=== PATIENT | female | born 1945 | race Caucasian/White ===

== ENCOUNTER 2020-02-13 14:37 | Inpatient (IN) | payer MEDICARE, SELFPAY ==
[2020-02-13] VITALS (9 sets, daily range): BP systolic 127–149; BP diastolic 56–79; PULSE 77–98; RESP 15–20; TEMP 36.7–37; O2SAT 92–97; BMI 31.6
--- NOTE | 2020-02-13 14:53 | XR_ITS ---
WS: [id number] XR chest 1V [id number] REASON FOR EXAM: coughing up blood FINDINGS: Infiltrate is noted in the right lower lung. This was not seen on August 14, 2019. There appears to be mild nodules now seen in both lung grajeda. The heart is not enlarged. [place] the hilum is and apices are normal. XR/XR chest 1V 00312 IMPRESSION: Infiltrate in the right lower lung Small nodules are now seen in both lung grajeda Follow-up evaluation after therapy for the infiltrate recommended.
[2020-02-13 15:57] LABS: Basophils # 0.1 10^3/uL (0.0-0.1); Basophils % 1.1 %; Eosinophils # 0.1 10^3/uL (0.0-0.8); Eosinophils % 0.7 %; Hematocrit 41.9 % (37.0-47.0); Hemoglobin 13.1 g/dL (11.5-15.3); Lymphocytes # 1.1 10^3/uL (0.8-4.8); Lymphocytes % 13.5 %; Mean Corpuscular HGB Conc 31.3 g/dL (30.0-36.0); Mean Corpuscular Hemoglobin 29.9 pg (28.0-34.0); Mean Corpuscular Volume 95.7 fL (81-99); Mean Platelet Volume 10.1 fL (7.4-10.4); Monocytes # 0.5 10^3/uL (0.2-0.9); Monocytes % 6.1 %; Neutrophils # 6.3 10^3/uL (1.8-7.7); Neutrophils % 78.4 %; Nucleated Red Blood Cells % 0 %; Platelet Count 317 10^3/cmm (130-400); Red Blood Count 4.38 10^6/uL (4.1-5.3); Red Cell Distribution Width 13.5 % (12.1-15.1); White Blood Count 8.1 10^3/uL (4.0-10.0)
--- NOTE | 2020-02-13 16:06 | CTR_ITS ---
PROCEDURE INFORMATION: Exam: CT Angiography Chest With Contrast Exam date and time: 02/13/2020 4:12 PM Age: 74 years old Clinical indication: Shortness of breath; Additional info: Dyspnea TECHNIQUE: Imaging protocol: Computed tomographic angiography of the chest with intravenous contrast. 3D rendering: MIP and/or 3D reconstructed images were created by the technologist. Total DLP: 558.18 mGy-cm Radiation optimization: All CT scans at this facility use at least one of these dose optimization techniques: automated exposure control; mA and/or kV adjustment per patient size (includes targeted exams where dose is matched to clinical indication); or iterative reconstruction. Contrast material: VISI 320; Contrast volume: 95 ml; Contrast route: LT AC; COMPARISON: CTA Chest-Pulmonary Emb [id number] 08/15/2019 5:34 PM FINDINGS: Pulmonary arteries: There is no evidence of filling defects within the pulmonary arterial circulation to suggest pulmonary embolism. Aorta: Unremarkable. No aortic aneurysm. No aortic dissection. Lungs: There is partial atelectasis of the right lower lobe medially at the right lung base. There is some bronchial wall thickening in peribronchial infiltrate and consolidation in the right lower lobe consistent with bronchopneumonia. There is also a tree-in-bud type pattern of centrilobular opacities which may represent some infectious bronchiolitis. There are scattered lobules throughout both lungs with an upper lobe predominance demonstrating ground-glass opacities which could represent some pneumonitis including viral pneumonitis. There is a new ill-defined 6 mm size nodule in the left lower lobe on image number 252 series 2 which is likely inflammatory. There is mild lobular septal thickening of the lung bases which may represent some interstitial edema. Left lower lobe pneumonia demonstrated on the previous examination has cleared. Pleural space: There are small bilateral pleural effusions. Heart: Unremarkable. No cardiomegaly. No pericardial effusion. Lymph nodes: There is mild hilar, subcarinal mediastinal adenopathy with many small mediastinal lymph nodes measuring up to 8 x 14 mm. This represents an increase from 08/15/2019. Bones/joints: Unremarkable. No acute fracture. Soft tissues: Unremarkable. CT/CT angio chest PE protcl [id number] IMPRESSION: 1. Findings of infectious bronchiolitis and bronchopneumonia in the right lower lobe. 2. Scattered bilateral ground-glass opacities which could represent additional areas of pneumonitis 3. Possible interstitial edema at the lung bases 4. Right lower lobe atelectasis 5. Small bilateral pleural effusions. 6. Mild hilar and mediastinal adenopathy which may be reactive. 7. New left lower lobe nodule, follow-up according to Fleischner society guidelines is recommended. For patients at low risk (minimal or absent history of smoking and of other known risk factors), recommend CT at 6-12 months, then consider CT at 18-24 months. For patients at high risk (history of smoking or of other known risk factors), recommend CT at 6-12 months, then CT at 18-24 months. (Sage et al., Fleischner Society, 2017) 8. No evidence of pulmonary embolism. COMMENTS: Findings were discussed with vito Pritchett at 02/13/2020 5:55 PM CDT. Radiation Dose CTDIVOL = (mGy): DLP = 558.18 (mGy-cm)
--- NOTE | 2020-02-13 16:07 | ECG_ITS ---
Measurements Intervals [place] Rate: 75 P: 71 TN: 156 QRS: -44 QRSD: 137 T: 120 QT: 449 QTc: 502 SINUS RHYTHM POSSIBLE LEFT ATRIAL ENLARGEMENT [-0.1mV P WAVE IN V1/V2] LEFT AXIS DEVIATION [QRS AXIS < -30] LEFT BUNDLE BRANCH BLOCK [120+ ms QRS DURATION, 80+ ms Q/S IN V1/V2, 85+ ms R IN I/ I/ I/ I/aVL/V5/V6] Compared to ECG 08/14/2019 18:01:36 No significant changes Electronically Signed On 02-14-2020 12:41:14 CDT by Jody Elaine [id number] f
[2020-02-13 16:10] LABS: Alanine Aminotransferase 14 U/L (0-33); Albumin Level 3.3 g/dL (3.5-5.2); Alkaline Phosphatase 82 IU/L (35-105); Aspartate Amino Transferase 22 U/L (0-32); Blood Urea Nitrogen 20 mg/dL (8-23); Calcium 10.1 mg/dL (8.5-10.5); Carbon Dioxide 26 mmol/L (22-29); Chloride 105 mmol/L (98-107); Creatinine Clr Calc Pharmacy 35.6719; Globulin 3.3 g/dL (1.3-4.6); Glucose 113 mg/dL (65-115); Osmolality Calculated 289 mOsm/kg (285-295); Sodium 141 mmol/L (136-145); Total Bilirubin 0.4 mg/dL (0.15-1.2); Total Protein 6.6 g/dL (6.6-8.7)
--- NOTE | 2020-02-13 16:16 | ED_ITS ---
HPI - General Adult General: Chief complaint: General Medical Stated complaint: coughing up blood Time Seen by Provider: 02/13/20 15:43 Source: patient Mode of arrival: ambulatory Limitations: no limitations History of Present Illness: HPI narrative: 74-year-old female who states she has had a cough over the last 2 days. She states she had a coughing fit today and started coughing up some blood. States the blood was bright red in nature. She had slight shortness of breath and low-grade fevers. Denies any worsening improving factors. Denies any vomiting. She denies any chest pain. Onset (ago): hour(s) Severity: moderate Associated symptoms: Deny chest pain, dyspnea, headache(s), nausea, rash or vomiting Review of Systems Const: Denies: fever, chills, body aches or change in appetite Eyes: Denies: blurry vision or eye discomfort ENMT: Denies: throat pain or dental pain Card: Denies: chest pain Resp: Reports: productive cough and coughing up blood; Denies: shortness of breath GI: Denies: abdominal pain, nausea, vomiting or diarrhea : Denies: painful urination Musc: Denies: neck pain or back pain Skin/Breast: Denies: rash Neuro: Denies: headache Psych: Denies: depression Gume/Lymph: Denies: easy bruising All/Imm: Denies: hives PFS ED PFSH: Medical History Chest pain CKD (chronic kidney disease) Hyperlipidemia Hypothyroidism LBBB (left bundle branch block) SVT (supraventricular tachycardia) Social History Smoking and tobacco status: never smoked Alcohol intake: never Physical Exam Const: COMMON NORMALS: no apparent distress, oriented x3 and healthy appearing HENMT: COMMON NORMALS: normocephalic and head/scalp atraumatic HEAD & SCALP: normocephalic and atraumatic Eye: COMMON NORMALS: PERRL and EOMs intact bilaterally PUPIL: Yes PERRL Neck/C-Spine: COMMON NORMALS: full ROM and supple Chest: COMMONS NORMALS: inspection of chest normal and palpation of chest normal Resp: COMMON NORMALS: normal respiratory effort, no retractions and no use of accessory muscles OTHER: rales in RLL Cardio: COMMON NORMALS: regular rate, regular rhythm and no murmurs RATE: regular rate RHYTHM: regular rhythm GI: COMMON NORMALS: normal to inspection, nondistended, normoactive bowel sounds, soft to palpation, non-tender and no masses PALPATION: Yes soft Extremity: COMMON NORMALS: normal to inspection and full ROM Neuro: COMMON NORMALS: oriented x3, moves all extremities and no focal motor deficits Psych: COMMON NORMALS: mental status grossly normal, thought process normal and cooperative THOUGHT PROCESS: normal thought process Skin: COMMON NORMALS: no rashes or lesions noted and no wounds GENERAL SKIN EXAM: no rashes or lesions noted Course Vital Signs: Vital signs: Vital Signs Temperature 98.1 F 02/13/20 14:43 Pulse Rate 83 02/13/20 18:00 Respiratory Rate 15 02/13/20 18:00 Blood Pressure 137/71 02/13/20 18:00 Pulse Oximetry 94 02/13/20 18:00 MDM - General Adult MDM Narrative: Medical decision making narrative: Patient presents here with cough hemoptysis. Patient's CT shows a pneumonia. Patient is well-appearing here and is in no extreme distress. Patient started on IV antibiotics I spoke to the hospitalist and will admit at this time. Lab Data: Labs: Lab Results 02/13/20 02/13/20 02/13/20 Range/Units 15:50 15:50 15:50 WBC 8.1 (4.0-10.0) 10^3/ uL RBC 4.38 (4.1-5.3) 10^6/u L Hgb 13.1 (11.5-15.3) g/dL Hct 41.9 (37.0-47.0) % MCV 95.7 (81-99) fL MCH 29.9 (28.0-34.0) pg MCHC 31.3 (30.0-36.0) g/dL RDW 13.5 (12.1-15.1) % Plt Count 317 (130-400) 10^3/c mm MPV 10.1 (7.4-10.4) fL Neut % (Auto) 78.4 % Lymph % (Auto) 13.5 % [place] % (Auto) 6.1 % Eos % (Auto) 0.7 % Baso % (Auto) 1.1 % Neut # (Auto) 6.3 (1.8-7.7) 10^3/u L Lymph # (Auto) 1.1 (0.8-4.8) 10^3/u L [place] # (Auto) 0.5 (0.2-0.9) 10^3/u L Eos # (Auto) 0.1 (0.0-0.8) 10^3/u L Baso # (Auto) 0.1 (0.0-0.1) 10^3/u L Nucleated RBC % (a uto) 0 % Nucleated RBCs # 0.0 /100WBC PT 14.70 H (10.5-13.3) SECO NDS INR 1.11 (0.8-1.2) Sodium 141 (136-145) mmol/L Potassium 4.0 (3.5-5.1) mmol/L Chloride 105 (98-107) mmol/L Carbon Dioxide 26 (22-29) mmol/L Anion Gap 14.0 (5-19) BUN 20 (8-23) mg/dL Creatinine 1.5 H (0.5-0.9) mg/dL Glucose 113 (65-115) mg/dL Calculated Osmolal ity 289 (285-295) mOsm/k g Calcium 10.1 (8.5-10.5) mg/dL Total Bilirubin 0.4 (0.15-1.2) mg/dL AST 22 (0-32) U/L ALT 14 (0-33) U/L Alkaline Phosphata se 82 (35-105) IU/L Troponin T Baselin e (0-10) ng/mL Troponin T 120 Min [place] (0-10) ng/mL Delta Troponin T (0-10) ABS# Total Protein 6.6 (6.6-8.7) g/dL Albumin 3.3 L (3.5-5.2) g/dL Globulin 3.3 (1.3-4.6) g/dL Influenza Type A A g (Negative) POC Influenza B Ag (Negative) 02/13/20 02/13/20 02/13/20 Range/Units 15:50 17:54 17:55 WBC (4.0-10.0) 10^3/ uL RBC (4.1-5.3) 10^6/u L Hgb (11.5-15.3) g/dL Hct (37.0-47.0) % MCV (81-99) fL MCH (28.0-34.0) pg MCHC (30.0-36.0) g/dL RDW (12.1-15.1) % Plt Count (130-400) 10^3/c mm MPV (7.4-10.4) fL Neut % (Auto) % Lymph % (Auto) % [place] % (Auto) % Eos % (Auto) % Baso % (Auto) % Neut # (Auto) (1.8-7.7) 10^3/u L Lymph # (Auto) (0.8-4.8) 10^3/u L [place] # (Auto) (0.2-0.9) 10^3/u L Eos # (Auto) (0.0-0.8) 10^3/u L Baso # (Auto) (0.0-0.1) 10^3/u L Nucleated RBC % (a uto) % Nucleated RBCs # /100WBC PT (10.5-13.3) SECO NDS INR (0.8-1.2) Sodium (136-145) mmol/L Potassium (3.5-5.1) mmol/L Chloride (98-107) mmol/L Carbon Dioxide (22-29) mmol/L Anion Gap (5-19) BUN (8-23) mg/dL Creatinine (0.5-0.9) mg/dL Glucose (65-115) mg/dL Calculated Osmolal ity (285-295) mOsm/k g Calcium (8.5-10.5) mg/dL Total Bilirubin (0.15-1.2) mg/dL AST (0-32) U/L ALT (0-33) U/L Alkaline Phosphata se (35-105) IU/L Troponin T Baselin e 63 H (0-10) ng/mL Troponin T 120 Min [place] 74.52 H (0-10) ng/mL Delta Troponin T 11.52 H* (0-10) ABS# Total Protein (6.6-8.7) g/dL Albumin (3.5-5.2) g/dL Globulin (1.3-4.6) g/dL Influenza Type A A g Negative (Negative) POC Influenza B Ag Negative (Negative) Imaging Data^: CT Chest: Attestation: I personally reviewed and interpreted this imaging study as follows: Radiologist's impression: [facility] [address] [place] [address] CT Scan Report Signed Patient: Rowan Matthews Unit #: [id number] : 1945 Age/Sex: 74 / F ADM Date: 02/13/20 Loc: ER Room/Bed: Attending Dr: Ordering Provider/Ordering MD: Brigida Pritchett MD Date of Service: 02/13/20 Procedure(s): CT angio chest PE protcl [id number] Accession Number(s): [id number] Report Number: [id number] PROCEDURE INFORMATION: Exam: CT Angiography Chest With Contrast Exam date and time: 02/13/2020 4:12 PM Age: 74 years old Clinical indication: Shortness of breath; Additional info: Dyspnea TECHNIQUE: Imaging protocol: Computed tomographic angiography of the chest with intravenous contrast. 3D rendering: MIP and/or 3D reconstructed images were created by the technologist. Total DLP: 558.18 mGy-cm Radiation optimization: All CT scans at this facility use at least one of these dose optimization techniques: automated exposure control; mA and/or kV adjustment per patient size (includes targeted exams where dose is matched to clinical indication); or iterative reconstruction. Contrast material: VISI 320; Contrast volume: 95 ml; Contrast route: LT AC; COMPARISON: CTA Chest-Pulmonary Emb [id number] 08/15/2019 5:34 PM FINDINGS: Pulmonary arteries: There is no evidence of filling defects within the pulmonary arterial circulation to suggest pulmonary embolism. Aorta: Unremarkable. No aortic aneurysm. No aortic dissection. Lungs: There is partial atelectasis of the right lower lobe medially at the right lung base. There is some bronchial wall thickening in peribronchial infiltrate and consolidation in the right lower lobe consistent with bronchopneumonia. There is also a tree-in-bud type pattern of centrilobular opacities which may represent some infectious bronchiolitis. There are scattered lobules throughout both lungs with an upper lobe predominance demonstrating ground-glass opacities which could represent some pneumonitis including viral pneumonitis. There is a new ill-defined 6 mm size nodule in the left lower lobe on image number 252 series 2 which is likely inflammatory. There is mild lobular septal thickening of the lung bases which may represent some interstitial edema. Left lower lobe pneumonia demonstrated on the previous examination has cleared. Pleural space: There are small bilateral pleural effusions. Heart: Unremarkable. No cardiomegaly. No pericardial effusion. Lymph nodes: There is mild hilar, subcarinal mediastinal adenopathy with many small mediastinal lymph nodes measuring up to 8 x 14 mm. This represents an increase from 08/15/2019. Bones/joints: Unremarkable. No acute fracture. Soft tissues: Unremarkable. CT/CT angio chest PE protcl [id number] IMPRESSION: 1. Findings of infectious bronchiolitis and bronchopneumonia in the right lower lobe. 2. Scattered bilateral ground-glass opacities which could represent additional areas of pneumonitis 3. Possible interstitial edema at the lung bases 4. Right lower lobe atelectasis 5. Small bilateral pleural effusions. 6. Mild hilar and mediastinal adenopathy which may be reactive. 7. New left lower lobe nodule, follow-up according to Fleischner society guidelines is recommended. For patients at low risk (minimal or absent history of smoking and of other known risk factors), recommend CT at 6-12 months, then consider CT at 18-24 months. For patients at high risk (history of smoking or of other known risk factors), recommend CT at 6-12 months, then CT at 18-24 months. (Sage et al., Fleischner Society, 2017) 8. No evidence of pulmonary embolism. EKG Data^: EKG 1: Attestation: I personally reviewed and interpreted this EKG as follows: EKG interpretation date: 02/13/20 EKG interpretation time: 16:28 Interpretation: nsr hr [address] or t wave abnormalities qrs 137 qtc 477 lad lbbb Computer generated interpretation: Chest X-Ray 02/13/20 14:53 IMPRESSION: Infiltrate in the right lower lung Small nodules are now seen in both lung grajeda Follow-up evaluation after therapy for the infiltrate recommended. Chest CTA 02/13/20 16:06 IMPRESSION: 1. Findings of infectious bronchiolitis and bronchopneumonia in the right lower lobe. 2. Scattered bilateral ground-glass opacities which could represent additional areas of pneumonitis 3. Possible interstitial edema at the lung bases 4. Right lower lobe atelectasis 5. Small bilateral pleural effusions. 6. Mild hilar and mediastinal adenopathy which may be reactive. 7. New left lower lobe nodule, follow-up according to Fleischner society guidelines is recommended. For patients at low risk (minimal or absent history of smoking and of other known risk factors), recommend CT at 6-12 months, then consider CT at 18-24 months. For patients at high risk (history of smoking or of other known risk factors), recommend CT at 6-12 months, then CT at 18-24 months. (MacMaholisa, et al., Fleischner Society, 2017) 8. No evidence of pulmonary embolism. COMMENTS: Findings were discussed with brigida Pritchett at 02/13/2020 5:55 PM CDT. Radiation Dose CTDIVOL = (mGy): DLP = 558.18 (mGy-cm) EKG 2: Attestation: I personally reviewed and interpreted this EKG as follows: EKG interpretation date: 02/13/20 Computer generated interpretation: Chest X-Ray 02/13/20 14:53 IMPRESSION: Infiltrate in the right lower lung Small nodules are now seen in both lung grajeda Follow-up evaluation after therapy for the infiltrate recommended. Chest CTA 02/13/20 16:06 IMPRESSION: 1. Findings of infectious bronchiolitis and bronchopneumonia in the right lower lobe. 2. Scattered bilateral ground-glass opacities which could represent additional areas of pneumonitis 3. Possible interstitial edema at the lung bases 4. Right lower lobe atelectasis 5. Small bilateral pleural effusions. 6. Mild hilar and mediastinal adenopathy which may be reactive. 7. New left lower lobe nodule, follow-up according to Fleischner society guidelines is recommended. For patients at low risk (minimal or absent history of smoking and of other known risk factors), recommend CT at 6-12 months, then consider CT at 18-24 months. For patients at high risk (history of smoking or of other known risk factors), recommend CT at 6-12 months, then CT at 18-24 months. (MacSalvatoreholisa et al., Fleischner Society, 2017) 8. No evidence of pulmonary embolism. COMMENTS: Findings were discussed with brigida Pritchett at 02/13/2020 5:55 PM CDT. Radiation Dose CTDIVOL = (mGy): DLP = 558.18 (mGy-cm) Discharge Plan Discharge Prescriptions: No Action alprazolam 0.25 mg tablet 0.25 mg PO DAILY RF: 0 aspirin [Adult Low Dose Aspirin] 81 mg tablet,delayed release (DR/EC) 81 mg PO DAILY RF: 0 biotin 1 mg capsule 1 mg PO DAILY RF: 0 All Day Allergy (cetirizine) 10 mg capsule PO DAILY RF: 0 fluticasone propionate [Flonase Allergy Relief] 50 mcg/actuation spray,suspension 1 spray INTRANASAL BID RF: 0 levothyroxine 137 mcg capsule 137 mcg PO DAILY RF: 0 magnesium oxide 400 mg magnesium capsule 400 mg PO DAILY RF: 0 metoprolol succinate 50 mg tablet extended release 24 hr 75 mg PO DAILY RF: 0 multivitamin Tablet 1 tab PO DAILY RF: 0 nitroglycerin 0.4 mg tablet, sublingual 0.4 mg SUBLINGUAL Q5M PRNRF: 0 olmesartan 5 mg tablet 5 mg PO DAILY RF: 0 omega-3 fatty acids 1,000 mg capsule 1,000 mg PO BID RF: 0 potassium gluconate 595 mg (99 mg) tablet 595 mg PO DAILY RF: 0 ezetimibe [Zetia] 10 mg tablet 10 mg PO DAILY RF: 0 Coding Level of Care Code ED [employer] Executive for Chg Fwd Exam Comprehensive
[2020-02-13 16:24] LABS: INR 1.11 (0.8-1.2)
[2020-02-13] MEDS: cefTRIAXone 1,000 MG in sodium chloride 0.9% (plus) 50 ML 100 MG IV (16:28)
[2020-02-13 16:29] LABS: Troponin(5th) Baseline 63 ng/mL (0-10)
[2020-02-13] MEDS: iodixanol 320 mg/mL 100mL Btl IV (16:44)
[2020-02-13] MEDS: sodium chloride 0.9% 1,000 ML 999 ML IV (17:18)
[2020-02-13] MEDS: azithromycin 500 MG in sodium chloride 0.9% 250 ML 250 MG IV (17:19)
--- NOTE | 2020-02-13 18:07 | ECG_ITS ---
Measurements Intervals [place] Rate: 85 P: 65 NH: 143 QRS: -49 QRSD: 137 T: 116 QT: 436 QTc: 519 SINUS RHYTHM INTRAVENTRICULAR CONDUCTION DELAY [130+ ms QRS DURATION] INFERIOR MYOCARDIAL INFARCTION , old Electronically Signed On 02-14-2020 12:45:37 CDT by Jody Elaine [email or web address]
[2020-02-13 18:21] LABS: Troponin 5 2HR 74.52 ng/mL (0-10)
[2020-02-13 18:28] LABS: Influenza A by IFA Negative (Negative); Influenza B by IFA Negative (Negative)
[2020-02-13 18:28] LABS: Troponin 5 2HR Delta 11.52 ABS# (0-10)
--- NOTE | 2020-02-13 19:03 | PC.NURSE ---
Report received from COLTON Callahan and care transferred to COLTON Riojas
--- NOTE | 2020-02-13 20:41 | PC.NURSE ---
ADMIT NOTE Pt received to room from ER at 2014. Is alert and oriented. Reports has been having some SOB but worse today and started coughing up some blood today. Decided she needed to come to the ER. Has c/o some discomfort in right ribcage/chest that she says has decreased. No pain with deep breathing. O2 placed at 2l per NC. Pt says wears at night due to desat with sleep study done. PIID intact to right ac area. VS check done. RN completing admission assessment
[2020-02-13 21:09] LABS: NT Pro B Type Natriuretic Pept 6273 pg/mL (0-125)
[2020-02-13 22:42] LABS: Troponin 5 6HR 78.59 ng/mL (0-10)
[2020-02-13 22:44] LABS: Troponin 5 6HR Delta 15.59 ng/L (0-12)
[2020-02-13 22:51] LABS: Procalcitonin 0.05 ng/mL (0-0.5)
--- NOTE | 2020-02-13 22:53 | P.HP_ITS ---
Providers/Chief Complaint Admitting Physician: Theresa Yan MD Primary Care Provider: Shanthi Davis APN Chief Complaint: coughing up blood History of Present Illness Rowan Matthews is a 74 year old female with a past medical history of hypertension(on Benicar and metoprolol), history of leg swelling who was previously on Lasix, history of chest discomfort which he had noted late in 2019 and was worked up with an echocardiogram which was within normal limits. Also had a Lexiscan in July 2019 which was normal. Underwent a Holter monitor due to history of SVT which showed sinus rhythm with IVCD and intermittent rate related aberrancy. She does not have a known history of CAD. She has followed with Dr. Edge in November 2019 there were no acute concerns at the time. She presents today with chief complaint of having developed worsening cough over the past 2 days. She states she normally has been experiencing a chronic cough, which is worsened since yesterday. Today she afternoon she had a bout of cough which has been associated with hemoptysis. Blood was bright red and she estimates about half a cup volume. This has not recurred since then. She took some Tessalon Perles and this appeared to have relieved her symptoms. She denies feeling short of breath. She does have a history of sleep apnea and uses nightly oxygen at 2 L/min. Her O2 requirement is at baseline. She denies any regular use of inhalers or nebulizers. Denies any upper respiratory tract symptoms. Does endorse a history of multiple seasonal allergies however does not feel these are worsened over her baseline. Denies any history of fevers. She is saturating 95 to 97% on 2 L/min nasal cannula which is her baseline. However on exam she is noted to be tachypneic with respiratory rate 20s. She denies any lower extremity leg swelling, however on exam she does have 1+ pitting edema. She denies any current chest pain. Due to concerns for PE she ended up undergoing a CTA chest which was negative for PE. The study however did show bilateral infiltrates which were read per radiology as being possible bilateral pneumonitis and some fluid with pleural effusions. These findings are new compared to a CT a of the chest taken in 2019. Her troponins are noted to be elevated mildly however with significant delta of 11 and then 15. She denies any recent sick contacts. There is no history of travel except to see a softball game in [place] last week. Due to concerns of pneumonia she received ceftriaxone and azithromycin in the ED. denies any fever or chills Review of Systems General: Reports: 10 or more systems reviewed and unremarkable except in HPI and below Const: Denies: fever, chills or body aches Eyes: Denies: change in vision, blurry vision or photophobia ENMT: Denies: throat pain, enlarged tonsils, painful swallowing, hoarseness or nasal congestion Card: Denies: chest pain, palpitations, irregular heart rhythm, edema, swelling of feet/ankles, lightheadedness, pre-syncope, shortness of breath on exertion or shortness of breath when lying down Resp: Reports: productive cough and coughing up blood; Denies: shortness of breath, non-productive cough, wheezing, stridor, pain on inspiration, change in phlegm color or chest congestion GI: Denies: abdominal pain, nausea, vomiting, vomiting blood, coffee grounds in vomit, difficulty swallowing, heartburn/indigestion, diarrhea, constipation, cramping, change in stool character, blood in stool or black tarry stool : Denies: flank pain, difficulty urinating, painful urination, urinary freq uency, urinary urgency, urinary hesitancy or blood in urine Musc: Denies: neck pain, back pain, extremity pain, joint swelling, joint warmth or deformity Neuro: Denies: headache, numbness in extremities, weakness in extremities, changes in sensation, difficulty walking, frequent falls, dizziness, vertigo, behavioral changes, slurred speech or seizure-like activity Psych: Denies: anxiety, depression, suicidal ideation or homicidal ideation Endo: Denies: excessive urination, excessive thirst, tired all the time, cold intolerance or hot flashes Gume/Lymph: Denies: easy bruising or easy bleeding Medications/Allergies Allergies Allergy/AdvReac Type Severity Reaction Status Date / Time codeine Allergy Unknown Unknown Verified 12/04/19 22:51 Penicillins Allergy Unknown Unknown Verified 12/04/19 22:51 Tetracyclines Allergy Unknown Unknown Verified 12/04/19 22:51 PFSH Acute PFSH: Medical History Chest pain CKD (chronic kidney disease) Hyperlipidemia Hypothyroidism LBBB (left bundle branch block) SVT (supraventricular tachycardia) Social History Smoking and tobacco status: never smoked Alcohol intake: never Vitals/I&O/Wt Last Vital Signs Temp 98.6 F 02/13/20 21:00 Pulse 88 02/13/20 21:00 Resp 20 H 02/13/20 21:00 BP 141/79 02/13/20 21:00 Pulse Ox 95 02/13/20 21:00 02/13/20 02/13/20 02/13/20 06:59 14:59 22:59 Intake Total 1420 / 1420 Balance 1420 / 1420 Weight last 48 hrs Weight 86.183 kg Physical Exam Narrative: EXAM NARRATIVE: GEN: Awake, alert and oriented, no acute distress CVS: S1S2 N RS: CTA B/L Abd: Soft, nt/nd , bs+ 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 Data : 02/13/20 15:50 02/13/20 15:50 Micro: Microbiology 02/13/20 16:28 Blood Culture - Preliminary Blood SPECIMEN COLLECTED 02/13/20 15:50 Blood Culture - Preliminary Blood SPECIMEN COLLECTED Other data: # Lexiscan MPI (08/15/2019): Normal MPI. TID 1.21. LVEF=74%. No RWMA. # TTE (08/15/2019): Normal LV size and function. No RWMA. LVEF=73%. Grade1 DD. Midly increased LA size. PAP-49 mm Hg. # Labs (08/16/19): potassium-4.2, BUN-152, BUN-19, Cr-1.3, Alb-2.7, KvV7T-9.3. Mg-2.1. TC-212, TG-139, LDL-151, HDL-33. #Holter (08/16/19): Sinus rhythm with IVCD and intermittent rate related abberency. 2% of total beats analyzed were SRINIVASA. 159 runs of NCT with longest run 27 beats long and fastest at 143 bpm. A&P Assessment and plan (1) Hyperlipidemia: Status: Acute Qualifiers: Hyperlipidemia type: mixed hyperlipidemia Qualified Code(s): E78.2 - Mixed hyperlipidemia Code(s): E78.5 - Hyperlipidemia, unspecified (2) Hypothyroidism: Status: Acute Qualifiers: Hypothyroidism type: acquired Qualified Code(s): E03.9 - Hypothyroidism, unspecified Code(s): E03.9 - Hypothyroidism, unspecified (3) LBBB (left bundle branch block): Status: Acute Code(s): I44.7 - Left bundle-branch block, unspecified (4) CHF (congestive heart failure): Status: Acute Code(s): I50.9 - Heart failure, unspecified (5) Demand ischemia: Status: Acute Code(s): I24.8 - Other forms of acute ischemic heart disease (6) Hemoptysis: Status: Acute Code(s): R04.2 - Hemoptysis Additional A&P Information Patient is already up on [facility] floor at the time of my evaluation. Will add on telemetry and continuous pulse oximetry at this time. 1. Hemoptysis: This is currently resolved Per patient history this appears to be related to bout of cough followed by hemoptysis, may be likely related to pharyngeal irritation or tears. No obvious bleeding currently noted on oropharyngeal exam. Tessalon Perles and Robitussin for cough suppression. Continue with fluticasone nasal suspension for history of postnasal drip. 2. Infiltrates noted on CTA chest Given patient's history of persisting cough, lower extremity edema as noted on exam, nature of infiltrates on radiological study, added on BNP greater than 6000 and elevated troponins, overall impression appears to be most consistent with CHF and pulmonary edema. Lasix IV 40 mg overnight with monitoring of urine output strictly. Repeat chest x-ray in the morning to see if infiltrates improved with diuresis. Other differentials include atypical pneumonia, however this appears to be less likely given lack of fever, unchanged oxygen requirements over baseline and a negative pro calcitonin which was added on to existing labs. Viral pneumonitis can also present with similar infiltrates on the CT. Influenza serology was negative. Call was placed to the regional credit risk analytics manager hotline to see if patient would fit criteria for testing for COVID 19. Given lack of fever, no antecedent travel history or sick contact history possible alternate etiology, she was thought to be low risk and did not meet criteria for testing at the state lab. If however she does develop fever or has an acute clinical change with worsening infiltrates, this may need to be reassessed. 3. Congestive heart failure Clinically appears to have CHF. Lasix as above. The patient does not report any history of dyspnea, she is obviously tachypneic on attempting to converse with respiratory rate ranging between 20-22. Will order an echocardiogram to see if there is any change control manager one from July 2019. Previously echo with a EF of 73% and no regional wall motion abnormalities. Last stress test in July 2019 was negative. Based on results of echocardiogram, may need further evaluation with cardiology service. Moderate pulmonary hypertension was noted on the previous echo. 4. Troponin increased with elevated delta's, likely to represent demand ischemia in the setting of CHF. Aspirin 325 mg now followed by 81 mg p.o. daily. 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 She is therefore currently on ezetimibe and omega-3 fatty acids[address] No acute ST-T changes on EKG and no chest pain, unlikely to be acute OH. We will check lipid panel and HbA1c in the morning. #5 hypertension continue metoprolol. Hold on losartan for now since patient will need diuresis and currently creatinine is at 1.5, up from baseline of 1.2- 1.3. #6 hypothyroidism: Continue 137 mics daily. Full code Dvt ppx: lovenox Attestations Medical Necessity Statement*: Anticipate greater than 2 midnight admission for evaluation of what appears to be clinically CHF Coding Level of Care Code Acute Cash Reconciliation Specialist for Chg Fwd Diagnoses Hyperlipidemia E78.2 Hyperlipidemia type: mixed hyperlipidemia Hypothyroidism E03.9 Hypothyroidism type: acquired LBBB (left bundle branch block) I44.7 CHF (congestive heart failure) I50.9 Demand ischemia I24.8 Hemoptysis R04.2
[2020-02-13] MEDS: aspirin 81 mg Chew Tablet 324 MG PO (22:59)
[2020-02-13] MEDS: enoxaparin 40 mg/0.4 mL Syringe SUBCUT (23:00)
[2020-02-13] MEDS: FUROsemide 10 mg/mL SDV 2mL 20 MG IVP (23:00)
[2020-02-14] MEDS: FUROsemide 10 mg/mL SDV 2mL 20 MG IVP (02:38)
[2020-02-14 03:52] VITALS: BP 113/70; PULSE 74; RESP 18; TEMP 37.1; O2SAT 94
[2020-02-14 06:24] LABS: Basophils # 0.1 10^3/uL (0.0-0.1); Basophils % 1.3 %; Eosinophils # 0.1 10^3/uL (0.0-0.8); Eosinophils % 1.3 %; Hematocrit 38.4 % (37.0-47.0); Lymphocytes % 25.4 %; Mean Corpuscular HGB Conc 31.3 g/dL (30.0-36.0); Mean Corpuscular Hemoglobin 29.6 pg (28.0-34.0); Mean Corpuscular Volume 94.6 fL (81-99); Mean Platelet Volume 10.1 fL (7.4-10.4); Monocytes # 0.7 10^3/uL (0.2-0.9); Monocytes % 8.3 %; Neutrophils % 63.4 %; Nucleated Red Blood Cells % 0 %; Platelet Count 292 10^3/cmm (130-400); Red Blood Count 4.06 10^6/uL (4.1-5.3); Red Cell Distribution Width 13.4 % (12.1-15.1); White Blood Count 7.9 10^3/uL (4.0-10.0)
[2020-02-14 06:40] LABS: Alanine Aminotransferase 13 U/L (0-33); Albumin Level 3.1 g/dL (3.5-5.2); Alkaline Phosphatase 76 IU/L (35-105); Anion Gap 15.6 (5-19); Aspartate Amino Transferase 21 U/L (0-32); Blood Urea Nitrogen 18 mg/dL (8-23); Calcium 9.5 mg/dL (8.5-10.5); Carbon Dioxide 25 mmol/L (22-29); Chloride 105 mmol/L (98-107); Globulin 3.1 g/dL (1.3-4.6); Glucose 105 mg/dL (65-115); Osmolality Calculated 291 mOsm/kg (285-295); Potassium 3.6 mmol/L (3.5-5.1); Sodium 142 mmol/L (136-145); Total Bilirubin 0.8 mg/dL (0.15-1.2); Total Protein 6.2 g/dL (6.6-8.7)
[2020-02-14 07:02] LABS: Troponin T (5th) Once 103 ng/mL (0-10)
[2020-02-14 08:00] VITALS: BP 130/74; PULSE 82; RESP 18; TEMP 36.8; O2SAT 93
--- NOTE | 2020-02-14 08:00 | XR_ITS ---
WS: [id number] XR chest 1V portable [id number] REASON FOR EXAM: follow up lung infiltrates FINDINGS: Reticular pattern persists in both lung grajeda with scattered nodules in the right lung. Th e pattern is unchanged since February 13, 2020. The heart size is unchanged. The hilum and apices normal. XR/XR chest 1V portable [id number] IMPRESSION: Unchanged interstitial infiltrates bilaterally.
[2020-02-14] MEDS: omega-3 fatty acids 1,000 mg Capsule 1000 MG PO ×2 (08:14→18:04)
[2020-02-14] MEDS: ezetimibe 10 mg Tablet PO (08:14)
[2020-02-14] MEDS: levothyroxine 112 mcg Tablet PO (08:14)
[2020-02-14] MEDS: aspirin 81 mg EC Tablet PO (08:14)
[2020-02-14] MEDS: metoprolol succinate ER (24 HR) 50 mg Tablet 75 MG PO (08:15)
[2020-02-14] MEDS: levothyroxine 25 mcg Tablet PO (08:15)
[2020-02-14] MEDS: magnesium oxide 400 mg tablet PO (08:15)
[2020-02-14 10:30] VITALS: BMI 32.4
[2020-02-14 11:35] VITALS: BP 105/67; PULSE 72; RESP 18; TEMP 37.1; O2SAT 92
--- NOTE | 2020-02-14 14:19 | P.PN_ITS ---
Subjective Subjective: Interval history: Chart reviewed, patient seen and examined, very pleasant, reports feeling much better since yesterday, is currently on room air, hemodynamically stable. Had 1850 urine output overnight after receiving a total of 40 mg IV Lasix. Reports not being on diuretics chronically. Follows up with Dr. Edge. Repeat echo noted, findings discussed with Dr. Elaine. Is chronically on 2 L nasal cannula nightly secondary to nocturnal hypoxemia. Medications: Reviewed: Yes Medication Review Details: Active Medications Generic Name Dose Route Start Last Admin Trade Name Freq PRN Reason Stop Dose Admin Acetaminophen 650 mg 02/13/20 22:25 Tylenol PO Q6H PRN Mild/Mod Pain Or Temp >/= 101 Alprazolam 0.25 mg 02/14/20 09:00 02/14/20 08:13 Xanax PO Not Given DAILY TJ Aspirin 81 mg 02/14/20 09:00 02/14/20 08:14 Aspirin Ec PO 81 mg DAILY TJ Administration Benzonatate 100 mg 02/13/20 22:42 Tessalon Pearls PO TID PRN COUGH Ezetimibe 10 mg 02/14/20 09:00 02/14/20 08:14 Zetia PO 10 mg DAILY TJ Administration Enoxaparin Sodium 40 mg 02/13/20 22:45 02/13/20 23:00 Lovenox SUBCUT 40 mg Q24H TJ Administration Fluticasone Propio mirta 1 spray 02/13/20 22:42 Flonase INTRANASAL BID PRN ALLERGIES Guaifenesin/Dextro methorphan 5 ml 02/13/20 22:42 Robitussin Dm Or al Liq PO Q4H PRN COUGH Levothyroxine Sodi um 25 mcg 02/14/20 09:00 02/14/20 08:15 Synthroid PO 25 mcg DAILY TJ Administration Levothyroxine Sodi um 112 mcg 02/14/20 09:00 02/14/20 08:14 Synthroid PO 112 mcg DAILY TJ Administration Magnesium Oxide 400 mg 02/14/20 09:00 02/14/20 08:15 Magox PO 400 mg DAILY TJ Administration Metoprolol Succina te 75 mg 02/14/20 09:00 02/14/20 08:15 Toprol Xl PO 75 mg DAILY TJ Administration Morphine Sulfate 2 mg 02/13/20 22:25 Morphine IVP Q4H PRN SEVERE PAIN Nitroglycerin 0.4 mg 02/13/20 22:42 Nitrostat SUBLINGUAL Q5M PRN CHEST PAINS Ondansetron HCl 4 mg 02/13/20 22:25 Zofran IVP Q8H PRN vomiting, or N/V if npo codeine Allergy (Unknown, Verified 12/04/19 22:51) Unknown Penicillins Allergy (Unknown, Verified 12/04/19 22:51) Unknown Tetracyclines Allergy (Unknown, Verified 12/04/19 22:51) Unknown Vitals/I&O/Wt Last Vital Signs Temp 98.8 F 02/14/20 11:35 Pulse 72 02/14/20 11:35 Resp 18 02/14/20 11:35 BP 105/67 02/14/20 11:35 Pulse Ox 92 02/14/20 11:35 02/13/20 02/14/20 02/14/20 22:59 06:59 14:59 Intake Total 1420 / 1420 520 / 520 Output Total 1850 / 1850 1100 / 1100 Balance 1420 / 1420 -1850 / -430 -580 / -580 Weight last 48 hrs Weight 88.536 kg Weight 89.403 kg Weight 86.183 kg Physical Exam Const: COMMON NORMALS: no apparent distress and oriented x3 GENERAL APPEARANCE: cooperative and comfortable NUTRITIONAL APPEARANCE: overweight ORIENTATION/CONSCIOUSNESS: Yes awake HENMT: COMMON NORMALS: normocephalic, head/scalp atraumatic, hearing grossly normal bilaterally and moist oral mucous membranes HEAD & SCALP: normocephalic and atraumatic Eye: COMMON NORMALS: PERRL, EOMs intact bilaterally and conjunctivae normal CONJUNCTIVA: Yes conjunctivae normal PUPIL: Yes PERRL Neck/C-Spine: COMMON NORMALS: full ROM GENERAL: Yes normal visual inspection and Yes trachea midline Resp: COMMON NORMALS: normal respiratory effort, no retractions, no use of accessory muscles and clear to auscultation bilaterally EFFORT & INSPECTION: Yes able to speak in complete sentences, Yes symmetric chest movement and No tachypneic AUSCULTATION: clear to auscultation bilaterally Cardio: COMMON NORMALS: regular rate, regular rhythm, S1 normal heart sound and S2 normal heart sound RATE: regular rate RHYTHM: regular rhythm HEART SOUNDS: S1 normal, S2 normal and murmur systolic GI: COMMON NORMALS: normal to inspection, nondistended, normoactive bowel sounds, soft to palpation and non-tender PALPATION: Yes soft Extremity: COMMON NORMALS: normal to inspection, full ROM and no clubbing, cyanosis or edema; negative for no pedal edema Neuro: COMMON NORMALS: oriented x3, moves all extremities, no focal motor deficits and no sensory deficits noted Psych: COMMON NORMALS: mental status grossly normal, thought process normal, cooperative, affect normal and speech normal SPEECH: Yes normal speech THOUGHT PROCESS: normal thought process Skin: COMMON NORMALS: no rashes or lesions noted, no jaundice, no petechiae and no mottling GENERAL SKIN EXAM: no rashes or lesions noted Data : 02/14/20 06:06 02/14/20 06:06 Micro: Microbiology 02/13/20 16:28 Blood Culture - Preliminary Blood SPECIMEN COLLECTED 02/13/20 15:50 Blood Culture - Preliminary Blood SPECIMEN COLLECTED A&P Assessment and plan (1) Hemoptysis: -now resolved -likely secondary to noted bronchopneumonia involving RLL, suspect viral etiology given lack of leukocytosis, pro-calcitonin wnl, afebrile -H/H stable -received dose of Ceftriaxone and Azithromycin in ED, hold off on further abx at this time unless clinical change/suspicion for bacterial infection -continue to monitor respiratory status, supplemental oxygen as needed, has 2 L qhs baseline requirement due to nocturnal hypoxemia Status: Acute Code(s): R04.2 - Hemoptysis (2) CHF (congestive heart failure): -clinically appears to have acute diastolic CHF exacerbation as evidenced by elevated BNP of 6273, lower extremity edema, evidence of fluid overload on imaging -received total of 40 mg IV Lasix last night, has diuresed about 1 L so far -continue daily weights, monitor Is & Os -repeat Echo; EF=65%, moderate aortic stenosis, moderate MR, mild AR, moderate to severe TR, moderate pulmonary HTN (54) -previous echo done in 07/2019 showed an ejection fraction of 73%, G1DD, no RWMA, mild to moderate MR, trace TR, trace MA, moderate pulmonary hypertension (49) -CXR indicates RLL infiltrates, likely fluid vs. infection -VSS, continue to monitor Status: Acute Qualifiers: Heart failure chronicity: acute on chronic Heart failure type: diastolic Qualified Code(s): I50.33 - Acute on chronic diastolic (congestive) heart failure Code(s): I50.9 - Heart failure, unspecified (3) Elevated troponin: -noted elevated troponins with significant delta change, could be secondary to demand ischemia from acute CHF exacerbation -Has had cardiac work-up in the past including nuclear stress testing which was negative in July 2019 -Continue aspirin, ezetimibe; has noted statin intolerance -Follow-up lipid panel, A1c -f/u with Dr. Edge -got full dose ASA, continue 81 mg Status: Acute Code(s): R79.89 - Other specified abnormal findings of blood chemistry Additional A&P Information -Hypothyroidism; continue levothyroxine, check TSH -Obesity: BMI-33 kg/m2 -Anxiety; continue anxiolytics -HTN; continue oral antihypertensives -moderate pulmonary HTN per Echo -noted to have NSVT previously; s/p Holter monitoring showing baseline sinus rhythm with interventricular conduction delay and intermittent rate related aberrancy, telemetry monitoring -CKD, unknown stage, baseline Cr appears to be 1.2-1.3 -cardiac diet as tolerated -DVT ppx with Lovenox -Dispo: home -Code status: FULL code Attestations Medical Necessity Statement*: Patient requires hospitalization for continued management of acute diastolic CHF exacerbation, on diuretics and pneumonia. Time Spent in Patient Care: Greater than 35 minutes (>than 50% of time spent in counselling and/or direct pt care on unit) . Coding Level of Care Code Acute Chief Quality Officer for Chg Fwd Exam Comprehensive Diagnoses Hemoptysis R04.2 CHF (congestive heart failure) I50.33 Heart failure chronicity: acute on chronic Heart failure type: diastolic Elevated troponin R79.89
[2020-02-14 16:00] VITALS: BP 124/75; PULSE 74; RESP 18; TEMP 36.7; O2SAT 93
[2020-02-14 19:41] VITALS: BP 124/73; PULSE 76; RESP 17; TEMP 36.8; O2SAT 92
[2020-02-14] MEDS: enoxaparin 40 mg/0.4 mL Syringe SUBCUT (21:52)
--- NOTE | 2020-02-14 22:44 | USCV_ITS ---
Rowan Matthews Age: 74 Gender: F : 1945 Exam Date: 02/14/2020 13:26 Ordering Phys: Theresa Yan MD Technologist: Iona Moser Exam Location: [facility] – [place] Indication: New CHF. Estimate EF. Evaluate for RWMA. BP: 113 / 70 HR: 82 Rhythm: Sinus Technical Quality: Fair MEASUREMENTS (Male / Female) Normal Values 2D ECHO LV Diastolic Diameter PLAX 3.3 cm 4.2 - 5.9 / 3.9 - 5.3 cm LV Systolic Diameter PLAX 1.9 cm LV Chamber Size 3.0 cm IVS Diastolic Thickness 2.0 cm 0.6 - 1.0 / 0.6 - 0.9 cm IVS Systolic Thickness 2.4 cm LVPW Diastolic Thickness 1.2 cm 0.6 - 1.0 / 0.6 - 0.9 cm LVPW Systolic Thickness 1.7 cm RV Chamber Size 1.6 cm LVOT Diameter 1.8 cm LV Ejection Fraction 2D Teich 73.3 % LV Ejection Fraction MOD 2C 64.6 % LV Ejection Fraction 2C AL 68.1 % LA Diameter 5.1 cm LA Width 3.1 cm LA Height 5.8 cm RA Width 2.4 cm RA Height 4.7 cm Aorta at Sinotubular Diameter 2.1 cm M-MODE LV Diastolic Diameter MM 4.3 cm 4.2 - 5.9 / 3.9 - 5.3 cm LV Systolic Diameter MM 3.1 cm LV Ejection Fraction MM Teich 54.7 % IVS Diastolic Thickness MM 1.6 cm 0.6 - 1.0 / 0.6 - 0.9 cm IVS Systolic Thickness MM 1.7 cm LVPW Diastolic Thickness MM 1.1 cm 0.6 - 1.0 / 0.6 - 0.9 cm LVPW Systolic Thickness MM 2.2 cm RV Diastolic Diameter MM 1.3 cm Aortic Annulus Diameter 2.9 cm LA Ao Ratio MM 1.8 MV E Point Septal Separation 0.4 cm DOPPLER AV Peak Velocity 339.0 cm/s LVOT Peak Velocity 156.0 cm/s AV Area Cont Eq vti 1.2 cm squared AV Area Cont Eq pk 1.2 cm squared MV Area PHT 3.2 cm squared Mitral E to A Ratio 1.3 MV E' Velocity 7.0 cm/s Mitral E to MV E' Ratio 16.8 Mitral E to LV E' Lateral Ratio 16.5 Mitral E to LV E' Septal Ratio 17.0 TR Peak Velocity 341.0 cm/s TR Peak Gradient 46.6 mmHg TR Mean Velocity 236.9 cm/s TR Mean Gradient 24.4 mmHg TR Velocity Time Integral 87.8 cm TV Peak E Velocity 70.0 cm/s Right Atrial Pressure 8.0 mmHg Pulmonary Artery Systolic Pressu 54.5 mmHg PV Peak Velocity 85.0 cm/s RV Acceleration Time 0.1 s RV Ejection Time 0.3 s RV AcT/ET 0.3 FINDINGS Left Ventricle Normal left ventricular size, systolic function and wall thickness, with no regional wall motion abnormalities.LVH noted Normal left ventricular cavity size. Hyperdynamic left ventricular systolic function. Left ventricular ejection fraction is estimated at 65%. Right Ventricle Normal right ventricular size and systolic function. Right Atrium Normal right atrial size. Left Atrium Moderately increased left atrial size. Mitral Valve No mitral valve stenosis. Posteriorly directed moderate mitral valve regurgitation. Thickened mitral valve. Aortic Valve Mild aortic valve calcification. [id number] aortic valve stenosis. LLUVIA 1.2 cm2 by continuity equation. Peak AV velocity 3.39 m/sec Mild aortic valve regurgitation. Tricuspid Valve No tricuspid valve stenosis. Thickened tricuspid valve. [id number] tricuspid valve regurgitation. Moderate Pulmonary htn with estimated RVSP 54 mmHg Pulmonic Valve Pulmonic valve not well visualized. Pericardium No pericardial or pleural effusion. Aorta CONCLUSIONS Normal LV size and ejection fraction of 65 %. Moderate aortic stenosis Moderate mitral regurgitation with pulmonary HTN Moderate pulmonary HTN with estimated RVSP 54 mmHg Moderate to severe tricuspid regurgitation No pericardial effusion Eloisa Elaine MD (Electronically Signed) Final Date: 14 February 2020 15:46 S
[2020-02-15] VITALS: BP 115/63; PULSE 74; RESP 16; TEMP 36.6; O2SAT 95
[2020-02-15 04:00] VITALS: BP 120/68; PULSE 75; RESP 18; TEMP 36.7; O2SAT 95
[2020-02-15 06:03] LABS: Basophils # 0.1 10^3/uL (0.0-0.1); Eosinophils # 0.1 10^3/uL (0.0-0.8); Eosinophils % 1.7 %; Hemoglobin 11.8 g/dL (11.5-15.3); Lymphocytes # 1.5 10^3/uL (0.8-4.8); Lymphocytes % 20.9 %; Mean Corpuscular HGB Conc 31.9 g/dL (30.0-36.0); Mean Corpuscular Hemoglobin 30.1 pg (28.0-34.0); Mean Corpuscular Volume 94.4 fL (81-99); Mean Platelet Volume 10.3 fL (7.4-10.4); Monocytes # 0.6 10^3/uL (0.2-0.9); Monocytes % 8.3 %; Neutrophils # 4.9 10^3/uL (1.8-7.7); Neutrophils % 67.8 %; Nucleated Red Blood Cells % 0 %; Platelet Count 261 10^3/cmm (130-400); Red Blood Count 3.92 10^6/uL (4.1-5.3); Red Cell Distribution Width 13.3 % (12.1-15.1); White Blood Count 7.1 10^3/uL (4.0-10.0)
[2020-02-15 06:19] LABS: Alanine Aminotransferase 12 U/L (0-33); Albumin Level 2.9 g/dL (3.5-5.2); Alkaline Phosphatase 74 IU/L (35-105); Anion Gap 14.8 (5-19); Aspartate Amino Transferase 21 U/L (0-32); Blood Urea Nitrogen 16 mg/dL (8-23); Calcium 9.6 mg/dL (8.5-10.5); Carbon Dioxide 25 mmol/L (22-29); Chloride 104 mmol/L (98-107); Globulin 3.2 g/dL (1.3-4.6); Glucose 103 mg/dL (65-115); Magnesium 2.1 mg/dL (1.7-2.3); Osmolality Calculated 287 mOsm/kg (285-295); Potassium 3.8 mmol/L (3.5-5.1); Sodium 140 mmol/L (136-145); Total Bilirubin 1.1 mg/dL (0.15-1.2); Total Protein 6.1 g/dL (6.6-8.7)
[2020-02-15 06:32] LABS: Thyroid Stimulating Hormone 4.09 uIU/mL (0.27-4.20)
[2020-02-15 07:30] VITALS: BP 136/73; PULSE 84; RESP 18; TEMP 36.8; O2SAT 95
[2020-02-15] MEDS: acetaminophen 325 mg Tablet 650 MG PO (08:46)
[2020-02-15] MEDS: ezetimibe 10 mg Tablet PO (08:46)
[2020-02-15] MEDS: levothyroxine 112 mcg Tablet PO (08:47)
[2020-02-15] MEDS: levothyroxine 25 mcg Tablet PO (08:47)
[2020-02-15] MEDS: metoprolol succinate ER (24 HR) 50 mg Tablet 75 MG PO (08:47)
[2020-02-15] MEDS: magnesium oxide 400 mg tablet PO (08:47)
[2020-02-15] MEDS: omega-3 fatty acids 1,000 mg Capsule 1000 MG PO ×2 (08:47→18:05)
[2020-02-15] MEDS: FUROsemide 40 mg Tablet PO (08:48)
[2020-02-15] MEDS: aspirin 81 mg EC Tablet PO (08:48)
--- NOTE | 2020-02-15 09:08 | PM.DCS ---
Discharge Providers Date of Admission: 02/13/20 18:30 Date of Discharge: February 15, 2020 Attending Provider at Admission: Jessica York MD Attending Provider at Discharge: Jessica York MD Primary Care Provider: Shanthi Davis APN Diagnoses at Discharge Discharge Diagnosis (1) Hemoptysis: Status: Resolved Problem details: -now resolved -likely secondary to noted bronchopneumonia involving RLL, suspect viral etiology given lack of leukocytosis, pro-calcitonin wnl, afebrile -H/H stable -received dose of Ceftriaxone and Azithromycin in ED, will treat with 4 more days of Azithromycin due to older age, increased productive cough -continue to monitor respiratory status, supplemental oxygen as needed, has 2 L qhs baseline requirement due to nocturnal hypoxemia (2) CHF (congestive heart failure): Status: Acute Problem details: -clinically appears to have acute diastolic CHF exacerbation as evidenced by elevated BNP of 6273, lower extremity edema, evidence of fluid overload on imaging -received total of 40 mg IV Lasix and is on PO Lasix as better compensated clinically -continue daily weights, monitor Is & Os -repeat Echo; EF=65%, moderate aortic stenosis, moderate MR, mild AR, moderate to severe TR, moderate pulmonary HTN (54) -previous echo done in 07/2019 showed an ejection fraction of 73%, G1DD, no RWMA, mild to moderate MR, trace TR, trace SC, moderate pulmonary hypertension (49) -CXR indicates RLL infiltrates, likely fluid vs. infection -VSS, continue to monitor Qualifiers: Heart failure chronicity: acute on chronic Heart failure type: diastolic Qualified Code(s): I50.33 - Acute on chronic diastolic (congestive) heart failure (3) Elevated troponin: Status: Acute Problem details: -noted elevated troponins with significant delta change, could be secondary to demand ischemia from acute CHF exacerbation -Has had cardiac work-up in the past including nuclear stress testing which was negative in July 2019 -Continue aspirin, ezetimibe; has noted statin intolerance -noted lipid panel, A1c wnl -f/u with Dr. Edge -got full dose ASA, continue 81 mg Other Information Additional DC diagnoses/information: -Hypothyroidism; continue levothyroxine, check TSH -Obesity: BMI-33 kg/m2 -Anxiety; continue anxiolytics -HTN; continue oral antihypertensives -moderate pulmonary HTN per Echo -noted to have NSVT previously; s/p Holter monitoring showing baseline sinus rhythm with interventricular conduction delay and intermittent rate related aberrancy, telemetry monitoring -CKD, unknown stage, baseline Cr appears to be 1.2-1.3 Reason for Visit Reason for Visit: Reason For Visit: coughing up blood Hospital Course Hospital Course: Patient was admitted to the medical surgical floor and started on diuresis due to noted clinical evidence of acute CHF exacerbation. She had a repeat echo done with reported ejection fraction of 65%, mild to moderate aortic stenosis, moderate pulmonary hypertension and moderate mitral regurgitation. Findings were discussed with Dr. Elaine and with Dr. Edge whom she follows up with on an outpatient basis. Patient responded well to diuresis and is currently clinically compensated. She has not been on chronic diuretics but will be discharged on a low-dose Lasix. She has a history of statin intolerance hence has not been taking this at home, is to continue Zetia. She was also found to have elevated troponins likely secondary to demand ischemia from acute CHF exacerbation. She has had previous cardiac work-up with negative nuclear stress testing in July 2019. She has had no chest pain or any other symptoms indicative of acute coronary syndrome at this time. She has been hemodynamically stable, maintained on room air, ambulatory and tolerating oral intake without difficulty. She is chronically on 2 L nasal cannula nightly secondary to nocturnal hypoxemia. On imaging was found to have infiltrates and bilateral pneumonitis, suspicious for viral etiology as she has been afebrile, with no leukocytosis, normal procalcitonin. She did receive a dose of ceftriaxone and azithromycin in the ER but this was not continued as as already mentioned it is suspicious for viral pneumonitis; however, she has had increased productive cough, pleurisy so will d/c on Azithromycin x 4 days. I have discussed her echo findings with Dr. Edge will follow up with her on an outpatient basis determine if need for further evaluation. She will need to follow-up with her primary care provider as well. Of note, patient had presented following an episode of hemoptysis at home, this has since resolved and she had no episodes of hemoptysis during her hospital stay, negative influenza/bacterial antigens/Legionella testing, and is likely secondary to pneumonitis. She did not meet criteria for COVID-19 testing per regional testing specialist. Discharge Summary: -Patient to follow up with primary care provider within 1 week -Patient to follow up with Dr. Edge in 2-3 weeks Physical Exam Const: COMMON NORMALS: no apparent distress and oriented x3 GENERAL APPEARANCE: cooperative and comfortable NUTRITIONAL APPEARANCE: overweight ORIENTATION/CONSCIOUSNESS: Yes awake HENMT: COMMON NORMALS: normocephalic, head/scalp atraumatic, hearing grossly normal bilaterally and moist oral mucous membranes HEAD & SCALP: normocephalic and atraumatic Eye: COMMON NORMALS: PERRL, EOMs intact bilaterally and conjunctivae normal CONJUNCTIVA: Yes conjunctivae normal PUPIL: Yes PERRL Neck/C-Spine: COMMON NORMALS: full ROM GENERAL: Yes normal visual inspection and Yes trachea midline Resp: COMMON NORMALS: normal respiratory effort, no retractions, no use of accessory muscles and clear to auscultation bilaterally EFFORT & INSPECTION: Yes able to speak in complete sentences, Yes symmetric chest movement and No tachypneic AUSCULTATION: clear to auscultation bilaterally OTHER: + R sided pleurisy Cardio: COMMON NORMALS: regular rate, regular rhythm, S1 normal heart sound and S2 normal heart sound RATE: regular rate RHYTHM: regular rhythm HEART SOUNDS: S1 normal, S2 normal and murmur systolic GI: COMMON NORMALS: normal to inspection, nondistended, normoactive bowel sounds, soft to palpation and non-tender PALPATION: Yes soft Extremity: COMMON NORMALS: normal to inspection, full ROM and no clubbing, cyanosis or edema; negative for no pedal edema Neuro: COMMON NORMALS: oriented x3, moves all extremities, no focal motor deficits and no sensory deficits noted Psych: COMMON NORMALS: mental status grossly normal, thought process normal, cooperative, affect normal and speech normal SPEECH: Yes normal speech THOUGHT PROCESS: normal thought process Skin: COMMON NORMALS: no rashes or lesions noted, no jaundice, no petechiae and no mottling GENERAL SKIN EXAM: no rashes or lesions noted Discharge Data Data Completed and Pending: Completed Studies During Hospitalization Category Date Time Status CT angio chest PE protcl [id number] Urge nt Cat Scan 02/13/20 16:06 Completed XR chest 1V [id number] Urgent Exams 02/13/20 14:53 Completed XR chest 1V freddy ble [id number] Routine Exams 02/14/20 08:00 Completed CV echo complete* [id number] Routine Ultrasound 02/14/20 22:44 Completed Pending at discharge Category Date Time Status Blood Culture Sta t Lab 02/13/20 16:28 Results Complete Blood Co unt w/Auto AM LABS Lab 02/16/20 04:00 Ordered Comprehensive Met abolic Panel AM LA BS Lab 02/16/20 04:00 Ordered Magnesium AM LABS Lab 02/16/20 04:00 Ordered Labs from last 24 hours 02/15/20 02/15/20 02/15/20 05:34 05:34 05:34 WBC 7.1 RBC 3.92 L Hgb 11.8 Hct 37.0 MCV 94.4 MCH 30.1 MCHC 31.9 RDW 13.3 Plt Count 261 MPV 10.3 Neut % (Auto) 67.8 Lymph % (Auto) 20.9 [place] % (Auto) 8.3 Eos % (Auto) 1.7 Baso % (Auto) 1.0 Neut # (Auto) 4.9 Lymph # (Auto) 1.5 [place] # (Auto) 0.6 Eos # (Auto) 0.1 Baso # (Auto) 0.1 Nucleated RBC % (a uto) 0 Nucleated RBCs # 0.0 Sodium 140 Potassium 3.8 Chloride 104 Carbon Dioxide 25 Anion Gap 14.8 BUN 16 Creatinine 1.4 H Glucose 103 Calculated Osmolal ity 287 Calcium 9.6 Magnesium 2.1 Total Bilirubin 1.1 AST 21 ALT 12 Alkaline Phosphata se 74 Total Protein 6.1 L Albumin 2.9 L Globulin 3.2 TSH 4.09 Vitals: Last Vital Signs Temp 98.2 F 02/15/20 07:30 Pulse 84 02/15/20 07:30 Resp 18 02/15/20 07:30 BP 136/73 02/15/20 07:30 Pulse Ox 95 02/15/20 07:30 Discharge Plan Discharge Patient Disposition: Home, Self-Care Condition: Stable Prescriptions: New furosemide 40 mg Tablet 40 mg PO DAILY 30 Days Qty: 30 RF: 0 tramadol 50 mg Tablet 50 mg PO Q4H PRN (Reason: Moderate Pain) Qty: 30 RF: 0 azithromycin 250 mg tablet 250 mg PO DAILY 4 Days Qty: 4 RF: 0 Continued alprazolam 0.25 mg tablet 0.25 mg PO DAILY RF: 0 aspirin [Adult Low Dose Aspirin] 81 mg tablet,delayed release (DR/EC) 81 mg PO DAILY RF: 0 biotin 1 mg capsule 1 mg PO DAILY RF: 0 All Day Allergy (cetirizine) 10 mg capsule 10 mg PO DAILY RF: 0 fluticasone propionate [Flonase Allergy Relief] 50 mcg/actuation spray,suspension 1 spray INTRANASAL BID PRN (Reason: ALLERGIES) RF: 0 levothyroxine 137 mcg capsule 137 mcg PO DAILY RF: 0 magnesium oxide 400 mg magnesium capsule 400 mg PO DAILY RF: 0 metoprolol succinate 50 mg tablet extended release 24 hr 75 mg PO DAILY RF: 0 multivitamin Tablet 1 tab PO DAILY RF: 0 nitroglycerin 0.4 mg tablet, sublingual 0.4 mg SUBLINGUAL Q5M PRN (Reason: CHEST PAINS) RF: 0 olmesartan 5 mg tablet 5 mg PO DAILY RF: 0 omega-3 fatty acids 1,000 mg capsule 1,000 mg PO BID RF: 0 potassium gluconate 595 mg (99 mg) tablet 595 mg PO DAILY RF: 0 ezetimibe [Zetia] 10 mg tablet 10 mg PO DAILY RF: 0 Discharge Orders: Discharge Order (Routine); Ordered 02/16/20 Ordered By: Jessica York Referrals: Shanthi Davis APN [Primary Care Provider] - 4-7 days (Please call Tuesday to set up a Post hospital discharge follow up. Treated for acute diastolic CHF exacerbation. ) Sharri Edge MD [Physician] - 2 weeks (Please call Tuesday to set up a Post hospital discharge follow up. Found to have acute diastolic CHF exacerbation, Echo with noted moderate pulmonary HTN, mild-moderate , moderate MR.) Discharge Diet: Cardiac Discharge Activity: Resume usual activity Discharge Attestations Time Spent in Discharge Care*: greater than 30 min Specific Discharge Activities: Specific discharge activities: educating patient, discussing with pcp/other providers, discussing with immigration case worker/social workers/dc planners, documenting/other paperwork and evaluating patient/reviewing data Status at Discharge: Cognitive status at discharge: cognitively intact, Behavioral status at discharge: cooperative, Functional status at discharge: independent ambulation Overall status at discharge: patient is back to baseline Quality Metrics Clinical Quality Measures During this hospital stay, did patient experience: None Coding Level of Care Code Acute Database Marketing Specialist for [facility] Fwd Exam Comprehensive Diagnoses Hemoptysis R04.2 CHF (congestive heart failure) I50.33 Heart failure chronicity: acute on chronic Heart failure type: diastolic Elevated troponin R79.89
[2020-02-15] MEDS: lidocaine 5% Patch 1 PATCH TOPICAL (10:43)
[2020-02-15 11:18] VITALS: BP 113/68; PULSE 73; TEMP 36.6; O2SAT 93
--- NOTE | 2020-02-15 12:00 | PC.CHAP ---
Pastoral Care Encounter/Spiritual Assessment Type of Contact [] Declined origination specialist visit [] Patient/Family/Request visit [] Outpatient visit [] Follow-up visit [] Physician referral [] Code/Alert [x] Routine visit [] Staff referral [] Actively dying [] Patient sleeping [] Family support [] [] Out of room [] Palliative care [] [x] Receiving care in room [] Pre-surgical visit [] Trauma [] Long length of stay [] ICU visit [] Other: Relational/Emotional Strength [x] Patient feels connected with others/family/visitors/staff [] Distress [] Loneliness/isolation [] Abandonment Spirituality of Patient [x] Person of Cinthia [] Attends Pentecostal of their [place] [x] Believes in Prayer [] Reads Bible or Restorationist materials [] There are Spiritual issues to be addressed [place] [employer] Interventions [x] Prayer [x] Active listening [x] Non-anxious presence [x] Spiritual/emotional support [] Crisis/trauma care [x] Spiritual counseling [] Bereavement support [] Provided bereavement packet [] Provided Bible/devotional materials [] Provided toy/stuffed animal, coloring book to patient or family member [] Provided Communion [] Anointing/[place] [] Salvation [x] Completed spiritual assessment [] Other: Impact on Illness or Injury [] Angry [] Fearful [] Anxious [] Often cries [] Exhaustion [] Unable to work [] Unable to attend restorationism [] Unable to walk/stand [] Unable to read [] Unable to drive [] Unable to eat/drink [] Unable to sleep [] Unable to be with family [] Patient intubated [] Other: Summary Infection in [place], feeling better, looking forward to going home, knows what need to be done, good attitude Time spent with patient 10 mins X
[2020-02-15] MEDS: TRAMadol 50 mg Tablet PO ×2 (14:32→22:02)
[2020-02-15 16:00] VITALS: BP 115/74; PULSE 72; RESP 18; TEMP 36.7; O2SAT 93
--- NOTE | 2020-02-15 19:37 | P.PN_ITS ---
Subjective Subjective: Interval history: Patient seen and examined, in bed, uncomfortable due to pain on R side, aggravated by deep inspiration, movement, coughing. Requesting pain meds. Would like to hold off on going home until pain is more consistently controlled. Remains on RA, VSS. Had 600 mL urine output overnight. Medications: Reviewed: Yes Medication Review Details: Active Medications Generic Name Dose Route Start Last Admin Trade Name Freq PRN Reason Stop Dose Admin Acetaminophen 650 mg 02/13/20 22:25 02/15/20 08:46 Tylenol PO 650 mg Q6H PRN Administration Mild/Mod Pain Or Temp >/= 101 Alprazolam 0.25 mg 02/14/20 09:00 02/15/20 10:33 Xanax PO Not Given DAILY TJ Aspirin 81 mg 02/14/20 09:00 02/15/20 08:48 Aspirin Ec PO 81 mg DAILY TJ Administration Benzonatate 100 mg 02/13/20 22:42 Tessalon Pearls PO TID PRN COUGH Ezetimibe 10 mg 02/14/20 09:00 02/15/20 08:46 Zetia PO 10 mg DAILY TJ Administration Enoxaparin Sodium 40 mg 02/13/20 22:45 02/14/20 21:52 Lovenox SUBCUT 40 mg Q24H TJ Administration Fluticasone Propio mirta 1 spray 02/13/20 22:42 Flonase INTRANASAL BID PRN ALLERGIES Furosemide 40 mg 02/15/20 08:00 02/15/20 08:48 Lasix PO 40 mg DAILY@0800 TJ Administration Guaifenesin/Dextro methorphan 5 ml 02/13/20 22:42 Robitussin Dm Or al Liq PO Q4H PRN COUGH Levothyroxine Sodi um 25 mcg 02/14/20 09:00 02/15/20 08:47 Synthroid PO 25 mcg DAILY TJ Administration Levothyroxine Sodi um 112 mcg 02/14/20 09:00 02/15/20 08:47 Synthroid PO 112 mcg DAILY TJ Administration Lidocaine 1 patch 02/15/20 09:30 02/15/20 10:43 Lidoderm 5% Patc h TOPICAL 1 patch [id number] TJ Administration Magnesium Oxide 400 mg 02/14/20 09:00 02/15/20 08:47 Magox PO 400 mg DAILY TJ Administration Metoprolol Succina te 75 mg 02/14/20 09:00 02/15/20 08:47 Toprol Xl PO 75 mg DAILY TJ Administration Nitroglycerin 0.4 mg 02/13/20 22:42 Nitrostat SUBLINGUAL Q5M PRN CHEST PAINS Ondansetron HCl 4 mg 02/13/20 22:25 Zofran IVP Q8H PRN vomiting, or N/V if npo Tramadol HCl 50 mg 02/15/20 09:32 02/15/20 14:32 Ultram PO 50 mg Q4H PRN Administration MODERATE PAIN codeine Allergy (Unknown, Verified 12/04/19 22:51) Unknown Penicillins Allergy (Unknown, Verified 12/04/19 22:51) Unknown Tetracyclines Allergy (Unknown, Verified 12/04/19 22:51) Unknown Vitals/I&O/Wt Last Vital Signs Temp 98.0 F 02/15/20 16:00 Pulse 72 02/15/20 16:00 Resp 18 02/15/20 16:00 BP 115/74 02/15/20 16:00 Pulse Ox 93 02/15/20 16:00 02/15/20 02/15/20 02/15/20 06:59 14:59 22:59 Intake Total 720 / 720 Output Total 600 / 2300 1700 / 1700 Balance -600 / -760 -980 / -980 Weight last 48 hrs Weight 88.451 kg Weight 88.536 kg Weight 89.403 kg Physical Exam Const: COMMON NORMALS: no apparent distress and oriented x3 GENERAL APPEARANCE: cooperative and comfortable NUTRITIONAL APPEARANCE: overweight ORIENTATION/CONSCIOUSNESS: Yes awake HENMT: COMMON NORMALS: normocephalic, head/scalp atraumatic, hearing grossly normal bilaterally and moist oral mucous membranes HEAD & SCALP: norm ocephalic and atraumatic Eye: COMMON NORMALS: PERRL, EOMs intact bilaterally and conjunctivae normal CONJUNCTIVA: Yes conjunctivae normal PUPIL: Yes PERRL Neck/C-Spine: COMMON NORMALS: full ROM GENERAL: Yes normal visual inspection and Yes trachea midline Chest: OTHER: -tenderness to palpation of R posterior rib cage Resp: COMMON NORMALS: normal respiratory effort, no retractions, no use of accessory muscles and clear to auscultation bilaterally EFFORT & INSPECTION: Yes able to speak in complete sentences, Yes symmetric chest movement and No tachypneic AUSCULTATION: clear to auscultation bilaterally Cardio: COMMON NORMALS: regular rate, regular rhythm, S1 normal heart sound and S2 normal heart sound RATE: regular rate RHYTHM: regular rhythm HEART SOUNDS: S1 normal, S2 normal and murmur systolic GI: COMMON NORMALS: normal to inspection, nondistended, normoactive bowel sounds, soft to palpation and non-tender PALPATION: Yes soft Extremity: COMMON NORMALS: normal to inspection, full ROM and no clubbing, cyanosis or edema; negative for no pedal edema Neuro: COMMON NORMALS: oriented x3, moves all extremities, no focal motor deficits and no sensory deficits noted Psych: COMMON NORMALS: mental status grossly normal, thought process normal, cooperative, affect normal and speech normal SPEECH: Yes normal speech THOUGHT PROCESS: normal thought process Skin: COMMON NORMALS: no rashes or lesions noted, no jaundice, no petechiae and no mottling GENERAL SKIN EXAM: no rashes or lesions noted Data : 02/15/20 05:34 02/15/20 05:34 Micro: Microbiology 02/13/20 16:28 Blood Culture - Preliminary Blood NEGATIVE TO DATE 02/13/20 15:50 Blood Culture - Preliminary Blood NEGATIVE TO DATE A&P Assessment and plan (1) Hemoptysis: -now resolved -likely secondary to noted bronchopneumonia involving RLL, suspect viral etiology given lack of leukocytosis, pro-calcitonin wnl, afebrile -H/H stable -received dose of Ceftriaxone and Azithromycin in ED, hold off on further abx at this time unless clinical change/suspicion for bacterial infection -continue to monitor respiratory status, supplemental oxygen as needed, has 2 L qhs baseline requirement due to nocturnal hypoxemia -clinically appears to have pleurisy; pain control as needed Status: Resolved Code(s): R04.2 - Hemoptysis (2) CHF (congestive heart failure): -clinically appears to have acute diastolic CHF exacerbation as evidenced by elevated BNP of 6273, lower extremity edema, evidence of fluid overload on imaging -received total of 40 mg IV Lasix last night, has diuresed about 1 L so far -continue daily weights, monitor Is & Os -repeat Echo; EF=65%, moderate aortic stenosis, moderate MR, mild AR, moderate to severe TR, moderate pulmonary HTN (54) -previous echo done in 07/2019 showed an ejection fraction of 73%, G1DD, no RWMA, mild to moderate MR, trace TR, trace AK, moderate pulmonary hypertension (49) -CXR indicates RLL infiltrates, likely fluid vs. infection -VSS, continue to monitor Status: Acute Qualifiers: Heart failure type: diastolic Heart failure chronicity: acute on chronic Qualified Code(s): I50.33 - Acute on chronic diastolic (congestive) heart failure Code(s): I50.9 - Heart failure, unspecified (3) Elevated troponin: -noted elevated troponins with significant delta change, could be secondary to demand ischemia from acute CHF exacerbation -Has had cardiac work-up in the past including nuclear stress testing which was negative in July 2019 -Continue aspirin, ezetimibe; has noted statin intolerance -Follow-up lipid panel, A1c -f/u with Dr. Edge -got full dose ASA, continue 81 mg Status: Acute Code(s): R79.89 - Other specified abnormal findings of blood chemistry Additional A&P Information -Hypothyroidism; continue levothyroxine, check TSH -Obesity: BMI-33 kg/m2 -Anxiety; continue anxiolytics -HTN; continue oral antihypertensives -moderate pulmonary HTN per Echo -noted to have NSVT previously; s/p Holter monitoring showing baseline sinus rhythm with interventricular conduction delay and intermittent rate related aberrancy, telemetry monitoring -CKD, unknown stage, baseline Cr appears to be 1.2-1.3 -cardiac diet as tolerated -DVT ppx with Lovenox -Dispo: home -Code status: FULL code Attestations Medical Necessity Statement*: Patient requires hospitalization for pain control given pleurisy secondary to underlying viral pneumonitis. Time Spent in Patient Care: Greater than 35 minutes (>than 50% of time spent in counselling and/or direct pt care on unit) . 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
[2020-02-15 20:00] VITALS: BP 128/78; PULSE 84; RESP 18; TEMP 36.6; O2SAT 96
[2020-02-15] MEDS: enoxaparin 40 mg/0.4 mL Syringe SUBCUT (21:57)
[2020-02-16] VITALS: BP 111/68; PULSE 73; RESP 18; TEMP 36.6; O2SAT 98
[2020-02-16 04:00] VITALS: BP 109/69; PULSE 77; RESP 18; TEMP 36.9; O2SAT 96
[2020-02-16 06:11] LABS: Basophils # 0.1 10^3/uL (0.0-0.1); Basophils % 1.3 %; Eosinophils # 0.3 10^3/uL (0.0-0.8); Eosinophils % 3.9 %; Hematocrit 36.9 % (37.0-47.0); Hemoglobin 11.6 g/dL (11.5-15.3); Lymphocytes # 1.9 10^3/uL (0.8-4.8); Lymphocytes % 30.4 %; Mean Corpuscular HGB Conc 31.4 g/dL (30.0-36.0); Mean Corpuscular Volume 95.3 fL (81-99); Mean Platelet Volume 10.1 fL (7.4-10.4); Monocytes # 0.7 10^3/uL (0.2-0.9); Monocytes % 10.2 %; Neutrophils # 3.4 10^3/uL (1.8-7.7); Nucleated Red Blood Cells % 0 %; Platelet Count 275 10^3/cmm (130-400); Red Blood Count 3.87 10^6/uL (4.1-5.3); Red Cell Distribution Width 13.5 % (12.1-15.1); White Blood Count 6.4 10^3/uL (4.0-10.0)
[2020-02-16 06:32] LABS: Alanine Aminotransferase 9 U/L (0-33); Albumin Level 2.9 g/dL (3.5-5.2); Alkaline Phosphatase 75 IU/L (35-105); Anion Gap 8.9 (5-19); Aspartate Amino Transferase 18 U/L (0-32); Blood Urea Nitrogen 15 mg/dL (8-23); Calcium 9.3 mg/dL (8.5-10.5); Carbon Dioxide 31 mmol/L (22-29); Chloride 101 mmol/L (98-107); Globulin 3.5 g/dL (1.3-4.6); Glucose 103 mg/dL (65-115); Osmolality Calculated 281 mOsm/kg (285-295); Potassium 3.9 mmol/L (3.5-5.1); Sodium 137 mmol/L (136-145); Total Bilirubin 1.1 mg/dL (0.15-1.2); Total Protein 6.4 g/dL (6.6-8.7)
[2020-02-16 07:57] VITALS: BP 124/76; PULSE 77; RESP 17; TEMP 36.9; O2SAT 95
[2020-02-16 08:00] VITALS: BP 124/76; PULSE 77; RESP 17; TEMP 36.9; O2SAT 95
[2020-02-16] MEDS: FUROsemide 40 mg Tablet PO (09:11)
[2020-02-16] MEDS: levothyroxine 112 mcg Tablet PO (09:11)
[2020-02-16] MEDS: aspirin 81 mg EC Tablet PO (09:11)
[2020-02-16] MEDS: ezetimibe 10 mg Tablet PO (09:11)
[2020-02-16] MEDS: metoprolol succinate ER (24 HR) 50 mg Tablet 75 MG PO (09:11)
[2020-02-16] MEDS: levothyroxine 25 mcg Tablet PO (09:11)
[2020-02-16] MEDS: magnesium oxide 400 mg tablet PO (09:11)
[2020-02-16] MEDS: omega-3 fatty acids 1,000 mg Capsule 1000 MG PO (09:11)
[2020-02-16] MEDS: lidocaine 5% Patch 1 PATCH TOPICAL (09:12)
[2020-02-16 11:48] VITALS: BP 113/64; PULSE 73; RESP 17; TEMP 37; O2SAT 99
--- NOTE | 2020-02-16 11:56 | PC.SOCIAL ---
* Patient received IM from Medicare. Original is in the chart.
[2020-02-16 14:17] VITALS: BP 113/64; PULSE 73; RESP 17; TEMP 37; O2SAT 99
== END 2020-02-16 14:45 | disposition home or self-care (01) | DRG 204 ==
LOC: ER 19:02 → MEDSURG 19:43
PROVIDERS: Family Medicine; Student in an Organized Health Care Education/Training Program; Admitting Provider Family Medicine; Emergency Provider Emergency Medicine; Family Provider Nurse Practitioner; PCP Nurse Practitioner; Visit Provider Family Medicine
DX: R04.2 Hemoptysis (principal); I50.33 Acute on chronic diastolic (congestive) heart failure; I24.8 Other forms of acute ischemic heart disease; E87.2 Acidosis; I13.0 Hypertensive heart and chronic kidney disease with heart failure and stage 1 through stage 4 chronic kidney disease, or unspecified chronic kidney disease; R79.89 Other specified abnormal findings of blood chemistry; I27.20 Pulmonary hypertension, unspecified; I35.0 Nonrheumatic aortic (valve) stenosis; I34.0 Nonrheumatic mitral (valve) insufficiency; E78.2 Mixed hyperlipidemia; I44.7 Left bundle-branch block, unspecified; E66.9 Obesity, unspecified; F41.9 Anxiety disorder, unspecified; N18.9 Chronic kidney disease, unspecified; E03.9 Hypothyroidism, unspecified; Z68.33 Body mass index [BMI] 33.0-33.9, adult; Z79.82 Long term (current) use of aspirin; Z79.890 Hormone replacement therapy; Z79.899 Other long term (current) drug therapy
CPT/HCPCS: 12345; 36415; 71045; 71275; 80053; 83735; 83880; 84145; 84443; 84484; 85025; 85610; 87040; 87804; 93005; 93010; 93306; 96372; 96375; 99283; J0456; J0696; J1650; J1940; J7030; J7050; Q9967

== ENCOUNTER 2020-05-06 12:04 | Inpatient (IN) | payer MEDICARE, SELFPAY ==
[2020-05-06] VITALS (13 sets, daily range): BP systolic 95–146; BP diastolic 59–75; PULSE 75–96; RESP 16–24; TEMP 36.5–37.5; O2SAT 63–98; BMI 27.9
[2020-05-06] MEDS: ondansetron 2 mg/ML SDV 2 mL 4 MG IVP (12:20)
[2020-05-06] MEDS: sodium chloride 0.9% 1,000 ML 999 ML IV (12:20)
--- NOTE | 2020-05-06 12:26 | CT_ITS ---
WS: [id number] CT ABDOMEN AND PELVIS WITH CONTRAST HISTORY: abd pain, RIGHT lower quadrant pain for one day. TECHNIQUE: Imaging performed of the abdomen and pelvis with IV contrast. Single phase imaging of the abdomen. Coronal and sagittal reformats are submitted. All CT scans at [facility] use at least one of these dose optimization techniques: automated exposure control; mA and/or kV adjustment per patient size (includes targeted exams where dose is matched to clinical indication); or iterativ e reconstruction. IV CONTRAST: Visipaque 320; 95 mL IV. Oral contrast: No DLP: 946.85 mGy.cm COMPARISON: 02/13/2020 Lower thorax: Benign granuloma at the RIGHT lung base. Mild scattered groundglass opacifications and bronchial thickening. There is new 3.0 cm RIGHT hilar cystic mass with peripheral enhancement adjacen t to the spine just below the level of the pulmonary vein. Moderate enlargement of the heart chambers . No hiatal hernia. Liver/biliary system: Normal size with no intrahepatic dilatation. Gallbladder: Normal. No gallstones or wall thickening. No pericholecystic fluid. Pancreas: Normal. Spleen: Normal. Adrenal glands: Normal. Right kidney: Normal. Left kidney: Normal size LEFT kidney. Cortical cyst measures 1.5 cm from the inferior kidney. Aorta: Extensive atherosclerosis of aorta. There is diffuse soft tissue stranding within the mesentery and omentum and retroperitoneum. Lymphadenopathy: Small obturator lymph nodes measuring up to 8 mm bilaterally. Free fluid: There is no free fluid throughout the abdomen. GI tract: Abnormal appendix. The appendix is dilated and the wall is hyperemic. There is a small amou nt of soft tissue thickening small amount of fluid adjacent to the appendix. The appendix extends ret rocecal. Mild fecal retention. Numerous diverticula in the descending and sigmoid colon. Abdominal wall: Unremarkable abdominal wall. No hernia. Pelvis: No free fluid. Urinary bladder is minimally distended. Bones: Unremarkable. CT/CT abdomen pelvis w con* [id number] IMPRESSION: 1. Findings consistent with with rupture or impending rupture retrocecal appen jareth. 2. Diffuse soft tissue infiltration throughout the peritoneal cavity and retro peritoneum. Correlate for possible peritonitis. 3. Sigmoid diverticulosis without acute diverticulitis. 4. New small cystic mass in the RIGHT infrahilar region measuring 3.0 cm. May be a cystic lymph node or the residual of a treated infection that was previous ly seen on 02/13/2020. Recommend follow-up CT in 3 months.
--- NOTE | 2020-05-06 12:27 | W.ED.ABDPA2 ---
HPI - Abdominal Pain General: Chief Complaint: Abdominal Pain Stated Complaint: abd pain/c diff positive Time Seen by Provider: 05/06/20 12:08 History of Present Illness: HPI narrative: 77-year-old female comes in complaining of right lower quadrant abdominal pain. She has had this for the last 24 hours. Starting week ago she was treated with oral vancomycin for C. difficile she not had any diarrhea for the last 2 days. She denies dysuria urgency or frequency denies hematochezia melena hematemesis Carkner's no nausea vomiting or diarrhea pain is been persistent in the right lower quadrant and has been progressively worsening. They think she got the C. difficile after she was treated inpatient with IV antibiotics for pneumonia in January. MD elicited complaint: abdominal pain Onset (ago): day(s) Pain Consistency: constant Location: RLQ Severity: moderate Quality: cramping Radiation: none Migration to: no migration Exacerbating factors: nothing Relieving factors: nothing Context: recent antibiotic use Associated Symptoms: Reports anorexia, bloating, GI cramping, nausea and poor appetite; Denies change in bowel habits, change in stool character, chills, coffee ground emesis, constipation, diarrhea, dyspepsia, dysuria, excessive flatus, fever(s), heartburn, hematochezia, hematuria, hematemesis, fecal incontinence, loose stools, melena, syncope and vomiting Review of Systems Const: Denies: fever(s) or chills ENMT: Denies: throat pain, ear or mastoid pain, nasal discharge or nasal congestion Card: Denies: syncope Resp: Denies: dyspnea, productive cough or non-productive cough GI: Reports: nausea, bloating and GI cramping; Denies: vomiting, hematemesis, coffee ground emesis, heartburn, diarrhea, constipation, excessive flatus, fecal incontinence, change in bowel habits, change in stool character, hematochezia or melena : Denies: dysuria or hematuria Skin/Breast: Denies: rash or pruritus [facility] ED PFSH: Medical History (Updated 05/06/20 @ 18:51 by Ray Gauthier MD) ACL (anterior cruciate ligament) tear Anxiety CKD (chronic kidney disease) Hyperlipidemia Hypertension Hypothyroidism LBBB (left bundle branch block) Nocturnal hypoxemia on 2 L NC qhs Pulmonary hypertension Moderate per echo Rotator cuff arthropathy of right shoulder SVT (supraventricular tachycardia) Surgical History (Updated 05/06/20 @ 20:45 by Ray Gauthier MD) History of hysterectomy including cervix History of tonsillectomy S/P laparoscopic appendectomy (~05/06/20) Social History Smoking and tobacco status: never smoked Alcohol intake: never Household members: spouse Marital status: 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 Const: COMMON NORMALS: no acute distress GENERAL APPEARANCE: cooperative and comfortable ORIENTATION/CONSCIOUSNESS: Yes awake, Yes oriented to person, Yes oriented to place and Yes oriented to time HENMT: COMMON NORMALS: normocephalic, atraumatic, hearing grossly normal bilaterally, external ears normal, EAC's normal, TM's normal bilaterally, Normal nasal mucous membranes and turbinates present, moist oral mucous membranes and oropharynx normal HEAD & SCALP: normocephalic and atraumatic NOSE: Normal nasal mucous membranes and turbinates present EXTERNAL EAR: Yes external ears normal EXTERNAL AUDITORY CANAL: EAC's normal TYMPANIC MEMBRANE: TM's normal bilaterally Eye: COMMON NORMALS: Equal, round and reactive pupils present, EOMs intact bilaterally, conjunctivae normal and no scleral icterus CONJUNCTIVA: Yes conjunctivae normal PUPIL: Yes Equal, round and reactive pupils present Neck/C-Spine: COMMON NORMALS: full ROM, no lymphadenopathy, supple and no JVD Lymph: LYMPHATIC: no lymphadenopathy noted and no lymphedema noted Resp: COMMON NORMALS: normal respiratory effort, No retractions, No use of accessory muscles and clear to auscultation bilaterally AUSCULTATION: clear to auscultation bilaterally Cardio: COMMON NORMALS: no JVD, regular rate, regular rhythm and No murmurs present (Cardio) RATE: regular rate RHYTHM: regular rhythm GI: COMMON NORMALS: Soft to palpation and No hepatosplenomegaly present AUSCULTATION: Yes normoactive bowel sounds PALPATION: Yes Soft to palpation, Yes Tenderness to palpation present (GI) Details: RLQ, No Guarding due to palpation present (GI) and Yes No hepatosplenomegaly present Extremity: COMMON NORMALS: normal to inspection, capillary refill normal, no clubbing, cyanosis or edema, no calf tenderness and no pedal edema Neuro: SENSORIUM/ORIENTATION: Yes oriented to person, Yes oriented to place and Yes oriented to time Skin: COMMON NORMALS: no rashes or lesions noted GENERAL SKIN EXAM: no rashes or lesions noted Course Vital Signs: Vital signs: Vital Signs Temperature 98.2 F 05/07/20 10:57 Pulse Rate 77 05/07/20 10:57 Respiratory Rate 18 05/07/20 10:57 Blood Pressure 93/53 05/07/20 10:57 Pulse Oximetry 92 05/07/20 10:57 MDM - Abdominal Pain MDM Narrative: Medical decision making narrative: CT shows questionable ruptured appendicitis with some mesenteric stranding and some fluid in the pelvis. Discussed with Dr. Gauthier. We will put her on Cipro and Flagyl and admit due to her other medical issues we will go ahead and admit to the hospitalist consult Dr. Gauthier I have discussed with both. Lab Data: Labs: Lab Results 05/06/20 05/06/20 05/06/20 Range/Units 12:23 12:23 12:50 WBC 11.1 H (4.0-10.0) 10^3/ uL RBC 5.05 (4.1-5.3) 10^6/u L Hgb 15.0 (11.5-15.3) g/dL Hct 46.1 (37.0-47.0) % MCV 91.3 (81-99) fL MCH 29.7 (28.0-34.0) pg MCHC 32.5 (30.0-36.0) g/dL RDW 12.5 (12.1-15.1) % Plt Count 379 (130-400) 10^3/c mm MPV 10.2 (7.4-10.4) fL Neut % (Auto) 83.6 % Lymph % (Auto) 10.6 % [place] % (Auto) 5.0 % Eos % (Auto) 0.0 % Baso % (Auto) 0.4 % Neut # (Auto) 9.3 H (1.8-7.7) 10^3/u L Lymph # (Auto) 1.2 (0.8-4.8) 10^3/u L [place] # (Auto) 0.6 (0.2-0.9) 10^3/u L Eos # (Auto) 0.0 (0.0-0.8) 10^3/u L Baso # (Auto) 0.1 (0.0-0.1) 10^3/u L Nucleated RBC % (a uto) 0 % Nucleated RBCs # 0.0 /100WBC Sodium 135 L (136-145) mmol/L Potassium 3.7 (3.5-5.1) mmol/L Chloride 97 L (98-107) mmol/L Carbon Dioxide 24 (22-29) mmol/L Anion Gap 17.7 (5-19) BUN 18 (8-23) mg/dL Creatinine 1.5 H (0.5-0.9) mg/dL Glucose 136 H (65-115) mg/dL Calculated Osmolal ity 279 L (285-295) mOsm/k g Lactate 1.3 (0.5-2.2) mmol/L Calcium 10.3 (8.5-10.5) mg/dL Total Bilirubin 0.9 (0.15-1.2) mg/dL AST 27 (0-32) U/L ALT 10 (0-33) U/L Alkaline Phosphata se 87 (35-105) IU/L Total Protein 7.0 (6.6-8.7) g/dL Albumin 3.5 (3.5-5.2) g/dL Globulin 3.5 (1.3-4.6) g/dL Lipase 11 L (13-60) U/L Urine Color (Yellow) Urine Appearance (CLEAR) Urine pH (5-7) Ur Specific Gravit y (1.005-1.030) Urine Protein (Negative) Urine Glucose (UA) (Normal) Urine Ketones (Negative) Urine Blood (Negative) Urine Nitrate (Negative) Urine Bilirubin (NEGATIVE) Urine Urobilinogen (Negative) mg/dL Ur Leukocyte Mona ase (Negative) Urine RBC (0-2) /hpf Urine WBC (0-5) /hpf Ur Squamous Epith Cells (0-5) Urine Bacteria (NONE) Hyaline Casts 05/06/20 Range/Units 14:28 WBC (4.0-10.0) 10^3/ uL RBC (4.1-5.3) 10^6/u L Hgb (11.5-15.3) g/dL Hct (37.0-47.0) % MCV (81-99) fL MCH (28.0-34.0) pg MCHC (30.0-36.0) g/dL RDW (12.1-15.1) % Plt Count (130-400) 10^3/c mm MPV (7.4-10.4) fL Neut % (Auto) % Lymph % (Auto) % [place] % (Auto) % Eos % (Auto) % Baso % (Auto) % Neut # (Auto) (1.8-7.7) 10^3/u L Lymph # (Auto) (0.8-4.8) 10^3/u L [place] # (Auto) (0.2-0.9) 10^3/u L Eos # (Auto) (0.0-0.8) 10^3/u L Baso # (Auto) (0.0-0.1) 10^3/u L Nucleated RBC % (a uto) % Nucleated RBCs # /100WBC Sodium (136-145) mmol/L Potassium (3.5-5.1) mmol/L Chloride (98-107) mmol/L Carbon Dioxide (22-29) mmol/L Anion Gap (5-19) BUN (8-23) mg/dL Creatinine (0.5-0.9) mg/dL Glucose (65-115) mg/dL Calculated Osmolal ity (285-295) mOsm/k g Lactate (0.5-2.2) mmol/L Calcium (8.5-10.5) mg/dL Total Bilirubin (0.15-1.2) mg/dL AST (0-32) U/L ALT (0-33) U/L Alkaline Phosphata se (35-105) IU/L Total Protein (6.6-8.7) g/dL Albumin (3.5-5.2) g/dL Globulin (1.3-4.6) g/dL Lipase (13-60) U/L Urine Color Yellow (Yellow) Urine Appearance Hazy A (CLEAR) Urine pH 5 (5-7) Ur Specific Gravit y 1.020 (1.005-1.030) Urine Protein Neg (Negative) Urine Glucose (UA) Norm (Normal) Urine Ketones 1+ H (Negative) Urine Blood Neg (Negative) Urine Nitrate Negative (Negative) Urine Bilirubin 1+ H (NEGATIVE) Urine Urobilinogen Norm (Negative) mg/dL Ur Leukocyte Mona ase 2+ H (Negative) Urine RBC 0-4 H (0-2) /hpf Urine WBC 25-40 H (0-5) /hpf Ur Squamous Epith Cells 0-4 H (0-5) Urine Bacteria 2+ H (NONE) Hyaline Casts 0-4 H Discharge Plan Discharge Patient Disposition: Admitted As Inpatient Admit Provider: Jessica York Discharge Date/Time: 05/06/20 15:29 Coding Level of Care Code ED Intervention Specialist for Chg Fwd Exam Comprehensive
[2020-05-06 12:50] LABS: Basophils # 0.1 10^3/uL (0.0-0.1); Basophils % 0.4 %; Hematocrit 46.1 % (37.0-47.0); Lymphocytes # 1.2 10^3/uL (0.8-4.8); Lymphocytes % 10.6 %; Mean Corpuscular HGB Conc 32.5 g/dL (30.0-36.0); Mean Corpuscular Hemoglobin 29.7 pg (28.0-34.0); Mean Corpuscular Volume 91.3 fL (81-99); Mean Platelet Volume 10.2 fL (7.4-10.4); Monocytes # 0.6 10^3/uL (0.2-0.9); Neutrophils # 9.3 10^3/uL (1.8-7.7); Neutrophils % 83.6 %; Nucleated Red Blood Cells % 0 %; Platelet Count 379 10^3/cmm (130-400); Red Blood Count 5.05 10^6/uL (4.1-5.3); Red Cell Distribution Width 12.5 % (12.1-15.1); White Blood Count 11.1 10^3/uL (4.0-10.0)
[2020-05-06 13:24] LABS: Lactate (Lactic Acid level) 1.3 mmol/L (0.5-2.2)
[2020-05-06 13:32] LABS: Alanine Aminotransferase 10 U/L (0-33); Albumin Level 3.5 g/dL (3.5-5.2); Alkaline Phosphatase 87 IU/L (35-105); Anion Gap 17.7 (5-19); Aspartate Amino Transferase 27 U/L (0-32); Blood Urea Nitrogen 18 mg/dL (8-23); Calcium 10.3 mg/dL (8.5-10.5); Carbon Dioxide 24 mmol/L (22-29); Chloride 97 mmol/L (98-107); Globulin 3.5 g/dL (1.3-4.6); Glucose 136 mg/dL (65-115); Lipase 11 U/L (13-60); Osmolality Calculated 279 mOsm/kg (285-295); Potassium 3.7 mmol/L (3.5-5.1); Sodium 135 mmol/L (136-145); Total Bilirubin 0.9 mg/dL (0.15-1.2)
[2020-05-06] MEDS: iodixanol 320 mg/mL 100mL Btl IV (13:47)
--- NOTE | 2020-05-06 14:15 | XRR_ITS ---
PROCEDURE INFORMATION: Exam: XR Chest, 1 View Exam date and time: 05/06/2020 2:37 PM Age: 74 years old Clinical indication: Cough and dyspnea; Additional info: Dyspnea/cough TECHNIQUE: Imaging protocol: XR of the chest Views: 1 view. COMPARISON: CT angio chest PE prot [id number] 02/13/2020 4:38 PM FINDINGS: Lungs: Unremarkable. No consolidation. Pleural space: Unremarkable. No pleural effusion. No pneumothorax. Heart/Mediastinum: Unremarkable. No cardiomegaly. Bones/joints: Unremarkable. XR/XR chest 1V portable [id number] IMPRESSION: No acute findings.
[2020-05-06 14:55] LABS: Add Urine Microscopic? YES; Bilirubin Urine 1+ (NEGATIVE); Blood Urine Neg (Negative); Glucose Urine UA Norm (Normal); Ketones Urine 1+ (Negative); Leukocyte Esterase Urine 2+ (Negative); Nitrate Urine Negative (Negative); Protein Urine Neg (Negative); Urine Appearance Hazy (CLEAR); Urine Color Yellow (Yellow); Urobilinogen Urine Norm (Negative); pH Urine 5 (5-7)
[2020-05-06 15:04] LABS: Add Urine Culture? Yes; Bacteria Urine 2+; Hyaline Casts Urine 0-4; RBC Urine 0-4 /hpf (0-2); Squamous Epithelial Cell Urine 0-4 (0-5); WBC Urine 25-40 /hpf (0-5)
[2020-05-06] MEDS: ciprofloxacin 400 MG/200 ML PREMIX 200 MG IV ×2 (15:20→21:27)
--- NOTE | 2020-05-06 15:59 | PM.HP ---
Providers/Chief Complaint Admitting Physician: Jessica York MD Primary Care Provider: Shanthi Davis APN Chief Complaint: abd pain/c diff positive History of Present Illness Rowan Matthews is a 74 year old female with PMHx of Chronic diastolic CHF, Moderate pulmonary HTN with nocturnal hypoxemia, HTN, Hypothyroidism; presents from home for evaluation of acute onset of right lower quadrant pain since earlier this morning when she awakened to go to the bathroom. While sitting on the commode she had a sudden sharp pain in the right lower quadrant, non-radiating, with some nausea, no vomiting. She has been taking vancomycin since 05/02/2020 for treatment of C. difficile enteritis. She reports almost complete resolution of her symptoms particularly in terms of diarrhea, has not had any loose or watery stools since 05/04/2020. She denies having any fever/chills, pain in any other part of her abdomen, blood in her urine or her stool. She is well-known to me from previous admission in January of this year when she had presented with hemoptysis secondary to pneumonia. 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 When her symptoms began this morning she called her doctor's office and further recommendation presented to the ER for evaluation. She took her last dose of vancomycin earlier this morning around 1030. Her appetite has been quite mediocre since just prior to being diagnosed with C. difficile enteritis. As such she has lost quite a bit of weight, per her date of admission on 02/14 compared to today's weight she is lost approximately 15 kg. She uses supplemental oxygen at nighttime secondary to nocturnal hypoxemia, baseline requirement of 2 L. She follows up with cardiology secondary to her history of CHF, pulmonary hypertension and hypertension. She denies any chest pain, increased shortness of breath, lower extremity swelling. Upon evaluation in the ER today she was noted to have leukocytosis with a white count of 11.1, BUN of 18, creatinine 1.5, otherwise unremarkable chemistry, normal LFTs, lipase of 11, lactate of 1.3. She is hemodynamically stable and afebrile. Urinalysis is indicative of infection. Chest x-ray per my review appears to be unremarkable and CT scan of the abdomen and pelvis with contrast is reported as diffuse soft tissue infiltration throughout the peritoneal cavity and retroperitoneum and dilated appendix with hyperemic wall concerning for rupture versus impending rupture. Surgery has been consulted and Dr. Gauthier will evaluate the patient. She has already received a dose of ciprofloxacin and metronidazole. She has a documented PCN allergy so we will likely continue this regimen for prophylaxis. She has received some IV fluid hydration which will be continued and she will be kept NPO pending surgical evaluation. She will need admission for further IV fluid hydration, IV antibiotics and further management of potential appendicitis. Review of Systems Const: Reports: change in appetite (decreased appetite) and fatigue; Denies: fever(s) or chills Eyes: Denies: change in vision ENMT: Denies: odynophagia Card: Denies: chest pain, swelling of feet/ankles or lightheadedness Resp: Denies: dyspnea GI: Reports: abdominal pain (RLQ) and diarrhea (previously, resolved x 2 days); Denies: nausea, vomiting, hematemesis or hematochezia : Denies: difficulty voiding or dysuria Musc: Denies: back pain Skin/Breast: Denies: rash Neuro: Denies: numbness in extremities or weakness in extremities Psych: Denies: anxiety Medications/Allergies Home Medications Medication Instructions Recorded Confirmed Last Taken Type alprazolam 0.25 mg tablet 0.25 mg PO DAILY tab 12/04/19 05/06/20 02/13/20 History aspirin 81 mg tablet,delayed 81 mg PO DAILY tab 12/04/19 05/06/20 05/05/20 History release biotin 1 mg capsule 1 mg PO DAILY cap 12/04/19 05/06/20 05/06/20 History cetirizine 10 mg capsule 10 mg PO DAILY cap 12/04/19 05/06/20 05/06/20 History ezetimibe 10 mg tablet 10 mg PO DAILY tab 12/04/19 05/06/20 02/13/20 History fluticasone propionate 50 1 spray INTRANASAL BID PRN 12/04/19 05/06/20 Unknown History mcg/actuation nasal spray,suspension levothyroxine 137 mcg capsule 137 mcg PO DAILY cap 12/04/19 05/06/20 05/06/20 History metoprolol succinate 50 mg 50 mg PO DAILY tab 12/04/19 05/06/20 05/05/20 History tablet,extended release 24 hr multivitamin 1 tab PO DAILY tab 12/04/19 05/06/20 05/06/20 History nitroglycerin 0.4 mg sublingual 0.4 mg SUBLINGUAL Q5M PRN 12/04/19 05/06/20 Unknown History tablet omega-3 fatty acids 1,000 mg 1,000 mg PO BID 12/04/19 05/06/20 05/06/20 History capsule potassium gluconate 595 mg (99 mg) 595 mg PO DAILY tab 12/04/19 05/06/20 05/06/20 History tablet tramadol 50 mg PO Q4H PRN #30 tab 02/16/20 05/06/20 Unknown Rx chlorthalidone 25 mg PO DAILY 05/06/20 05/06/20 05/06/20 History melatonin 10 mg PO DAILY 05/06/20 05/06/20 05/05/20 History montelukast 10 mg PO DAILY 05/06/20 05/06/20 Unknown History vancomycin 125 mg PO QID 05/06/20 05/06/20 05/06/20 History Allergies Allergy/AdvReac Type Severity Reaction Status Date / Time codeine Allergy Unknown Unknown Verified 05/06/20 12:10 Penicillins Allergy Unknown Unknown Verified 05/06/20 12:10 Tetracyclines Allergy Unknown Unknown Verified 05/06/20 12:10 PFSH Acute PFSH: Medical History (Updated 05/06/20 @ 16:27 by Jesisca York MD) ACL (anterior cruciate ligament) tear Anxiety Chest pain CKD (chronic kidney disease) Hyperlipidemia Hypertension Hypothyroidism LBBB (left bundle branch block) Nocturnal hypoxemia on 2 L NC qhs Pulmonary hypertension Moderate per echo Rotator cuff arthropathy of right shoulder SVT (supraventricular tachycardia) Surgical History History of hysterectomy including cervix History of tonsillectomy Social History (Updated 05/06/20 @ 16:11 by Jessica York MD) Smoking and tobacco status: never smoked Alcohol intake: never Household members: spouse Marital status: 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 Temp 98.5 F 05/06/20 15:51 Pulse 85 05/06/20 15:51 Resp 20 H 05/06/20 15:51 BP 113/71 05/06/20 15:51 Pulse Ox 95 05/06/20 15:51 05/06/20 05/06/20 05/06/20 06:59 14:59 22:59 Intake Total 416.25 / 416.25 Balance 416.25 / 416.25 Weight last 48 hrs Weight 76.204 kg Physical Exam Const: COMMON NORMALS: no acute distress, patient oriented x3 and alert GENERAL APPEARANCE: cooperative and comfortable; not ill appearing ORIENTATION/CONSCIOUSNESS: Yes awake HENMT: COMMON NORMALS: normocephalic, atraumatic, hearing grossly normal bilaterally and moist oral mucous membranes HEAD & SCALP: normocephalic and atraumatic Eye: COMMON NORMALS: Equal, round and reactive pupils present, EOMs intact bilaterally and conjunctivae normal CONJUNCTIVA: Yes conjunctivae normal PUPIL: Yes Equal, round and reactive pupils present Neck/C-Spine: COMMON NORMALS: full ROM GENERAL: Yes normal visual inspection and Yes trachea midline Resp: COMMON NORMALS: normal respiratory effort, No retractions, No use of accessory muscles and clear to auscultation bilaterally EFFORT & INSPECTION: Yes able to speak in complete sentences, Yes symmetric chest movement and No tachypneic AUSCULTATION: clear to auscultation bilaterally Cardio: COMMON NORMALS: regular rate, regular rhythm, S1 normal heart sound present and S2 normal heart sound present RATE: regular rate RHYTHM: regular rhythm HEART SOUNDS: S1 normal heart sound present, S2 normal heart sound present and Murmur heart sound present systolic GI: COMMON NORMALS: Normal to inspection, nondistended, normoactive bowel sounds present and Soft to palpation INSPECTION: Yes central obesity PALPATION: Yes Soft to palpation, Yes Tenderness to palpation present (GI) Details: RLQ, No Guarding due to palpation present (GI) and No Rigid due to palpation Extremity: COMMON NORMALS: normal to inspection, full ROM, no clubbing, cyanosis or edema and no pedal edema Neuro: COMMON NORMALS: patient oriented x3, moves all extremities, no focal motor deficits, no sensory deficits noted and gait normal Psych: COMMON NORMALS: mental status grossly normal, Normal thought process present, cooperative, normal affect and speech normal SPEECH: Yes normal speech THOUGHT PROCESS: Normal thought process present Skin: COMMON NORMALS: no rashes or lesions noted, no jaundice, no petechiae and no mottling GENERAL SKIN EXAM: no rashes or lesions noted Data : 05/06/20 12:23 05/06/20 12:23 A&P Assessment and plan (1) RLQ abdominal pain: -Acute presentation of right lower quadrant pain started earlier this morning -Imaging concerning for rupture versus impending rupture of retrocecal appendix with noted diffuse soft tissue infiltration throughout the peritoneal cavity and retroperitoneum -Surgery consult requested, Dr. Gauthier to see -Keep NPO in case of surgical intervention -Received a dose of ciprofloxacin and metronidazole in ED, has noted allergy to PCN -Pain control, antiemetics as needed -IVF hydration, cautiously as has underlying diastolic CHF -No concern for sepsis currently as has minimal leukocytosis with WBC of 11.1, lactate of 1.3, is afebrile and hemodynamically stable -f/u blood cx -monitor vital signs Status: Acute (2) C. difficile enteritis: -Has been on vancomycin PO for treatment of C. difficile since 05/02/20; will continue to complete 10-day course -Contact isolation precautions -Has not had any loose stools since 05/04/20 Status: Acute (3) UTI (urinary tract infection): -UA indicative of infection with noted leukocyte esterase, pyuria, bacteria -f/u urine cx -is already on antibiotics Status: Acute Qualifiers: Urinary tract infection type: acute cystitis Hematuria presence: without hematuria Qualified Code(s): N30.00 - Acute cystitis without hematuria (4) CKD (chronic kidney disease): -baseline Cr appears to be around 1.2-1.5 -monitor renal function; patient had a contrast CT done -avoid nephrotoxins, renally dose meds -on IVF hydration Status: Chronic Qualifiers: Chronic kidney disease stage: unspecified stage Qualified Code(s): N18.9 - Chronic kidney disease, unspecified (5) Hypertension: -monitor vital signs -may need to hold oral antihypertensives for now Status: Chronic Qualifiers: Hypertension type: essential hypertension Qualified Code(s): I10 - Essential (primary) hypertension (6) Pulmonary hypertension: -moderate pulmonary HTN per last Echo -has associated nocturnal hypoxemia; 2 L NC qhs Status: Chronic (7) Anxiety: -anxiolytics as needed Status: Chronic (8) Nocturnal hypoxemia: Status: Chronic (9) CHF (NYHA class III, ACC/AHA stage C): -has known chronic diastolic CHF, no acute exacerbation currently though will need to monitor for fluid overload as is on IV fluid hydration -Echo (01/2020): EF=65%, moderate aortic stenosis, moderate MR, mild AR, moderate to severe TR, moderate pulmonary HTN (54) -f/u CXR report but per my review is unremarkable -follows up with Dr. Edge as outpatient Status: Chronic (10) Aortic stenosis, moderate: -systolic murmur on exam -moderate confirmed on Echo -has been following up with Cardiology Status: Chronic (11) Hyperlipidemia: -is on Zetia Status: Chronic Qualifiers: Hyperlipidemia type: mixed hyperlipidemia Qualified Code(s): E78.2 - Mixed hyperlipidemia (12) Hypothyroidism: -resume levothyroxine Status: Chronic Qualifiers: Hypothyroidism type: acquired Qualified Code(s): E03.9 - Hypothyroidism, unspecified Additional A&P Information -GI ppx with famotidine -DVT ppx with SCDs; hold off on AC pending surgical evaluation -Dispo: home -Code status: FULL code Attestations Medical Necessity Statement*: Rowan Matthews's hospital stay will require greater than 2 midnights for management of right lower quadrant pain with concern for ruptured appendicitis requiring surgical evaluation, IV fluid hydration, IV antibiotics. Time Spent in Patient Care: Greater than 35 minutes (>than 50% of time spent in counselling and/or direct pt care on unit). Coding Level of Care Code Acute Intelligence Chief for Chg Fwd Diagnoses RLQ abdominal pain R10.31 C. difficile enteritis A04.72 UTI (urinary tract infection) N30.00 Urinary tract infection type: acute cystitis Hematuria presence: without hematuria CKD (chronic kidney disease) N18.9 Chronic kidney disease stage: unspecified stage Hypertension I10 Hypertension type: essential hypertension Pulmonary hypertension I27.20 Anxiety F41.9 Nocturnal hypoxemia G47.34 CHF (NYHA class III, ACC/AHA stage C) I50.9 Aortic stenosis, moderate I35.0 Hyperlipidemia E78.2 Hyperlipidemia type: mixed hyperlipidemia Hypothyroidism E03.9 Hypothyroidism type: acquired
[2020-05-06] MEDS: metroNIDAZOLE IV 500 MG/100 ML PREMIX 100 MG IV ×2 (17:22→21:27)
[2020-05-06] MEDS: sodium chloride 0.9% 1,000 ML 100 ML IV ×2 (17:23→22:32)
[2020-05-06] MEDS: famotidine 20 mg/2 mL INJ IVP (17:54)
--- NOTE | 2020-05-06 18:38 | PC.NURSE ---
PT arrived on floor approximately 1600, she is alert and oriented x4, body had no open areas or bruises, lungs were clear to auscultation, bowel sounds x4, no edema, pulses bilateral radial and dorsal pedis were +3, pain in right lower abdomen, pain increased with movement. pt settled in and given call light and light switch before this nurse left the room.
--- NOTE | 2020-05-06 18:49 | P.CONIM_ITS ---
Providers/Reason For Consult Consulting Physican/Specialty*: Dr. York Reason for Consult*: Right lower quadrant pain Attending Physician: Jessica York MD Primary Care Provider: Shanthi Davis APN History of Present Illness History of Present Illness Rowan Matthews is a 74 year old female who was admitted to the hospital in January this year with pneumonia for C. difficile colitis over the last 1 week. Patient states that she is not had any loose stools in the last 48 hours. She woke up this morning around 130 with severe right-sided abdominal pain. Patient denies any nausea or vomiting but complains of loss of appetite. No fevers or chills. She was seen by PCP who referred her here for further evaluation Review of Systems General: Reports: 10 or more systems reviewed and unremarkable except in HPI and below Meds/Allergies Home Medications and Allergies Home Medications Medication Instructions Recorded Confirmed Last Taken Type alprazolam 0.25 mg tablet 0.25 mg PO DAILY tab 12/04/19 05/06/20 02/13/20 History aspirin 81 mg tablet,delayed 81 mg PO DAILY tab 12/04/19 05/06/20 05/05/20 History release biotin 1 mg capsule 1 mg PO DAILY cap 12/04/19 05/06/20 05/06/20 History cetirizine 10 mg capsule 10 mg PO DAILY cap 12/04/19 05/06/20 05/06/20 History ezetimibe 10 mg tablet 10 mg PO DAILY tab 12/04/19 05/06/20 02/13/20 History fluticasone propionate 50 1 spray INTRANASAL BID PRN 12/04/19 05/06/20 Unknown History mcg/actuation nasal spray,suspension levothyroxine 137 mcg capsule 137 mcg PO DAILY cap 12/04/19 05/06/20 05/06/20 History metoprolol succinate 50 mg 50 mg PO DAILY tab 12/04/19 05/06/20 05/05/20 History tablet,extended release 24 hr multivitamin 1 tab PO DAILY tab 12/04/19 05/06/20 05/06/20 History nitroglycerin 0.4 mg sublingual 0.4 mg SUBLINGUAL Q5M PRN 12/04/19 05/06/20 Unknown History tablet omega-3 fatty acids 1,000 mg 1,000 mg PO BID 12/04/19 05/06/2005/06/20 History capsule potassium gluconate 595 mg (99 mg) 595 mg PO DAILY tab 12/04/19 05/06/20 05/06/20 History tablet tramadol 50 mg PO Q4H PRN #30 tab 02/16/20 05/06/20 Unknown Rx chlorthalidone 25 mg PO DAILY 05/06/20 05/06/20 05/06/20 History melatonin 10 mg PO DAILY 05/06/20 05/06/20 05/05/20 History montelukast 10 mg PO DAILY 05/06/20 05/06/20 Unknown History vancomycin 125 mg PO QID 05/06/20 05/06/20 05/06/20 History Allergies Allergy/AdvReac Type Severity Reaction Status Date / Time codeine Allergy Unknown Unknown Verified 05/06/20 12:10 Penicillins Allergy Unknown Unknown Verified 05/06/20 12:10 Tetracyclines Allergy Unknown Unknown Verified 05/06/20 12:10 Current Medications Current Medications Generic Name Dose Route Start Last Admin Trade Name Freq PRN Reason Stop Dose Admin Famotidine 20 mg 05/06/20 17:15 05/06/20 17:54 Pepcid Inj IVP 20 mg Q12H TJ Administration Sodium Chloride 1,000 mls @ 100 mls/hr 05/06/20 15:25 05/06/20 17:23 Sodium Chloride 0.9% IV 100 mls/hr .Q10H TJ Administration Non-Formulary Medication 125 mg 05/06/20 17:00 05/06/20 17:28 Vancomycin PO Not Given QID TJ [id number] Ethyl Esters 1,000 mg 05/06/20 18:00 05/06/20 17:23 Hamilton-3 Fatty Acids PO Not Given BID TJ PFSH Acute PFSH: Medical History ACL (anterior cruciate ligament) tear Anxiety CKD (chronic kidney disease) Hyperlipidemia Hypertension Hypothyroidism LBBB (left bundle branch block) Nocturnal hypoxemia on 2 L NC qhs Pulmonary hypertension Moderate per echo Rotator cuff arthropathy of right shoulder SVT (supraventricular tachycardia) Surgical History History of hysterectomy including cervix History of tonsillectomy Social History Smoking and tobacco status: never smoked Alcohol intake: never Household members: spouse Marital status: 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 Temp 98.5 F 05/06/20 15:51 Pulse 85 05/06/20 15:51 Resp 20 H 05/06/20 16:08 BP 113/71 05/06/20 15:51 Pulse Ox 95 05/06/20 15:51 05/06/20 05/06/20 05/06/20 06:59 14:59 22:59 Intake Total 416.25 / 416.25 Balance 416.25 / 416.25 Weight last 48 hrs Weight 168 lb Physical Exam Narrative: EXAM NARRATIVE: HEENT: Normocephalic Eye: Sclera /conjunctiva normal Respiratory and chest: Bilateral clear breath sounds on auscultation Cardiovascular: Normal S1 and S2 heart sounds Abdomen: Soft to palpation, tender right lower quadrant, no guarding or rigidity, infraumbilical midline laparotomy scar Neurological: Oriented to place person and time Skin: Intact, no lesions appreciated on gross exam Data Micro: Micro: Microbiology 05/06/20 16:50 Blood Culture - Pr eliminary Blood SPECIMEN [facility] DIPTI 05/06/20 16:45 Blood Culture - Pr eliminary Blood SPECIMEN [facility] A&P Assessment and plan (1) Acute appendicitis: 74-year-old female with right lower quadrant pain, leukocytosis and CT scan showing dilated inflamed appendix located retrocecally. Discussed findings with the patient Plan for laparoscopic possible open appendectomy Procedure, risks, benefits and alternatives have been discussed with the patient who wishes to proceed with surgery. Status: Acute Consult Attestations Medical Necessity Statement: acute appendicitis requiring IV antibiotics and hospitalization Coding Level of Care Code Acute Account General Manager for [facility] Fw Diagnoses Acute appendicitis K35.80
--- NOTE | 2020-05-06 19:07 | P.ANESASSM_ITS ---
Pre-Anesthetic Assessment Pre-Anesthetic Assessment: Height/Weight: Height 1.65 m Weight 76.204 kg Temp Pulse Resp BP Pulse Ox 98.5 F 85 20 H 113/71 95 05/06/20 15:51 05/06/20 15:51 05/06/20 16:08 05/06/20 15:51 05/06/20 15:51 Preop Diagnosis: acute appendicitis Proposed Procedure: Operation Date: 05/06/20 19:15 Proposed Procedures p Laparoscopic Appendectomy(Not Applicable) - Ray Gauthier MD Was Beta Rj taken within 24 hours: Yes Exam: Pre-Anes Outpt Exam: alert, oriented x 3, clear to auscultation bilaterally and regular rate & rhythm (2/6 Systolic Ejection Murmur) Airway: Submandibular: WNL Cervical ROM: WNL MP: 2 History/ROS: No significant complaints Pulmonary: Pulmonary: RAMOS CV/HEM: CV/HEM: Angina (Stable), Arrythmia, CHF and HTN Comments: History of Moderate Aortic Stenosis : : Chronic renal Insufficiency Hepatic: Hepatic: None reported GI: GI: None reported Metabolic: Metabolic: Thyroid Musc/skel: Musc/skel: None reported Neuropsych: Neuropsych: Anxiety Anesthetic Plan: ASA status: 3E Anesthesia: General Risk of > 500 ml blo od loss (7ml/kg in children): No Meds/Allergies Current Medications: Current Medications Generic Name Dose Route Start Last Admin Trade Name Freq PRN Reason Stop Dose Admin Famotidine 20 mg 05/06/20 17:15 05/06/20 17:54 Pepcid Inj IVP 20 mg Q12H TJ Administration Sodium Chloride 1,000 mls @ 100 m ls/hr 05/06/20 15:25 05/06/20 17:23 Sodium Chloride 0.9% IV 100 mls/hr .Q10H TJ Administration Non-Formulary Medi cation 125 mg 05/06/20 17:00 05/06/20 17:28 Vancomycin PO Not Given QID TJ [id number] Ethyl Esters 1,000 mg 05/06/20 18:00 05/06/20 17:23 Iron-3 Fatty Ac ids PO Not Given BID TJ PFSH Anesthesia PFSH: Medical History ACL (anterior cruciate ligament) tear Anxiety CKD (chronic kidney disease) Hyperlipidemia Hypertension Hypothyroidism LBBB (left bundle branch block) Nocturnal hypoxemia on 2 L NC qhs Pulmonary hypertension Moderate per echo Rotator cuff arthropathy of right shoulder SVT (supraventricular tachycardia) Surgical History History of hysterectomy including cervix History of tonsillectomy Social History Smoking and tobacco status: never smoked Alcohol intake: never Household members: spouse Marital status: 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 7: 05/06/20 12:23 05/06/20 12:23 Other Labs: Laboratory Results - last 48 hr 05/06/20 05/06/20 05/06/20 12:23 12:23 12:50 WBC 11.1 H RBC 5.05 Hgb 15.0 Hct 46.1 MCV 91.3 MCH 29.7 MCHC 32.5 RDW 12.5 Plt Count 379 MPV 10.2 Neut % (Auto) 83.6 Lymph % (Auto) 10.6 Williamson % (Auto) 5.0 Eos % (Auto) 0.0 Baso % (Auto) 0.4 Neut # (Auto) 9.3 H Lymph # (Auto) 1.2 Williamson # (Auto) 0.6 Eos # (Auto) 0.0 Baso # (Auto) 0.1 Nucleated RBC % (auto) 0 Nucleated RBCs # 0.0 Sodium 135 L Potassium 3.7 Chloride 97 L Carbon Dioxide 24 Anion Gap 17.7 BUN 18 Creatinine 1.5 H Glucose 136 H Calculated Osmolality 279 L Lactate 1.3 Calcium 10.3 Total Bilirubin 0.9 AST 27 ALT 10 Alkaline Phosphatase 87 Total Protein 7.0 Albumin 3.5 Globulin 3.5 Lipase 11 L Urine Color Urine Appearance Urine pH Ur Specific [place] Urine Protein Urine Glucose (UA) Urine Ketones Urine Blood Urine Nitrate Urine Bilirubin Urine Urobilinogen Ur Leukocyte Esterase Urine RBC Urine WBC Ur Squamous Epith Cells Urine Bacteria Hyaline Casts 05/06/20 14:28 WBC RBC Hgb Hct MCV MCH MCHC RDW Plt Count MPV Neut % (Auto) Lymph % (Auto) Williamson % (Auto) Eos % (Auto) Baso % (Auto) Neut # (Auto) Lymph # (Auto) Williamson # (Auto) Eos # (Auto) Baso # (Auto) Nucleated RBC % (auto) Nucleated RBCs # Sodium Potassium Chloride Carbon Dioxide Anion Gap BUN Creatinine Glucose Calculated Osmolality Lactate Calcium Total Bilirubin AST ALT Alkaline Phosphatase Total Protein Albumin Globulin Lipase Urine Color Yellow Urine Appearance Hazy A Urine pH 5 Ur Specific [place] 1.020 Urine Protein Neg Urine Glucose (UA) Norm Urine Ketones 1+ H Urine Blood Neg Urine Nitrate Negative Urine Bilirubin 1+ H Urine Urobilinogen Norm Ur Leukocyte Esterase 2+ H Urine RBC 0-4 H Urine WBC 25-40 H Ur Squamous Epith Cells 0-4 H Urine Bacteria 2+ H Hyaline Casts 0-4 H Micro: Microbiology 05/06/20 16:50 Blood Culture - Preliminary Blood SPECIMEN COLLECTED 05/06/20 16:45 Blood Culture - Preliminary Blood SPECIMEN COLLECTED Cardiac Studies: No Data to Display
--- NOTE | 2020-05-06 20:15 | PC.NURSE ---
2009 spoke with patient's daughter in law Katherin Ansari via cell phone and given update. Radha Stinson RN
--- NOTE | 2020-05-06 20:38 | PC.NURSE ---
2037 spoke with patient's daughter in law Katherin and given update.
--- NOTE | 2020-05-06 20:43 | PM.OP ---
Operative Report Date of procedure: May 06, 2020 Pre-op Diagnosis: acute appendicitis, C. difficile colitis Post-op Findings: Acute suppurative appendicitis No evidence of significant colitis Procedure Done: Laparoscopic appendectomy Surgeon: Ray Gauthier Anesthesia: General Estimated blood loss (mL): 25 Condition: stable Disposition: PACU Procedure: The patient was taken to the Operating Room and intubated under general anesthesia after antibiotic had been administered. Using a 15 blade, a 1-cm infraumbilical incision was made and using open Casey technique, the peritoneal cavity was entered. A 12mm port with balloon was placed and 14 mm of pneumoperitoneum was created and 10-mm 30 degree scope was introduced. Two separate 5mm ports were placed in the left and right lower quadrant under direct visualization. The appendix was noted in the right lower quadrant and appeared acutely inflamed with suppuration.. Using [place] forceps, an opening was made in the mesoappendix near the base of the appendix. An Endo MELIDA stapler 45mm long 3.5mm blue load was introduced to divide the appendix at it's base. Using electrocautery, the mesoappendix including the appendicular artery was divided. There was no bleeding noted and the staple line appeared intact. The right lower quadrant was irrigated with saline and an EndoCatch bag was introduced to remove the appendix. All three ports were removed under direct visualization and there was no bleeding noted on the port sites. 10 cc of 0.5% Marcaine was infiltrated at the port sites. The fascia at the umbilical port was closed using figure of eight 0-Vicryl sutures and subcutaneous tissue was approximated using 3-0 Vicryl and skin at all 3 port sites was closed using 4-0 Monocryl and Dermabond. Associated Problem List Diagnoses (1) Acute appendicitis: (2) S/P laparoscopic appendectomy:
--- NOTE | 2020-05-06 21:04 | SUR.PHASEI ---
PT AWAKES EASILYI, PT WITH GOOD RESP EFFORT ABD SOFT SITES D/I, PT NOW ON 2LNC SATS ON RA 93% NOW UP TO 94% PT DENIES PAIN AND OR NAUSEA VSS.
--- NOTE | 2020-05-06 21:39 | SUR.PHASEI ---
2130 PT TO FLOOR MOVED TO BED WITH SLIDEBOARD AND ASSIST OF 3 NURSES PT AWAKE TOLERATED WELL, DENIES PAIN AND NAUSEA, ABD SOFT HANDOFF AT BEDSIDE BP 107/66, HR 86, SATS ON 2LNC 93% RESP 22
[2020-05-07 02:39] LABS: Basophils # 0.1 10^3/uL (0.0-0.1); Basophils % 0.5 %; Eosinophils % 0.1 %; Hematocrit 38.4 % (37.0-47.0); Hemoglobin 12.6 g/dL (11.5-15.3); Lymphocytes # 1.2 10^3/uL (0.8-4.8); Lymphocytes % 11.4 %; Mean Corpuscular HGB Conc 32.8 g/dL (30.0-36.0); Mean Corpuscular Hemoglobin 30.3 pg (28.0-34.0); Mean Corpuscular Volume 92.3 fL (81-99); Monocytes # 0.8 10^3/uL (0.2-0.9); Monocytes % 7.8 %; Neutrophils # 8.2 10^3/uL (1.8-7.7); Neutrophils % 79.8 %; Nucleated Red Blood Cells % 0 %; Platelet Count 289 10^3/cmm (130-400); Red Blood Count 4.16 10^6/uL (4.1-5.3); Red Cell Distribution Width 12.7 % (12.1-15.1); White Blood Count 10.3 10^3/uL (4.0-10.0)
[2020-05-07 03:01] LABS: Alanine Aminotransferase 9 U/L (0-33); Albumin Level 2.7 g/dL (3.5-5.2); Alkaline Phosphatase 69 IU/L (35-105); Anion Gap 15.4 (5-19); Aspartate Amino Transferase 23 U/L (0-32); Blood Urea Nitrogen 17 mg/dL (8-23); Calcium 9.7 mg/dL (8.5-10.5); Carbon Dioxide 24 mmol/L (22-29); Chloride 98 mmol/L (98-107); Globulin 3.4 g/dL (1.3-4.6); Glucose 122 mg/dL (65-115); Osmolality Calculated 276 mOsm/kg (285-295); Potassium 3.4 mmol/L (3.5-5.1); Sodium 134 mmol/L (136-145); Total Bilirubin 0.9 mg/dL (0.15-1.2); Total Protein 6.1 g/dL (6.6-8.7)
[2020-05-07 04:30] VITALS: BP 101/64; PULSE 83; RESP 24; TEMP 36.9; O2SAT 94
[2020-05-07] MEDS: famotidine 20 mg/2 mL INJ IVP ×2 (05:11→17:19)
[2020-05-07] MEDS: metroNIDAZOLE IV 500 MG/100 ML PREMIX 100 MG IV ×3 (05:11→19:55)
[2020-05-07 07:57] VITALS: BP 100/64; PULSE 83; RESP 18; TEMP 36.8; O2SAT 92
[2020-05-07] MEDS: levothyroxine 112 mcg Tablet PO (08:44)
[2020-05-07] MEDS: levothyroxine 25 mcg Tablet PO (08:44)
[2020-05-07] MEDS: ezetimibe 10 mg Tablet PO (08:44)
[2020-05-07] MEDS: metoprolol succinate ER (24 HR) 50 mg Tablet PO (08:44)
[2020-05-07] MEDS: montelukast sodium 10 mg Tablet PO (08:45)
[2020-05-07] MEDS: multivitamin therapeutic Tablet 1 TAB PO (08:45)
[2020-05-07] MEDS: omega-3 fatty acids 1,000 mg Capsule 1000 MG PO ×2 (08:45→17:19)
[2020-05-07] MEDS: acetaminophen 325 mg Tablet 650 MG PO (09:57)
--- NOTE | 2020-05-07 10:01 | PC.CHAP ---
Pastoral Care Encounter/Spiritual Assessment Type of Contact [] Declined major general visit [] Patient/Family/Request visit [] Outpatient visit [] Follow-up visit [] Physician referral [] Code/Alert [x] Routine visit [] Staff referral [] Actively dying [] Patient sleeping [] Family support [] [] Out of room [] Palliative care [] [] Receiving care in room [] Pre-surgical visit [] Trauma [] Long length of stay [] ICU visit [] Other: Relational/Emotional Strength [] Patient feels connected with others/family/visitors/staff [] Distress [] Loneliness/isolation [] Abandonment Spirituality of Patient [] Person of Cinthia [] Attends Buddhist of their Cinthia [] Believes in Prayer [] Reads Bible or Congregational materials [] There are Spiritual issues to be addressed Physician Relations Representative Interventions [x] Prayer [] Active listening [] Non-anxious presence [] Spiritual/emotional support [] Crisis/trauma care [] Spiritual counseling [] Bereavement support [] Provided bereavement packet [] Provided Bible/devotional materials [] Provided toy/stuffed animal, coloring book to patient or family member [] Provided Communion [] Anointing/[place] [] Salvation [x] Completed spiritual assessment [] Other: Impact on Illness or Injury [] Angry [] Fearful [] Anxious [] Often cries [] Exhaustion [] Unable to work [] Unable to attend anabaptist [] Unable to walk/stand [] Unable to read [] Unable to drive [] Unable to eat/drink [] Unable to sleep [] Unable to be with family [] Patient intubated [] Other: Summary Patient dealing with after surgery pain. Time spent with patient 10 min
[2020-05-07 10:57] VITALS: BP 93/53; PULSE 77; RESP 18; TEMP 36.8; O2SAT 92
--- NOTE | 2020-05-07 14:15 | P.PN_ITS ---
Subjective Subjective: Interval history: Patient doing well, denies any nausea or vomiting, no flatus or BM. No significant urine output overnight, bladder scan showed about 200 cc Vitals/I&O/Wt Last Vital Signs Temp 98.2 F 05/07/20 10:57 Pulse 77 05/07/20 10:57 Resp 18 05/07/20 10:57 BP 93/53 05/07/20 10:57 Pulse Ox 92 05/07/20 10:57 05/06/20 05/07/20 05/07/20 22:59 06:59 14:59 Intake Total 715 / 1231.25 100 / 1231.25 1360 / 1360 Output Total 0 15 Balance 700 / 1216.25 100 / 1216.25 1360 / 1360 Weight last 48 hrs Weight 168 lb Physical Exam Narrative: EXAM NARRATIVE: Abdomen: Soft, tender right lower quadrant, incisions healing well, no distention or guarding or rigidity Data : 05/07/20 02:00 05/07/20 02:00 Micro: Microbiology 05/06/20 14:28 Urine Culture - Preliminary Urine,Clean Catch 05/06/20 16:50 Blood Culture - Preliminary Blood SPECIMEN COLLECTED 05/06/20 16:45 Blood Culture - Preliminary Blood SPECIMEN COLLECTED A&P Assessment and plan (1) S/P laparoscopic appendectomy: Low urine output overnight, patient has been afebrile. WBC down to 10.3 Clear liquid diet Await return of bowel function Continue IV Cipro and Flagyl Status: Acute (2) C. difficile enteritis: Hold oral vancomycin since patient is on IV Flagyl Status: Acute (3) CKD (chronic kidney disease): She has chronic kidney dysfunction as well as heart failure and a urine output has been an issue since surgery. Discussed the case with Dr. York who will assess her before making a decision on starting chlorthalidone Status: Chronic Qualifiers: Chronic kidney disease stage: unspecified stage Qualified Code(s): N18.9 - Chronic kidney disease, unspecified Attestations Medical Necessity Statement*: Acute appendicitis requiring IV antibiotics, chronic renal failure and heart failure requiring continued medical management Coding Level of Care Code Acute Senior Private Client Advisor for [facility] Fw Diagnoses S/P laparoscopic appendectomy Z90.49 C. difficile enteritis A04.72 CKD (chronic kidney disease) N18.9 Chronic kidney disease stage: unspecified stage
[2020-05-07 15:16] VITALS: BP 123/77; PULSE 73; RESP 16; TEMP 36.7; O2SAT 95
--- NOTE | 2020-05-07 15:50 | PM.PN ---
Subjective Subjective: Interval history: No urine output documented overnight, she is POD # 1 s/p laparoscopic appendectomy, decreased leukocytosis, hemodynamically stable, afebrile. Started on CLD, noted stable renal function. Seems to be tolerating CLD without difficulty, has been able to void independently and BP has improved, will resume diuretic. Has not yet passed gas, no BM. Discussed need to hold vancomycin while she is on Flagyl which she understands. Medications: Reviewed: Yes Medication Review Details: Active Medications Generic Name Dose Route Start Last Admin Trade Name Freq PRN Reason Stop Dose Admin Acetaminophen 650 mg 05/06/20 16:08 05/07/20 09:57 Tylenol PO 650 mg Q6H PRN Administration Mild/Mod Pain Or Temp >/= 101 Hydrocodone Bitart /Acetaminophen 1 tab 05/06/20 21:20 [place] 5-325 Mg PO Q6H PRN MODERATE PAIN Alprazolam 0.25 mg 05/07/20 09:00 05/07/20 08:42 Xanax PO Not Given DAILY TJ Ezetimibe 10 mg 05/07/20 09:00 05/07/20 08:44 Zetia PO 10 mg DAILY TJ Administration Famotidine 20 mg 05/06/20 17:15 05/07/20 05:11 Pepcid Inj IVP 20 mg Q12H TJ Administration Fluticasone Propio mirta 1 spray 05/06/20 18:00 Flonase INTRANASAL BID PRN ALLERGIES Sodium Chloride 1,000 mls @ 100 m ls/hr 05/06/20 15:25 05/07/20 13:10 Sodium Chloride 0.9% IV Not Given .Q10H TJ Ciprofloxacin/Dext domitila 400 mg in 200 mls @ 200 mls/hr 05/07/20 03:30 05/06/20 22:32 Cipro IV Not Given Q12H TJ Protocol Metronidazole 500 mg in 100 mls @ 100 mls/hr 05/06/20 21:00 05/07/20 12:29 Flagyl Iv IV 100 mls/hr Q8H TJ Administration Protocol Levothyroxine Sodi um 112 mcg 05/07/20 09:00 05/07/20 08:44 Synthroid PO 112 mcg DAILY TJ Administration Levothyroxine Sodi um 25 mcg 05/07/20 09:00 06/10/20 08:44 Synthroid PO 25 mcg DAILY TJ Administration Metoprolol Succina te 50 mg 05/07/20 09:00 05/07/20 10:04 Toprol Xl PO Not Given DAILY TJ Montelukast Sodium 10 mg 05/07/20 09:00 05/07/20 08:45 Singulair PO 10 mg DAILY TJ Administration Morphine Sulfate 2 mg 05/06/20 15:25 Morphine IVP Q4H PRN SEVERE PAIN Multivitamins Ther apeutic 1 tab 05/07/20 09:00 05/07/20 08:45 Multivitamin Tab PO 1 tab DAILY TJ Administration Nitroglycerin 0.4 mg 05/06/20 16:08 Nitrostat SUBLINGUAL Q5M PRN CHEST PAINS Non-Formulary Medi cation 125 mg 05/06/20 17:00 05/06/20 17:28 Vancomycin PO Not Given QID [facility] Lkasm-6-Alih Ethyl Esters 1,000 mg 05/06/20 18:00 05/07/20 08:45 [place]-3 Fatty Ac ids PO 1,000 mg BID TJ Administration Ondansetron HCl 4 mg 05/06/20 15:25 Zofran PO Q8H PRN NAUSEA AND VOMITI NG Ondansetron HCl 4 mg 05/06/20 21:20 Zofran IVP Q6H PRN NAUSEA AND VOMITI NG Tramadol HCl 50 mg 05/06/20 16:08 Ultram PO Q4H PRN Moderate Pain codeine Allergy (Severe, Verified 05/06/20 19:06) ALGY-Rash Penicillins Allergy (Severe, Verified 05/06/20 19:06) ALGY-Rash Tetracyclines Allergy (Severe, Verified 05/06/20 19:06) ALGY-Rash Vitals/I&O/Wt Last Vital Signs Temp 98.0 F 05/07/20 15:16 Pulse 73 05/07/20 15:16 Resp 16 05/07/20 15:16 BP 123/77 05/07/20 15:16 Pulse Ox 95 05/07/20 15:16 05/07/20 05/07/20 05/07/20 06:59 14:59 22:59 Intake Total 100 / 1231.25 1360 / 1360 Output Total 0 / 15 Balance 100 / 1216.25 1360 / 1360 Weight last 48 hrs Weight 76.204 kg Physical Exam Const: COMMON NORMALS: no acute distress, patient oriented x3 and alert GENERAL APPEARANCE: cooperative and comfortable; not ill appearing ORIENTATION/CONSCIOUSNESS: Yes awake OTHER: -sitting in chair by bedside HENMT: COMMON NORMALS: normocephalic, atraumatic, hearing grossly normal bilaterally and moist oral mucous membranes HEAD & SCALP: normocephalic and atraumatic Eye: COMMON NORMALS: Equal, round and reactive pupils present, EOMs intact bilaterally and conjunctivae normal CONJUNCTIVA: Yes conjunctivae normal PUPIL: Yes Equal, round and reactive pupils present Neck/C-Spine: COMMON NORMALS: full ROM GENERAL: Yes normal visual inspection and Yes trachea midline Resp: COMMON NORMALS: normal respiratory effort, No retractions, No use of accessory muscles and clear to auscultation bilaterally EFFORT & INSPECTION: Yes able to speak in complete sentences, Yes symmetric chest movement and No tachypneic AUSCULTATION: clear to auscultation bilaterally Cardio: COMMON NORMALS: regular rate, regular rhythm, S1 normal heart sound present and S2 normal heart sound present RATE: regular rate RHYTHM: regular rhythm HEART SOUNDS: S1 normal heart sound present, S2 normal heart sound present and Murmur heart sound present systolic GI: COMMON NORMALS: Soft to palpation INSPECTION: Yes normal to inspection, Yes central obesity and Yes other (laparoscopic sites with no noted drainage, hematoma) AUSCULTATION: Yes Absent bowel sounds PALPATION: Yes Soft to palpation, Yes Tenderness to palpation present (GI) (minimally around laparoscopic incision sites) Details: RLQ, No Guarding due to palpation present (GI) and No Rigid due to palpation : BLADDER/KIDNEY EXAM: No catheter in place Extremity: COMMON NORMALS: normal to inspection, full ROM, no clubbing, cyanosis or edema and no pedal edema Neuro: COMMON NORMALS: patient oriented x3, moves all extremities, no focal motor deficits, no sensory deficits noted and gait normal SENSORIUM/ORIENTATION: Yes alert Psych: COMMON NORMALS: mental status grossly normal, Normal thought process present, cooperative, normal affect and speech normal SPEECH: Yes normal speech THOUGHT PROCESS: Normal thought process present Skin: COMMON NORMALS: no rashes or lesions noted, no jaundice, no petechiae and no mottling GENERAL SKIN EXAM: no rashes or lesions noted Data : 05/07/20 02:00 06/10/20 02:00 Micro: Microbiology 05/06/20 14:28 Urine Culture - Preliminary Urine,Clean Catch 05/06/20 16:50 Blood Culture - Preliminary Blood SPECIMEN COLLECTED 05/06/20 16:45 Blood Culture - Preliminary Blood SPECIMEN COLLECTED A&P Assessment and plan (1) RLQ abdominal pain: -secondary to acute appendicitis; POD # 1 s/p laparoscopic appendectomy -Imaging concerning for rupture versus impending rupture of retrocecal appendix with noted diffuse soft tissue infiltration throughout the peritoneal cavity and retroperitoneum -Surgery consult by Dr. Gauthier appreciated -on ciprofloxacin and metronidazole, has noted allergy to PCN -Pain control, antiemetics as needed -IVF hydration, cautiously as has underlying diastolic CHF -leukocytosis trending down -f/u blood cx -continue to monitor vital signs -CLD started today; advance as tolerated Status: Acute (2) C. difficile enteritis: -Has been on vancomycin PO for treatment of C. difficile since 05/02/20; Vanc on hold as on Flagyl -Contact isolation precautions -Has not had any loose stools since 05/04/20 Status: Acute (3) UTI (urinary tract infection): -UA indicative of infection with noted leukocyte esterase, pyuria, bacteria -urine cx: prelim negative -is already on antibiotics Status: Acute Qualifiers: Hematuria presence: without hematuria Urinary tract infection type: acute cystitis Qualified Code(s): N30.00 - Acute cystitis without hematuria (4) CKD (chronic kidney disease): -baseline Cr appears to be around 1.2-1.5 -continue to monitor renal function; patient had a contrast CT done -avoid nephrotoxins, renally dose meds -off IVF hydration Status: Chronic Qualifiers: Chronic kidney disease stage: unspecified stage Qualified Code(s): N18.9 - Chronic kidney disease, unspecified (5) Hypertension: -continue to monitor vital signs; BP more stable this afternoon -will resume chlorthalidone Status: Chronic Qualifiers: Hypertension type: essential hypertension Qualified Code(s): I10 - Essential (primary) hypertension (6) Pulmonary hypertension: -moderate pulmonary HTN per last Echo -has associated nocturnal hypoxemia; 2 L NC qhs Status: Chronic (7) Anxiety: -anxiolytics as needed Status: Chronic (8) Nocturnal hypoxemia: Status: Chronic (9) CHF (NYHA class III, ACC/AHA stage C): -has known chronic diastolic CHF, no acute exacerbation currently though will need to monitor for fluid overload as is on IV fluid hydration -Echo (01/2020): EF=65%, moderate aortic stenosis, moderate MR, mild AR, moderate to severe TR, moderate pulmonary HTN (54) -CXR per my review is unremarkable -follows up with Dr. Edge as outpatient Status: Chronic (10) Aortic stenosis, moderate: -systolic murmur on exam -moderate confirmed on Echo -has been following up with Cardiology Status: Chronic (11) Hyperlipidemia: -is on Zetia Status: Chronic Qualifiers: Hyperlipidemia type: mixed hyperlipidemia Qualified Code(s): E78.2 - Mixed hyperlipidemia (12) Hypothyroidism: -on levothyroxine Status: Chronic Qualifiers: Hypothyroidism type: acquired Qualified Code(s): E03.9 - Hypothyroidism, unspecified Additional A&P Information -GI ppx with famotidine -DVT ppx with SCDs; hold off on AC pending surgical evaluation -Dispo: home -Code status: FULL code Attestations Medical Necessity Statement*: Patient requires hospitalization for continued post-op care, pending improved PO tolerance, continued treatment of C.difficile enteritis and UTI. Time Spent in Patient Care: 16 - 35 minutes (>than 50% of time spent in counselling and/or direct pt care on unit). 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 difficile enteritis A04.72 UTI (urinary tract infection) N30.00 Hematuria presence: without hematuria Urinary tract infection type: acute cystitis CKD (chronic kidney disease) N18.9 Chronic kidney disease stage: unspecified stage Hypertension I10 Hypertension type: essential hypertension Pulmonary hypertension I27.20 Anxiety F41.9 Nocturnal hypoxemia G47.34 CHF (NYHA class III, ACC/AHA stage C) I50.9 Aortic stenosis, moderate I35.0 Hyperlipidemia E78.2 Hyperlipidemia type: mixed hyperlipidemia Hypothyroidism E03.9 Hypothyroidism type: acquired
[2020-05-07] MEDS: chlorthalidone 25 mg Tablet PO (17:19)
[2020-05-07 19:26] VITALS: BP 129/78; PULSE 94; RESP 19; TEMP 36.6; O2SAT 94
[2020-05-07] MEDS: sodium chloride 0.9% 1,000 ML 50 ML IV (19:54)
[2020-05-08] VITALS (7 sets, daily range): BP systolic 100–118; BP diastolic 64–73; PULSE 78–83; RESP 16–18; TEMP 36.4–36.8; O2SAT 93–97
[2020-05-08] MEDS: ciprofloxacin 400 MG/200 ML PREMIX 200 MG IV ×2 (02:01→12:42)
[2020-05-08 03:47] LABS: Basophils # 0.1 10^3/uL (0.0-0.1); Basophils % 0.8 %; Eosinophils # 0.2 10^3/uL (0.0-0.8); Eosinophils % 2.6 %; Hematocrit 35.5 % (37.0-47.0); Hemoglobin 11.4 g/dL (11.5-15.3); Lymphocytes # 0.9 10^3/uL (0.8-4.8); Lymphocytes % 14.2 %; Mean Corpuscular HGB Conc 32.1 g/dL (30.0-36.0); Mean Corpuscular Hemoglobin 29.4 pg (28.0-34.0); Mean Corpuscular Volume 91.5 fL (81-99); Mean Platelet Volume 10.5 fL (7.4-10.4); Monocytes # 0.6 10^3/uL (0.2-0.9); Monocytes % 8.6 %; Neutrophils # 4.8 10^3/uL (1.8-7.7); Neutrophils % 73.6 %; Nucleated Red Blood Cells % 0 %; Platelet Count 270 10^3/cmm (130-400); Red Blood Count 3.88 10^6/uL (4.1-5.3); Red Cell Distribution Width 12.7 % (12.1-15.1); White Blood Count 6.5 10^3/uL (4.0-10.0)
[2020-05-08 04:21] LABS: Anion Gap 13.9 (5-19); Blood Urea Nitrogen 20 mg/dL (8-23); Calcium 8.8 mg/dL (8.5-10.5); Carbon Dioxide 23 mmol/L (22-29); Chloride 98 mmol/L (98-107); Glucose 119 mg/dL (65-115); Osmolality Calculated 272 mOsm/kg (285-295); Sodium 132 mmol/L (136-145)
[2020-05-08 04:25] LABS: Potassium 2.9 mmol/L (3.5-5.1)
[2020-05-08] MEDS: potassium chloride ER 10 mEq Tablet 40 MEQ PO (04:40)
[2020-05-08] MEDS: metroNIDAZOLE IV 500 MG/100 ML PREMIX 100 MG IV ×3 (04:40→21:58)
[2020-05-08] MEDS: famotidine 20 mg/2 mL INJ IVP ×2 (06:41→18:35)
--- NOTE | 2020-05-08 08:30 | P.PN_ITS ---
Subjective Subjective: Interval history: Improved urine output overnight, 670 mL, stable Hg and renal function. Hemodynamically stable, afebrile. POD # 2 s/p laparoscopic appendectomy. Has ambulated some today, however no flatus and no bowel movement yet. Advanced to full liquid diet earlier this morning. Medications: Reviewed: Yes Medication Review Details: Active Medications Generic Name Dose Route Start Last Admin Trade Name Freq PRN Reason Stop Dose Admin Acetaminophen 650 mg 05/06/20 16:08 05/07/20 09:57 Tylenol PO 650 mg Q6H PRN Administration Mild/Mod Pain Or Temp >/= 101 Hydrocodone Bitart /Acetaminophen 1 tab 05/06/20 21:20 [place] 5-325 Mg PO Q6H PRN MODERATE PAIN Alprazolam 0.25 mg 05/07/20 09:00 05/07/20 08:42 Xanax PO Not Given DAILY TJ Chlorthalidone 25 mg 05/07/20 15:55 05/07/20 17:19 Thalitone PO 25 mg DAILY TJ Administration Ezetimibe 10 mg 05/07/20 09:00 05/07/20 08:44 Zetia PO 10 mg DAILY TJ Administration Famotidine 20 mg 05/06/20 17:15 05/08/20 06:41 Pepcid Inj IVP 20 mg Q12H TJ Administration Fluticasone Propio mirta 1 spray 05/06/20 18:00 Flonase INTRANASAL BID PRN ALLERGIES Sodium Chloride 1,000 mls @ 100 m ls/hr 05/06/20 15:25 05/08/20 00:00 Sodium Chloride 0.9% IV 50 mls/hr .Q10H TJ Infusion Metronidazole 500 mg in 100 mls @ 100 mls/hr 05/06/20 21:00 05/08/20 04:40 Flagyl Iv IV 100 mls/hr Q8H TJ Administration Protocol Ciprofloxacin/Dext domitila 400 mg in 200 mls @ 200 mls/hr 05/08/20 01:30 05/08/20 02:01 Cipro IV 200 mls/hr Q12H TJ Administration Protocol Levothyroxine Sodi um 112 mcg 05/07/20 09:00 05/07/20 08:44 Synthroid PO 112 mcg DAILY TJ Administration Levothyroxine Sodi um 25 mcg 05/07/20 09:00 05/07/20 08:44 Synthroid PO 25 mcg DAILY TJ Administration Metoprolol Succina te 50 mg 05/07/20 09:00 05/07/20 10:04 Toprol Xl PO Not Given DAILY TJ Montelukast Sodium 10 mg 05/07/20 09:00 05/07/20 08:45 Singulair PO 10 mg DAILY TJ Administration Morphine Sulfate 2 mg 05/06/20 15:25 Morphine IVP Q4H PRN SEVERE PAIN Multivitamins Ther apeutic 1 tab 05/07/20 09:00 05/07/20 08:45 Multivitamin Tab PO 1 tab DAILY TJ Administration Nitroglycerin 0.4 mg 05/06/20 16:08 Nitrostat SUBLINGUAL Q5M PRN CHEST PAINS Non-Formulary Medi cation 125 mg 05/06/20 17:00 05/06/20 17:28 Vancomycin PO Not Given QID TJ Ecjpc-1-Tgwn Ethyl Esters 1,000 mg 05/06/20 18:00 05/07/20 17:19 [place]-3 Fatty Ac ids PO 1,000 mg BID TJ Administration Ondansetron HCl 4 mg 05/06/20 15:25 Zofran PO Q8H PRN NAUSEA AND VOMITI NG Ondansetron HCl 4 mg 05/06/20 21:20 Zofran IVP Q6H PRN NAUSEA AND VOMITI NG Tramadol HCl 50 mg 05/06/20 16:08 Ultram PO Q4H PRN Moderate Pain codeine Allergy (Severe, Verified 05/06/20 19:06) ALGY-Rash Penicillins Allergy (Severe, Verified 05/06/20 19:06) ALGY-Rash Tetracyclines Allergy (Severe, Verified 05/06/20 19:06) ALGY-Rash Vitals/I&O/Wt Last Vital Signs Temp 97.7 F 05/08/20 04:00 Pulse 80 05/08/20 04:00 Resp 18 05/08/20 04:00 BP 107/68 05/08/20 04:00 Pulse Ox 97 05/08/20 04:00 05/07/20 05/08/20 05/08/20 22:59 06:59 14:59 Intake Total 55 / 1515 100 / 1615 Output Total 120 / 120 550 / 670 Balance -65 / 1395 -450 / 945 Weight last 48 hrs Weight 77.281 kg Weight 76.204 kg Physical Exam Const: COMMON NORMALS: no acute distress, patient oriented x3 and alert GENERAL APPEARANCE: cooperative and comfortable; not ill appearing ORIENTATION/CONSCIOUSNESS: Yes awake OTHER: -resting in bed HENMT: COMMON NORMALS: normocephalic, atraumatic, hearing grossly normal bilaterally and moist oral mucous membranes HEAD & SCALP: normocephalic and atraumatic Eye: COMMON NORMALS: Equal, round and reactive pupils present, EOMs intact bilaterally and conjunctivae normal CONJUNCTIVA: Yes conjunctivae normal PUPIL: Yes Equal, round and reactive pupils present Neck/C-Spine: COMMON NORMALS: full ROM GENERAL: Yes normal visual inspection and Yes trachea midline Resp: COMMON NORMALS: normal respiratory effort, No retractions, No use of accessory muscles and clear to auscultation bilaterally EFFORT & INSPECTION: Yes able to speak in complete sentences, Yes symmetric chest movement and No tachypneic AUSCULTATION: clear to auscultation bilaterally Cardio: COMMON NORMALS: regular rate, regular rhythm, S1 normal heart sound present and S2 normal heart sound present RATE: regular rate RHYTHM: regular rhythm HEART SOUNDS: S1 normal heart sound present, S2 normal heart sound present and Murmur heart sound present systolic GI: COMMON NORMALS: Soft to palpation INSPECTION: Yes normal to inspection, Yes central obesity and Yes other (laparoscopic sites with no noted drainage, hematoma) AUSCULTATION: Yes Absent bowel sounds PALPATION: Yes Soft to palpation, Yes Tenderness to palpation present (GI) (minimally around laparoscopic incision sites), No Guarding due to palpation present (GI) and No Rigid due to palpation : BLADDER/KIDNEY EXAM: No catheter in place Extremity: COMMON NORMALS: normal to inspection, full ROM, no clubbing, cyanosis or edema and no pedal edema Neuro: COMMON NORMALS: patient oriented x3, moves all extremities, no focal motor deficits, no sensory deficits noted and gait normal SENSORIUM/ORIENTATION: Yes alert Psych: COMMON NORMALS: mental status grossly normal, Normal thought process present, cooperative, normal affect and speech normal SPEECH: Yes normal speech THOUGHT PROCESS: Normal thought process present Skin: COMMON NORMALS: no rashes or lesions noted, no jaundice, no petechiae and no mottling GENERAL SKIN EXAM: no rashes or lesions noted Data : 05/08/20 02:40 05/08/20 02:40 Micro: Microbiology 05/06/20 16:50 Blood Culture - Preliminary Blood NEGATIVE TO DATE 05/06/20 16:45 Blood Culture - Preliminary Blood NEGATIVE TO DATE 05/06/20 14:28 Urine Culture - Preliminary Urine,Clean Catch A&P Assessment and plan (1) RLQ abdominal pain: -secondary to acute appendicitis; POD # 2 s/p laparoscopic appendectomy -Imaging concerning for rupture versus impending rupture of retrocecal appendix with noted diffuse soft tissue infiltration throughout the peritoneal cavity and retroperitoneum -Surgery consult by Dr. Gauthier appreciated -on ciprofloxacin and metronidazole, has noted allergy to PCN -Pain control, antiemetics as needed -IVF hydration, cautiously as has underlying diastolic CHF -leukocytosis resolved -blood cx: prelim negative -continue to monitor vital signs -on FLD; advance as tolerated -appears to have post-op ileus Status: Acute (2) C. difficile enteritis: -Has been on vancomycin PO for treatment of C. difficile since 05/02/20; Vanc on hold as on Flagyl -Contact isolation precautions -Has not had any loose stools since 05/04/20 Status: Acute (3) UTI (urinary tract infection): -UA indicative of infection with noted leukocyte esterase, pyuria, bacteria -urine cx: prelim negative -is already on antibiotics Status: Acute Qualifiers: Hematuria presence: without hematuria Urinary tract infection type: acute cystitis Qualified Code(s): N30.00 - Acute cystitis without hematuria (4) CKD (chronic kidney disease): -baseline Cr appears to be around 1.2-1.5 -continue to monitor renal function; patient had a contrast CT done -avoid nephrotoxins, renally dose meds -off IVF hydration Status: Chronic Qualifiers: Chronic kidney disease stage: unspecified stage Qualified Code(s): N18.9 - Chronic kidney disease, unspecified (5) Hypertension: -continue to monitor vital signs; BP more stable this afternoon -on chlorthalidone Status: Chronic Qualifiers: Hypertension type: essential hypertension Qualified Code(s): I10 - Essential (primary) hypertension (6) Pulmonary hypertension: -moderate pulmonary HTN per last Echo -has associated nocturnal hypoxemia; 2 L NC qhs Status: Chronic (7) Anxiety: -anxiolytics as needed Status: Chronic (8) Nocturnal hypoxemia: Status: Chronic (9) CHF (NYHA class III, ACC/AHA stage C): -has known chronic diastolic CHF, no acute exacerbation currently though will need to monitor for fluid overload as is on IV fluid hydration -Echo (01/2020): EF=65%, moderate aortic stenosis, moderate MR, mild AR, moderate to severe TR, moderate pulmonary HTN (54) -CXR per my review is unremarkable -follows up with Dr. Edge as outpatient Status: Chronic (10) Aortic stenosis, moderate: -systolic murmur on exam -moderate confirmed on Echo -has been following up with Cardiology Status: Chronic (11) Hyperlipidemia: -is on Zetia Status: Chronic Qualifiers: Hyperlipidemia type: mixed hyperlipidemia Qualified Code(s): E78.2 - Mixed hyperlipidemia (12) Hypothyroidism: -on levothyroxine Status: Chronic Qualifiers: Hypothyroidism type: acquired Qualified Code(s): E03.9 - Hypothyroidism, unspecified Additional A&P Information -GI ppx with famotidine -DVT ppx with SCDs; encourage ambulation -Dispo: home -Code status: FULL code Attestations Medical Necessity Statement*: Patient requires hospitalization for continued post-op care pending resolution of post-op ileus. Time Spent in Patient Care: 16 - 35 minutes (>than 50% of time spent in counselling and/or direct pt care on unit) . Coding Level of Care Code Acute Infrastructure Consultant for Chg Fwd Exam Comprehensive Diagnoses RLQ abdominal pain R10.31 C. difficile enteritis A04.72 UTI (urinary tract infection) N30.00 Hematuria presence: without hematuria Urinary tract infection type: acute cystitis CKD (chronic kidney disease) N18.9 Chronic kidney disease stage: unspecified stage Hypertension I10 Hypertension type: essential hypertension Pulmonary hypertension I27.20 Anxiety F41.9 Nocturnal hypoxemia G47.34 CHF (NYHA class III, ACC/AHA stage C) I50.9 Aortic stenosis, moderate I35.0 Hyperlipidemia E78.2 Hyperlipidemia type: mixed hyperlipidemia Hypothyroidism E03.9 Hypothyroidism type: acquired
[2020-05-08] MEDS: omega-3 fatty acids 1,000 mg Capsule 1000 MG PO ×2 (10:20→18:36)
[2020-05-08] MEDS: chlorthalidone 25 mg Tablet PO (10:20)
[2020-05-08] MEDS: levothyroxine 112 mcg Tablet PO (10:58)
[2020-05-08] MEDS: ezetimibe 10 mg Tablet PO (10:59)
[2020-05-08] MEDS: multivitamin therapeutic Tablet 1 TAB PO (10:59)
[2020-05-08] MEDS: levothyroxine 25 mcg Tablet PO (10:59)
[2020-05-08] MEDS: montelukast sodium 10 mg Tablet PO (11:00)
[2020-05-08] MEDS: sodium chloride 0.9% 1,000 ML 50 ML IV (11:00)
--- NOTE | 2020-05-08 12:30 | PM.PN ---
Subjective Subjective: Interval history: Patient has been doing well, no flatus or BM, feels a bit distended but no nausea or vomiting, tolerating clear liquid diet Vitals/I&O/Wt Last Vital Signs Temp 98.2 F 05/08/20 11:30 Pulse 79 05/08/20 11:30 Resp 18 05/08/20 11:30 BP 106/69 05/08/20 11:30 Pulse Ox 96 05/08/20 11:30 05/07/20 05/08/20 05/08/20 22:59 06:59 14:59 Intake Total 55 / 1915 400 / 1915 1730 / 1730 Output Total 120 / 670 550 / 670 250 / 250 Balance -65 / 1245 -150 / 1245 1480 / 1480 Weight last 48 hrs Weight 170 lb 6 oz Physical Exam Narrative: EXAM NARRATIVE: Abdomen: Soft, slightly distended, nontender Data : 05/08/20 02:40 05/08/20 02:40 Micro: Microbiology 05/06/20 16:50 Blood Culture - Preliminary Blood NEGATIVE TO DATE 05/06/20 16:45 Blood Culture - Preliminary Blood NEGATIVE TO DATE 05/06/20 14:28 Urine Culture - Preliminary Urine,Clean Catch A&P Assessment and plan (1) S/P laparoscopic appendectomy: Low urine output overnight, patient has been afebrile. WBC down to 6 advance to full liquid diet Await return of bowel function Continue IV Cipro and Flagyl Status: Acute (2) C. 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 difficile enteritis A04.72 CKD (chronic kidney disease) N18.9 Chronic kidney disease stage: unspecified stage
[2020-05-09] VITALS: BP 121/76; PULSE 82; RESP 18; TEMP 36.6; O2SAT 97
[2020-05-09] MEDS: ciprofloxacin 400 MG/200 ML PREMIX 200 MG IV ×2 (01:20→13:38)
[2020-05-09] MEDS: sodium chloride 0.9% 1,000 ML 50 ML IV (01:23)
[2020-05-09 02:53] LABS: Basophils % 0.7 %; Eosinophils # 0.2 10^3/uL (0.0-0.8); Eosinophils % 3.8 %; Hematocrit 35.6 % (37.0-47.0); Hemoglobin 11.5 g/dL (11.5-15.3); Lymphocytes % 17.8 %; Mean Corpuscular HGB Conc 32.3 g/dL (30.0-36.0); Mean Corpuscular Hemoglobin 29.9 pg (28.0-34.0); Mean Corpuscular Volume 92.5 fL (81-99); Mean Platelet Volume 10.1 fL (7.4-10.4); Monocytes # 0.5 10^3/uL (0.2-0.9); Monocytes % 9.4 %; Neutrophils # 3.7 10^3/uL (1.8-7.7); Neutrophils % 67.9 %; Nucleated Red Blood Cells % 0 %; Platelet Count 288 10^3/cmm (130-400); Red Blood Count 3.85 10^6/uL (4.1-5.3); Red Cell Distribution Width 12.9 % (12.1-15.1); White Blood Count 5.5 10^3/uL (4.0-10.0)
[2020-05-09 03:12] LABS: Blood Urea Nitrogen 13 mg/dL (8-23); Calcium 8.6 mg/dL (8.5-10.5); Carbon Dioxide 24 mmol/L (22-29); Chloride 100 mmol/L (98-107); Glucose 136 mg/dL (65-115); Osmolality Calculated 280 mOsm/kg (285-295); Sodium 136 mmol/L (136-145)
[2020-05-09 04:00] VITALS: BP 118/72; PULSE 79; RESP 17; TEMP 36.5; O2SAT 99
[2020-05-09] MEDS: famotidine 20 mg/2 mL INJ IVP ×2 (05:04→16:50)
[2020-05-09] MEDS: metroNIDAZOLE IV 500 MG/100 ML PREMIX 100 MG IV ×3 (05:05→20:09)
[2020-05-09 07:27] VITALS: BP 114/68; PULSE 86; RESP 16; TEMP 36.7; O2SAT 96
[2020-05-09] MEDS: levothyroxine 112 mcg Tablet PO (10:51)
[2020-05-09] MEDS: omega-3 fatty acids 1,000 mg Capsule 1000 MG PO (10:51)
[2020-05-09] MEDS: multivitamin therapeutic Tablet 1 TAB PO (10:52)
[2020-05-09] MEDS: metoprolol succinate ER (24 HR) 50 mg Tablet PO (10:52)
[2020-05-09] MEDS: chlorthalidone 25 mg Tablet PO (10:52)
[2020-05-09] MEDS: montelukast sodium 10 mg Tablet PO (10:52)
[2020-05-09] MEDS: ezetimibe 10 mg Tablet PO (10:53)
[2020-05-09] MEDS: levothyroxine 25 mcg Tablet PO (10:53)
[2020-05-09 12:00] VITALS: BP 108/72; PULSE 75; RESP 16; TEMP 36.4; O2SAT 96
--- NOTE | 2020-05-09 12:05 | PC.SOCIAL ---
Pg 2 IMM Explained to pt Pg 2 IMM. Pt verbally understands. No questions voiced. Provided pt a copy & left on pt's bedside table. Signed, dated, & timed a copy & placed in pt's chart.
--- NOTE | 2020-05-09 12:07 | XRR_ITS ---
PROCEDURE INFORMATION: Exam: XR Abdomen, 2 Views Exam date and time: 05/09/2020 12:44 PM Age: 74 years old Clinical indication: Prior surgery; Surgery date: 3-7 days post-operative; Surgery type: Appendectomy 4 days ago; Patient HX: Abdominal bloating; Additional info: Post op TECHNIQUE: Imaging protocol: XR of the abdomen. Views: 2 Views. COMPARISON: No relevant prior studies available. FINDINGS: Gastrointestinal tract: Normal. No bowel dilation. Intraperitoneal space: Normal. No free air. Bones/joints: Unremarkable for age. XR/XR abdomen min 2V [id number] IMPRESSION: No acute findings.
[2020-05-09] MEDS: docusate sodium 100 mg Capsule PO ×2 (13:37→17:52)
[2020-05-09 14:58] VITALS: BP 100/64; PULSE 70; RESP 16; TEMP 36.7; O2SAT 96
--- NOTE | 2020-05-09 16:06 | PM.PN ---
Subjective Subjective: Interval history: Patient has been doing well denies any nausea or vomiting, feels a bit bloated, no flatus or BM, tolerating full liquid diet Vitals/I&O/Wt Last Vital Signs Temp 98.0 F 05/09/20 14:58 Pulse 70 05/09/20 14:58 Resp 16 05/09/20 14:58 BP 100/64 05/09/20 14:58 Pulse Ox 96 05/09/20 14:58 05/09/20 05/09/20 05/09/20 06:59 14:59 22:59 Intake Total 506.667 / 3206.667 600 / 600 Output Total 1000 / 1250 500 / 500 Balance -493.333 / 1956.667 100 / 100 Weight last 48 hrs Weight 180 lb 8 oz Weight 170 lb 6 oz Physical Exam Narrative: EXAM NARRATIVE: Abdomen: Soft, non-tender, minimally distended, incision clean dry intact Data : 05/09/20 02:24 05/09/20 02:24 Micro: Microbiology 05/06/20 14:28 Urine Culture - Final Urine,Clean Catch A&P Assessment and plan (1) S/P laparoscopic appendectomy: With postop ileus Abdominal x-ray shows air within the colon Started senna and 1 dose of Fleet enema today DC IV fluids Hypokalemia: 60 mEq of KCl given Hopefully patient can go home in the next 24 hours with return of bowel function. 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
[2020-05-09] MEDS: Fleet Enema 133 mL Enema PR ×2 (16:35)
[2020-05-09] MEDS: potassium chloride ER 10 mEq Tablet 60 MEQ PO (16:35)
--- NOTE | 2020-05-09 16:38 | PM.PN ---
Subjective Subjective: Interval history: Patient has been doing well denies any nausea or vomiting, feels a bit bloated, no flatus or BM, tolerating full liquid diet. Had 1000 mL urine output overnight, mild hypokalemia noted, replaced, improving renal function. VSS, afebrile. POD # 3 s/p laparoscopic appendectomy. Case discussed with WILDER Jiménez noted, enema ordered. Medications: Reviewed: Yes Medication Review Details: Active Medications Generic Name Dose Route Start Last Admin Trade Name Freq PRN Reason Stop Dose Admin Acetaminophen 650 mg 05/06/20 16:08 05/07/20 09:57 Tylenol PO 650 mg Q6H PRN Administration Mild/Mod Pain Or Temp >/= 101 Hydrocodone Bitart /Acetaminophen 1 tab 05/06/20 21:20 [place] 5-325 Mg PO Q6H PRN MODERATE PAIN Alprazolam 0.25 mg 05/07/20 09:00 05/09/20 10:53 Xanax PO Not Given DAILY TJ Chlorthalidone 25 mg 05/07/20 15:55 05/09/20 10:52 Thalitone PO 25 mg DAILY TJ Administration Docusate Sodium 100 mg 05/09/20 12:06 05/09/20 13:37 Colace PO 100 mg BID TJ Administration Ezetimibe 10 mg 05/08/20 11:00 05/09/20 10:53 Zetia PO 10 mg DAILY TJ Administration Famotidine 20 mg 05/06/20 17:15 05/09/20 05:04 Pepcid Inj IVP 20 mg Q12H TJ Administration Fluticasone Propio mirta 1 spray 05/06/20 18:00 Flonase INTRANASAL BID PRN ALLERGIES Metronidazole 500 mg in 100 mls @ 100 mls/hr 05/06/20 21:00 05/09/20 13:39 Flagyl Iv IV 100 mls/hr Q8H TJ Administration Protocol Ciprofloxacin/Dext domitila 400 mg in 200 mls @ 200 mls/hr 05/08/20 01:30 05/09/20 13:38 Cipro IV 200 mls/hr Q12H TJ Administration Protocol Levothyroxine Sodi um 112 mcg 05/08/20 11:00 05/09/20 10:51 Synthroid PO 112 mcg DAILY TJ Administration Levothyroxine Sodi um 25 mcg 05/08/20 11:00 05/09/20 10:53 Synthroid PO 25 mcg DAILY TJ Administration Metoprolol Succina te 50 mg 05/08/20 11:00 05/09/20 10:52 Toprol Xl PO 50 mg DAILY TJ Administration Montelukast Sodium 10 mg 05/08/20 11:00 05/09/20 10:52 Singulair PO 10 mg DAILY TJ Administration Morphine Sulfate 2 mg 05/06/20 15:25 Morphine IVP Q4H PRN SEVERE PAIN Multivitamins Ther apeutic 1 tab 05/08/20 11:00 05/09/20 10:52 Multivitamin Tab PO 1 tab DAILY TJ Administration Nitroglycerin 0.4 mg 05/06/20 16:08 Nitrostat SUBLINGUAL Q5M PRN CHEST PAINS Non-Formulary Medi cation 125 mg 05/06/20 17:00 05/06/20 17:28 Vancomycin PO Not Given QID [facility] Yggig-[employer]-Liuk Ethyl Esters 1,000 mg 05/06/20 18:00 05/09/20 10:51 [place]-3 Fatty Ac ids PO 1,000 mg BID TJ Administration Ondansetron HCl 4 mg 05/06/20 15:25 Zofran PO Q8H PRN NAUSEA AND VOMITI NG Ondansetron HCl 4 mg 05/06/20 21:20 Zofran IVP Q6H PRN NAUSEA AND VOMITI NG Tramadol HCl 50 mg 05/06/20 16:08 Ultram PO Q4H PRN Moderate Pain codeine Allergy (Severe, Verified 05/06/20 19:06) ALGY-Rash Penicillins Allergy (Severe, Verified 05/06/20 19:06) ALGY-Rash Tetracyclines Allergy (Severe, Verified 05/06/20 19:06) ALGY-Rash Vitals/I&O/Wt Last Vital Signs Temp 98.0 F 05/09/20 14:58 Pulse 70 05/09/20 14:58 Resp 16 05/09/20 14:58 BP 100/64 05/09/20 14:58 Pulse Ox 96 05/09/20 14:58 05/09/20 05/09/20 05/09/20 06:59 14:59 22:59 Intake Total 506.667 / 3206.667 600 / 600 Output Total 1000 / 1250 500 / 500 Balance -493.333 / 1956.667 100 / 100 Weight last 48 hrs Weight 81.873 kg Weight 77.281 kg Physical Exam Const: COMMON NORMALS: no acute distress, patient oriented x3 and alert GENERAL APPEARANCE: cooperative and comfortable; not ill appearing ORIENTATION/CONSCIOUSNESS: Yes awake OTHER: -ambulating in room HENMT: COMMON NORMALS: normocephalic, atraumatic, hearing grossly normal bilaterally and moist oral mucous membranes HEAD & SCALP: normocephalic and atraumatic Eye: COMMON NORMALS: Equal, round and reactive pupils present, EOMs intact bilaterally and conjunctivae normal CONJUNCTIVA: Yes conjunctivae normal PUPIL: Yes Equal, round and reactive pupils present Neck/C-Spine: COMMON NORMALS: full ROM GENERAL: Yes normal visual inspection and Yes trachea midline Resp: COMMON NORMALS: normal respiratory effort, No retractions, No use of accessory muscles and clear to auscultation bilaterally EFFORT & INSPECTION: Yes able to speak in complete sentences, Yes symmetric chest movement and No tachypneic AUSCULTATION: clear to auscultation bilaterally Cardio: COMMON NORMALS: regular rate, regular rhythm, S1 normal heart sound present and S2 normal heart sound present RATE: regular rate RHYTHM: regular rhythm HEART SOUNDS: S1 normal heart sound present, S2 normal heart sound present and Murmur heart sound present systolic Timing: holo GI: COMMON NORMALS: Soft to palpation INSPECTION: Yes normal to inspection, Yes central obesity and Yes other (laparoscopic sites with no noted drainage, hematoma) AUSCULTATION: Yes Absent bowel sounds PALPATION: Yes Soft to palpation, Yes Tenderness to palpation present (GI) (minimally around laparoscopic incision sites), No Guarding due to palpation present (GI) and No Rigid due to palpation : BLADDER/KIDNEY EXAM: No catheter in place Extremity: COMMON NORMALS: normal to inspection, full ROM, no clubbing, cyanosis or edema and no pedal edema Neuro: COMMON NORMALS: patient oriented x3, moves all extremities, no focal motor deficits, no sensory deficits noted and gait normal SENSORIUM/ORIENTATION: Yes alert Psych: COMMON NORMALS: mental status grossly normal, Normal thought process present, cooperative, normal affect and speech normal SPEECH: Yes normal speech THOUGHT PROCESS: Normal thought process present Skin: COMMON NORMALS: no rashes or lesions noted, no jaundice, no petechiae and no mottling GENERAL SKIN EXAM: no rashes or lesions noted Data : 05/09/20 02:24 05/09/20 02:24 Micro: Microbiology 05/06/20 14:28 Urine Culture - Final Urine,Clean Catch A&P Assessment and plan (1) RLQ abdominal pain: -secondary to acute appendicitis; POD # 3 s/p laparoscopic appendectomy -Imaging concerning for rupture versus impending rupture of retrocecal appendix with noted diffuse soft tissue infiltration throughout the peritoneal cavity and retroperitoneum -Surgery consult by Dr. Gauthier appreciated -on ciprofloxacin and metronidazole, has noted allergy to PCN -Pain control, antiemetics as needed -d/c IVF; encourage oral hydration -leukocytosis resolved -blood cx: prelim negative -continue to monitor vital signs -on FLD; advance as tolerated -appears to have post-op ileus, KUB noted with gas. Enema ordered, start on bowel regimen Status: Acute (2) C. difficile enteritis: -Has been on vancomycin PO for treatment of C. difficile since 05/02/20; Vanc on hold as on Flagyl -Contact isolation precautions -Has not had any loose stools since 05/04/20 Status: Acute (3) UTI (urinary tract infection): -UA indicative of infection with noted leukocyte esterase, pyuria, bacteria -urine cx: prelim negative -is already on antibiotics Status: Acute Qualifiers: Hematuria presence: without hematuria Urinary tract infection type: acute cystitis Qualified Code(s): N30.00 - Acute cystitis without hematuria (4) CKD (chronic kidney disease): -baseline Cr appears to be around 1.2-1.5 -continue to monitor renal function; patient had a contrast CT done -avoid nephrotoxins, renally dose meds -off IVF hydration Status: Chronic Qualifiers: Chronic kidney disease stage: unspecified stage Qualified Code(s): N18.9 - Chronic kidney disease, unspecified (5) Hypertension: -continue to monitor vital signs; BP more stable this afternoon -on chlorthalidone Status: Chronic Qualifiers: Hypertension type: essential hypertension Qualified Code(s): I10 - Essential (primary) hypertension (6) Pulmonary hypertension: -moderate pulmonary HTN per last Echo -has associated nocturnal hypoxemia; 2 L NC qhs Status: Chronic (7) Anxiety: -anxiolytics as needed Status: Chronic (8) Nocturnal hypoxemia: Status: Chronic (9) CHF (NYHA class III, ACC/AHA stage C): -has known chronic diastolic CHF, no acute exacerbation currently though will need to monitor for fluid overload as is on IV fluid hydration -Echo (01/2020): EF=65%, moderate aortic stenosis, moderate MR, mild AR, moderate to severe TR, moderate pulmonary HTN (54) -CXR per my review is unremarkable -follows up with Dr. Edge as outpatient Status: Chronic (10) Aortic stenosis, moderate: -systolic murmur on exam -moderate confirmed on Echo -has been following up with Cardiology Status: Chronic (11) Hyperlipidemia: -is on Zetia Status: Chronic Qualifiers: Hyperlipidemia type: mixed hyperlipidemia Qualified Code(s): E78.2 - Mixed hyperlipidemia (12) Hypothyroidism: -on levothyroxine Status: Chronic Qualifiers: Hypothyroidism type: acquired Qualified Code(s): E03.9 - Hypothyroidism, unspecified Additional A&P Information -GI ppx with famotidine -DVT ppx with SCDs; encourage ambulation -Dispo: home -Code status: FULL code Attestations Medical Necessity Statement*: Patient requires hospitalization for continued post-op care pending resolution of post-op ileus. Time Spent in Patient Care: 16 - 35 minutes (>than 50% of time spent in counselling and/or direct pt care on unit). Coding Level of Care Code Acute Well Service Floor Worker for Chg Fwd Exam Comprehensive Diagnoses RLQ abdominal pain R10.31 C. difficile enteritis A04.72 UTI (urinary tract infection) N30.00 Hematuria presence: without hematuria Urinary tract infection type: acute cystitis CKD (chronic kidney disease) N18.9 Chronic kidney disease stage: unspecified stage Hypertension I10 Hypertension type: essential hypertension Pulmonary hypertension I27.20 Anxiety F41.9 Nocturnal hypoxemia G47.34 CHF (NYHA class III, ACC/AHA stage C) I50.9 Aortic stenosis, moderate I35.0 Hyperlipidemia E78.2 Hyperlipidemia type: mixed hyperlipidemia Hypothyroidism E03.9 Hypothyroidism type: acquired
[2020-05-09 19:21] VITALS: BP 116/62; PULSE 40; RESP 18; TEMP 36.5; O2SAT 94
[2020-05-09] MEDS: polyethylene glycol 3350 Pkt 17 gm PO (20:09)
[2020-05-09] MEDS: potassium chloride premix 40 MEQ/100 ML PREMIX 25 MEQ IV (22:29)
[2020-05-09] MEDS: lidocaine 1% INJ 20 mL 5 ML IV (22:29)
[2020-05-10] VITALS (8 sets, daily range): BP systolic 109–125; BP diastolic 70–79; PULSE 75–83; RESP 18–20; TEMP 36.4; O2SAT 94–97
[2020-05-10] MEDS: ciprofloxacin 400 MG/200 ML PREMIX 200 MG IV (01:43)
[2020-05-10] MEDS: potassium chloride premix 40 MEQ/100 ML PREMIX 25 MEQ IV (03:56)
[2020-05-10] MEDS: famotidine 20 mg/2 mL INJ IVP (04:58)
[2020-05-10 06:08] LABS: Potassium 3.7 mmol/L (3.5-5.1)
[2020-05-10] MEDS: montelukast sodium 10 mg Tablet PO (07:53)
[2020-05-10] MEDS: ezetimibe 10 mg Tablet PO (07:53)
[2020-05-10] MEDS: chlorthalidone 25 mg Tablet PO (07:53)
[2020-05-10] MEDS: multivitamin therapeutic Tablet 1 TAB PO (07:54)
[2020-05-10] MEDS: levothyroxine 112 mcg Tablet PO (07:54)
[2020-05-10] MEDS: docusate sodium 100 mg Capsule PO (07:54)
[2020-05-10] MEDS: metoprolol succinate ER (24 HR) 50 mg Tablet PO (07:55)
[2020-05-10] MEDS: levothyroxine 25 mcg Tablet PO (07:55)
[2020-05-10] MEDS: metroNIDAZOLE IV 500 MG/100 ML PREMIX 100 MG IV (07:57)
--- NOTE | 2020-05-10 09:11 | PM.DCS ---
Discharge Providers Date of Admission: 05/06/20 14:44 Date of Discharge: May 10, 2020 Attending Provider at Admission: Jessica York MD Attending Provider at Discharge: Jessica York MD Primary Care Provider: Shanthi Davis APN Diagnoses at Discharge Discharge Diagnosis (1) RLQ abdominal pain: Status: Acute Problem details: -secondary to acute appendicitis; POD # 4 s/p laparoscopic appendectomy -Imaging concerning for rupture versus impending rupture of retrocecal appendix with noted diffuse soft tissue infiltration throughout the peritoneal cavity and retroperitoneum -Surgery consult by Dr. Gauthier appreciated -on ciprofloxacin and metronidazole, has noted allergy to PCN -Pain control, antiemetics as needed -d/c IVF; encourage oral hydration -leukocytosis resolved -blood cx: prelim negative -continue to monitor vital signs -advanced to GI soft diet -post-op ileus resolved as + flatus and large BM this AM, KUB noted with gas. (2) C. difficile enteritis: Status: Acute Problem details: -Has been on vancomycin PO for treatment of C. difficile since 05/02/20; Vanc on hold as on Flagyl; can resume on d/c -Contact isolation precautions -Has not had any loose stools since 05/04/20 (3) UTI (urinary tract infection): Status: Acute Problem details: -UA indicative of infection with noted leukocyte esterase, pyuria, bacteria -urine cx: negative -no need for continued abx on d/c as asymptomatic Qualifiers: Hematuria presence: without hematuria Urinary tract infection type: acute cystitis Qualified Code(s): N30.00 - Acute cystitis without hematuria (4) CKD (chronic kidney disease): Status: Chronic Problem details: -baseline Cr appears to be around 1.2-1.5 -continue to monitor renal function; patient had a contrast CT done -avoid nephrotoxins, renally dose meds -off IVF hydration Qualifiers: Chronic kidney disease stage: unspecified stage Qualified Code(s): N18.9 - Chronic kidney disease, unspecified (5) Hypertension: Status: Chronic Problem details: -continue to monitor vital signs; BP more stable this afternoon -on chlorthalidone Qualifiers: Hypertension type: essential hypertension Qualified Code(s): I10 - Essential (primary) hypertension (6) Pulmonary hypertension: Status: Chronic Problem details: -moderate pulmonary HTN per last Echo -has associated nocturnal hypoxemia; 2 L NC qhs (7) Anxiety: Status: Chronic Problem details: -anxiolytics as needed (8) Nocturnal hypoxemia: Status: Chronic Problem details: on 2 L NC qhs (9) CHF (NYHA class III, ACC/AHA stage C): Status: Chronic Problem details: -has known chronic diastolic CHF, no acute exacerbation currently though will need to monitor for fluid overload as is on IV fluid hydration -Echo (01/2020): EF=65%, moderate aortic stenosis, moderate MR, mild AR, moderate to severe TR, moderate pulmonary HTN (54) -CXR per my review is unremarkable -follows up with Dr. Edge as outpatient (10) Aortic stenosis, moderate: Status: Chronic Problem details: -systolic murmur on exam -moderate confirmed on Echo -has been following up with Cardiology (11) Hyperlipidemia: Status: Chronic Problem details: -is on Zetia Qualifiers: Hyperlipidemia type: mixed hyperlipidemia Qualified Code(s): E78.2 - Mixed hyperlipidemia (12) Hypothyroidism: Status: Chronic Problem details: -on levothyroxine Qualifiers: Hypothyroidism type: acquired Qualified Code(s): E03.9 - Hypothyroidism, unspecified Reason for Visit Reason for Visit: abd pain/c diff positive Hospital Course Hospital Course: Patient was admitted to the medical surgical floor and surgery consulted following findings on imaging indicative of acute appendicitis with possible impending rupture. She was hydrated appropriately and started on empiric IV antibiotics. Dr. Gauthier evaluated the patient and she had a laparoscopic appendectomy done on the day of admission, procedure was uncomplicated. Urine output was initially mediocre but following resumption of her home dose of diuretics at this improved and she has continued to void appropriately. Her right lower quadrant pain resolved following her surgery. She had been on oral vancomycin for treatment of C. difficile enteritis which was held as she was on ciprofloxacin and Flagyl during her hospital stay. She is postop day #4 today. Slightly extended hospital stay due to development of post-op ileus. Following initiation of bowel regimen ileus has not resolved as she had a large bowel movement earlier this morning and is passing gas. Diet was advanced as tolerated. Renal function is at baseline, hemoglobin is stable and leukocytosis resolved; she has consistently been afebrile. Blood cultures are negative. She has been maintained on her baseline oxygen requirement of 2 L nightly. Laparoscopic sites are healing appropriately and patient has been encouraged to continue to ambulate. She is to seek medical attention immediately should she have worsening abdominal pain, persistent nausea/vomiting, inability to void or have a bowel movement. She is to resume oral vancomycin for the next 3 days to complete a 10-day course of treatment for C. difficile. While hospitalized she was maintained on contact isolation precautions. She is to continue to advance her diet as tolerated and is encouraged to hydrate appropriately. She will need to follow-up with her primary care provider and is to continue to follow-up with her chain person as well. Of note patient's urinalysis was found to be indicative of infection though patient is asymptomatic and urine cultures have been negative. As such, treatment for this will not be continued. Discharge Summary: -Patient to follow-up with her primary care provider within 1 week -Patient to have post-op follow up with Dr. Gauthier in 2 weeks -Patient to continue to follow-up with cardiology as scheduled. Physical Exam Const: COMMON NORMALS: no acute distress, patient oriented x3 and alert GENERAL APPEARANCE: cooperative and comfortable; not ill appearing ORIENTATION/CONSCIOUSNESS: Yes awake OTHER: -ambulating in room HENMT: COMMON NORMALS: normocephalic, atraumatic, hearing grossly normal bilaterally and moist oral mucous membranes HEAD & SCALP: normocephalic and atraumatic Eye: COMMON NORMALS: Equal, round and reactive pupils present, EOMs intact bilaterally and conjunctivae normal CONJUNCTIVA: Yes conjunctivae normal PUPIL: Yes Equal, round and reactive pupils present Neck/C-Spine: COMMON NORMALS: full ROM GENERAL: Yes normal visual inspection and Yes trachea midline Resp: COMMON NORMALS: normal respiratory effort, No retractions, No use of accessory muscles and clear to auscultation bilaterally EFFORT & INSPECTION: Yes able to speak in complete sentences, Yes symmetric chest movement and No tachypneic AUSCULTATION: clear to auscultation bilaterally Cardio: COMMON NORMALS: regular rate, regular rhythm, S1 normal heart sound present and S2 normal heart sound present RATE: regular rate RHYTHM: regular rhythm HEART SOUNDS: S1 normal heart sound present, S2 normal heart sound present and Murmur heart sound present systolic Timing: holo GI: COMMON NORMALS: Soft to palpation INSPECTION: Yes normal to inspection, Yes central obesity and Yes other (laparoscopic sites with no noted drainage, hematoma) AUSCULTATION: Yes Absent bowel sounds PALPATION: Yes Soft to palpation, Yes Tenderness to palpation present (GI) (minimally around laparoscopic incision sites), No Guarding due to palpation present (GI) and No Rigid due to palpation : BLADDER/KIDNEY EXAM: No catheter in place Extremity: COMMON NORMALS: normal to inspection, full ROM, no clubbing, cyanosis or edema and no pedal edema Neuro: COMMON NORMALS: patient oriented x3, moves all extremities, no focal motor deficits, no sensory deficits noted and gait normal SENSORIUM/ORIENTATION: Yes alert Psych: COMMON NORMALS: mental status grossly normal, Normal thought process present, cooperative, normal affect and speech normal SPEECH: Yes normal speech THOUGHT PROCESS: Normal thought process present Skin: COMMON NORMALS: no rashes or lesions noted, no jaundice, no petechiae and no mottling GENERAL SKIN EXAM: no rashes or lesions noted Discharge Data Data Completed and Pending: Completed Studies During Hospitalization Category Date Time Status CT abdomen pelvis w con* [id number] Stat Cat Scan 05/06/20 12:26 Completed XR abdomen min 2V [id number] Routine Exams 05/09/20 12:07 Completed XR chest 1V freddy ble [id number] Stat Exams 05/06/20 14:15 Completed Pathology: Surgic al [PTH] Routine Pth 05/06/20 20:42 Completed Pending at discharge Category Date Time Status ES surgery / GI i mages Routine Exams 05/06/20 19:06 Taken Blood Culture Sta t Lab 05/06/20 16:50 Results Labs from last 24 hours 05/10/20 05:39 Potassium 3.7 Vitals: Last Vital Signs Temp 97.6 F 05/10/20 08:00 Pulse 77 05/10/20 08:00 Resp 18 05/10/20 08:00 BP 125/79 05/10/20 08:00 Pulse Ox 94 05/10/20 08:00 Discharge Plan Discharge Patient Disposition: Home, Self-Care Condition: Stable Prescriptions: Continued alprazolam 0.25 mg tablet 0.25 mg PO DAILY RF: 0 aspirin [Adult Low Dose Aspirin] 81 mg tablet,delayed release (DR/EC) 81 mg PO DAILY RF: 0 biotin 1 mg capsule 1 mg PO DAILY RF: 0 All Day Allergy (cetirizine) 10 mg capsule 10 mg PO DAILY RF: 0 fluticasone propionate [Flonase Allergy Relief] 50 mcg/actuation spray,suspension 1 spray INTRANASAL BID PRN (Reason: ALLERGIES) RF: 0 levothyroxine 137 mcg capsule 137 mcg PO DAILY RF: 0 metoprolol succinate 50 mg tablet extended release 24 hr 50 mg PO DAILY RF: 0 multivitamin Tablet 1 tab PO DAILY RF: 0 nitroglycerin 0.4 mg tablet, sublingual 0.4 mg SUBLINGUAL Q5M PRN (Reason: CHEST PAINS) RF: 0 omega-3 fatty acids 1,000 mg capsule 1,000 mg PO BID RF: 0 potassium gluconate 595 mg (99 mg) tablet 595 mg PO DAILY RF: 0 ezetimibe [Zetia] 10 mg tablet 10 mg PO DAILY RF: 0 montelukast 10 mg Tablet 10 mg PO DAILY RF: 0 melatonin 10 mg Tablet 10 mg PO DAILY RF: 0 chlorthalidone 25 mg tablet 25 mg PO DAILY RF: 0 vancomycin 125 mg Capsule 125 mg PO QID 3 Days Qty: 0 RF: 0 tramadol 50 mg Tablet 50 mg PO Q4H PRN (Reason: Moderate Pain) Qty: 30 RF: 0 Discontinued chlorthalidone 25 mg Tablet 25 mg PO DAILY RF: 0 Discharge Orders: Discharge Order (Routine); Ordered 05/10/20 Ordered By: Jessica York Referrals: Shanthi Davis APN [Primary Care Provider] - 4-7 days (Post hospital discharge follow up. Treated for acute appendicitis s/p laparoscopic appendectomy. Faxed face sheet and information the [facility] for them to get ahold of you with a date and time or you can call them Tuesday. ) Ray Gauthier MD [Physician] - 2 weeks Discharge Diet: Advance as tolerated Discharge Activity: Increase activity as tolerated and Oxygen as instructed Patient Instructions: Vancomycin (By mouth), Laparoscopic Appendectomy (DC) Activity Restrictions/Additional Instructions: -Continue to use your oxygen at night -Please continue taking Vancomycin for another 3 days to complete the 10 day course for treatment of C.difficile enteritis. Please continue to practice good hand washing at all times 1. Up and walking as tolerated. 2. Ok to shower in 48 hours after surgery. 3. Remove Dermabond dressing in 7-10 days. 4. Do not lift more than 10 pounds. 5. Do not operate heavy machinery or drive while using pain medications. 6. Advised to return to ER or contact my office if there are any signs of infection like, increasing pain, fevers, chills, redness or drainage of pus. Discharge Attestations Time Spent in Discharge Care*: greater than 30 min Specific Discharge Activities: Specific discharge activities: educating patient, discussing with pcp/other providers, discussing with cyanide case hardener/social workers/dc planners, documenting/other paperwork and evaluating patient/reviewing data Status at Discharge: Cognitive status at discharge: cognitively intact, Behavioral status at discharge: cooperative, Functional status at discharge: independent ambulation Overall status at discharge: patient is progressing back to baseline Quality Metrics Clinical Quality Measures During this hospital stay, did patient experience: None Coding Level of Care Code Acute Manager Golf for Chg Fwd Exam Comprehensive Diagnoses RLQ abdominal pain R10.31 C. difficile enteritis A04.72 UTI (urinary tract infection) N30.00 Hematuria presence: without hematuria Urinary tract infection type: acute cystitis CKD (chronic kidney disease) N18.9 Chronic kidney disease stage: unspecified stage Hypertension I10 Hypertension type: essential hypertension Pulmonary hypertension I27.20 Anxiety F41.9 Nocturnal hypoxemia G47.34 CHF (NYHA class III, ACC/AHA stage C) I50.9 Aortic stenosis, moderate I35.0 Hyperlipidemia E78.2 Hyperlipidemia type: mixed hyperlipidemia Hypothyroidism E03.9 Hypothyroidism type: acquired
[2020-05-10] MEDS: polyethylene glycol 3350 Pkt 17 gm PO (11:06)
--- NOTE | 2020-05-10 11:21 | P.PN_ITS ---
Subjective Subjective: Interval history: Patient denies any significant abdominal pain, nausea or vomiting, had a bowel movement today Vitals/I&O/Wt Last Vital Signs Temp 97.6 F 05/10/20 09:27 Pulse 77 05/10/20 09:27 Resp 18 05/10/20 09:27 BP 125/79 05/10/20 09:27 Pulse Ox 94 05/10/20 09:27 05/09/20 05/10/20 05/10/20 22:59 06:59 14:59 Intake Total 880 / 2130 650 / 2130 360 / 360 Output Total 850 / 1350 Balance 880 / 780 -200 / 780 360 / 360 Weight last 48 hrs Weight 179 lb 8 oz Weight 180 lb 8 oz Physical Exam Narrative: EXAM NARRATIVE: Abdomen: Soft, nontender, slightly distended, incisions healing well Data : 05/09/20 02:24 05/10/20 05:39 A&P Assessment and plan (1) S/P laparoscopic appendectomy: Doing well DC home today, complete course of oral vancomycin for C. difficile colitis Status: Acute Attestations Medical Necessity Statement*: Status post laparoscopic appendectomy going home today Coding Level of Care Code Acute Gasoline Engine Assembler for Chg Fwd Diagnoses S/P laparoscopic appendectomy Z90.49
== END 2020-05-10 14:18 | disposition home or self-care (01) | DRG 342 ==
LOC: ER 12:23 → MEDSURG 15:09
PROVIDERS: Family Medicine; Surgery; Admitting Provider Family Medicine; PCP Nurse Practitioner; Visit Provider Family Medicine
PROC: 0DTJ4ZZ Resection of Appendix, Percutaneous Endoscopic Approach (ICD-10-PCS; CPT 44970; principal; 2020-05-06 19:15)
DX: K35.80 Unspecified acute appendicitis (principal); A04.72 Enterocolitis due to Clostridium difficile, not specified as recurrent; N30.00 Acute cystitis without hematuria; I13.0 Hypertensive heart and chronic kidney disease with heart failure and stage 1 through stage 4 chronic kidney disease, or unspecified chronic kidney disease; K56.7 Ileus, unspecified; I50.32 Chronic diastolic (congestive) heart failure; I47.1 Supraventricular tachycardia; N18.9 Chronic kidney disease, unspecified; I27.20 Pulmonary hypertension, unspecified; I35.0 Nonrheumatic aortic (valve) stenosis; F41.9 Anxiety disorder, unspecified; E78.5 Hyperlipidemia, unspecified; E03.9 Hypothyroidism, unspecified; R09.02 Hypoxemia; Z79.82 Long term (current) use of aspirin; I44.7 Left bundle-branch block, unspecified
CPT/HCPCS: 12345; 36415; 71045; 74019; 74177; 80048; 80053; 81001; 83605; 83690; 84132; 85025; 87040; 87086; 88304; 96375; 99283; J0330; J0744; J2001; J2405; J2704; J2710; J3370; J3480; J3490; J7030; Q9967; S0030

== ENCOUNTER 2020-08-12 10:26 | Outpatient (CLI) | payer MEDICARE, SELFPAY ==
--- NOTE | 2020-08-12 10:32 | CT_ITS ---
WS: [id number] CT CHEST WITH INTRAVENOUS CONTRAST HISTORY: HILAR MASS/NONSPECIFIC ABNORMAL FINDING OF LUNG FIELD TECHNIQUE: Contiguous 5 mm axial imaging performed on the thorax. Coronal and sagittal reformats are submitted. All CT scans at [facility] use at least one of these dose optimization techniq ues: automated exposure control; mA and/or kV adjustment per patient size (includes targeted exams wh ere dose is matched to clinical indication); or iterative reconstruction. CONTRAST: Omnipaque 300; 75 mL IV. DLP: 355.03 mGy.cm COMPARISON: 02/13/2020, 05/06/2020 Lungs and central airway: Hyperexpanded lungs with mild pulmonary venous congestion. Overall there bernard s been an improvement in the scattered opacifications and groundglass attenuation in all lobes. Persi stent partial atelectasis LEFT lower lobe. Round area of low attenuation measuring 1.4 cm in the RIGH T lower lobe may be entrapped fluid within the atelectasis at the RIGHT hilum. Pleura: Small bilateral pleural effusions. LEFT effusion is slightly greater than the RIGHT. These ef fusions have slightly increased in size since the prior exam. Heart and pericardium: Moderately enlarged heart chambers. Most significant enlargement in the LEFT v entricle and atrium. There is a small pericardial effusion. Mediastinum and shivam: Small mediastinal and hilar lymph nodes. There are numerous lymph nodes present . Vessels: Normal size aorta. Pulmonary artery size is normal. Chest wall and lower neck: Numerous axillary lymph nodes with the largest measuring 8 mm in the LEFT axilla. Diffuse soft tissue anasarca throughout the thorax. Upper abdomen: Hepatic congestion and hepatomegaly. Anasarca in the soft tissues of the upper abdomen and mesenteric edema. Osseous structures: No destructive process. CT/CT chest w con* [id number] IMPRESSION: 1. Small bilateral pleural effusions, LEFT greater than RIGHT with mild progre ssion since 02/13/2020. 2. Marked cardiomegaly, greatest involving the LEFT heart with a new small cir cumferential effusion. 3. Chronic emphysema with overall improved aeration since 02/13/2020. 4. Axillary, mediastinal and hilar numerous but subcentimeter lymph nodes. Armida ctive. Diffuse neoplastic process not excluded. Favor benign reactive process a s these lymph nodes were also present on 02/13/2020 with mild progression. 5. Significant soft tissue anasarca. 6. Low-attenuation 1.4 cm nodule in the medial RIGHT lower lobe. Suspect this may be entrapped pleural fluid and atelectatic lung. Significantly decreased in size since 05/06/2020.
[2020-08-12 11:35] LABS: Blood Urea Nitrogen 16 mg/dL (8-23)
[2020-08-12] MEDS: iodixanol 320 mg/mL 100mL Btl IV (13:41)
== END 2020-08-12 10:27 | disposition home or self-care (01) ==
LOC: RAD 10:30
PROVIDERS: PCP Nurse Practitioner; Visit Provider Nurse Practitioner
DX: R91.8 Other nonspecific abnormal finding of lung field (principal); Z12.31 Encounter for screening mammogram for malignant neoplasm of breast; R22.2 Localized swelling, mass and lump, trunk; J90 Pleural effusion, not elsewhere classified; I51.7 Cardiomegaly; J43.9 Emphysema, unspecified; R60.1 Generalized edema; R91.1 Solitary pulmonary nodule
CPT/HCPCS: 71260; 82565; 84520

== ENCOUNTER 2020-08-12 11:24 | Outpatient (CLI) | payer MEDICARE, SELFPAY ==
--- NOTE | 2020-08-12 11:31 | MM_ITS ---
WS: [id number] BILATERAL SCREENING DIGITAL MAMMOGRAM WITH CAD HISTORY: SCREEN COMPARISON: 05/15/2019 and 11/16/2016 Bilateral CC and MLO views submitted. Computer aided detection analyzed. Breast composition: Fibroglandular pattern has increased. There is soft tissue thickening which is di ffuse and bilateral. Suspect subcutaneous edema. No suspicious masses, microcalcifications or archite ctural distortion. Partially visualized round 2 cm lymph node in the LEFT axilla is of increased dens ity. MM/[place] [id number] IMPRESSION: BI-RADS: 0-Incomplete: Need additional imaging evaluation FOLLOW UP: Need Additional Imaging Recommend ultrasound evaluation of the LEFT enlarged axillary lymph node. Suspect mild subcutaneous edema. Correlate for possible fluid overload or anasa rca.
== END 2020-08-12 11:25 | disposition home or self-care (01) ==
LOC: RADSHAW 11:29
PROVIDERS: PCP Nurse Practitioner; Visit Provider Nurse Practitioner
DX: Z12.31 Encounter for screening mammogram for malignant neoplasm of breast (principal); R59.0 Localized enlarged lymph nodes
CPT/HCPCS: 77067

== ENCOUNTER 2020-08-28 07:44 | Outpatient (CLI) | payer MEDICARE, SELFPAY ==
--- NOTE | 2020-08-28 07:56 | US_ITS ---
WS: [id number] ULTRASOUND SOFT TISSUES LEFT axilla HISTORY: LOCALIZED ENLARGED LYMPH NODES-L AXILLA COMPARISON: 08/12/2020 TECHNIQUE: 2-D and color Doppler imaging is submitted. There are numerous lymph nodes in the LEFT axilla. The largest lymph node measures 2 cm. Fatty shivam a re still present although the lymph nodes are enlarged. Normal thickness of the cortex. No increased vascularity. US/US soft tissue/extremity [id number] IMPRESSION: LEFT axillary lymph nodes are slightly enlarged as seen on the prior CT of 08/12. These may be reactive. Cannot exclude early metastatic involvement but t hought to be less likely.
== END 2020-08-28 07:45 | disposition home or self-care (01) ==
LOC: RAD 07:47
PROVIDERS: PCP Nurse Practitioner; Visit Provider Nurse Practitioner
DX: R59.0 Localized enlarged lymph nodes (principal)
CPT/HCPCS: 76882

== ENCOUNTER 2020-10-06 08:11 | Outpatient (CLI) | payer MEDICARE, SELFPAY ==
--- NOTE | 2020-10-06 09:15 | US_ITS ---
WS: [id number] INDICATION: Enlarged left axillary lymph nodes TECHNIQUE: Ultrasound-guided left axillary lymph node biopsy FINDINGS: The procedure including risk, benefits, and complications were discussed with the patient w ho agreed to proceed. Timeout was performed. Using sterile technique patient was prepped and draped i n usual sterile fashion. After 1% lidocaine, using ultrasound guidance, 5, 18-gauge cores were obtain ed. No immediate complications. US/US biopsy lymph node [id number] IMPRESSION: Uncomplicated ultrasound-guided left axillary biopsy.
== END 2020-10-06 08:12 | disposition home or self-care (01) ==
LOC: RAD 08:18
PROVIDERS: PCP Internal Medicine; Visit Provider Surgery
DX: R59.1 Generalized enlarged lymph nodes (principal)
CPT/HCPCS: 38505; 76942; 88305